=== PATIENT | male | born 1950 | race Caucasian/White ===

== ENCOUNTER 2023-01-30 21:05 | Emergency (ER) | payer MEDICARE, SELFPAY ==
--- NOTE | ~2023-01-30 | XR_ITS ---
EXAMINATION: XR chest 2V Exam Date/Time: 01/30/2023 22:00 CDT HISTORY: Fatigue, loss of appetite. Hx covid x3wks ago Comparison: 11/03/2018. RESULT: Lines, tubes, and devices: None. Lungs and pleura: Senescent change, otherwise clear. Cardiomediastinal silhouette: Stable. Other: No acute osseous or upper abdominal finding. IMPRESSION: No acute cardiopulmonary process. Reviewed, dictated and finalized at location K.
[2023-01-30 21:08] VITALS: BP 98/73; PULSE 81; RESP 18; TEMP 36.6; O2SAT 95
--- NOTE | 2023-01-30 21:39 | ECG_ITS ---
Measurements Intervals [place] Rate: 68 P: 64 SD: 262 QRS: 33 QRSD: 137 T: 37 QT: 380 QTc: 405 Interpretive Statements SINUS RHYTHM WITH FIRST DEGREE AV BLOCK RIGHT BUNDLE BRANCH BLOCK [120+ ms QRS DURATION, UPRIGHT V1, 40+ ms S IN I/aVL/V4/V5/V6] NO PREVIOUS ECG AVAILABLE FOR COMPARISON Electronically Signed On 01-31-2023 18:00:19 CDT by Suyapa Salgado M.D.
[2023-01-30 22:05] LABS: Basophils Absolute Auto 0.1 K/mm3 (0.0-0.1); Basophils Percent Auto 0.8 % (0.2-1.2); Eosinophils Absolute Auto 0.1 K/mm3 (0-0.3); Eosinophils Percent Auto 1.7 % (0-4.4); Hematocrit 33.9 % (42.0-52.0); Hemoglobin 11.3 g/dL (14.0-18.0); Immature Granulocyte Absolute 0.02 K/mm3 (0.00-0.031); Immature Granulocyte Percent A 0.3 % (0-0.5); Lymphocytes Absolute Auto 2.25 K/mm3 (0.9-3.2); Lymphocytes Percent Auto 37.7 % (18.3-44.2); Mean Corpuscular HGB Conc 33.3 g/dl (32-36); Mean Corpuscular Hemoglobin 32.5 pg (26-34); Mean Corpuscular Volume 97.4 fl (80-100); Mean Platelet Volume 9.6 fl (7.4-10.4); Monocytes Absolute Auto 0.5 K/mm3 (0.1-0.6); Monocytes Percent Auto 8.7 % (2.6-8.5); Neutrophils Percent Auto 50.8 % (45.5-73.1); Platelet Count Result 246 k/mm3 (150-375); Red Blood Count 3.48 M/mm3 (4.6-6.20); Red Cell Distribution Width 12.2 % (11.5-14.5)
[2023-01-30 22:37] VITALS: BP 115/66; PULSE 71; RESP 16; O2SAT 97
[2023-01-30 22:41] LABS: Alanine Aminotransferase 33 U/L (6-50); Alkaline Phosphatase 148 U/L (38-126); Anion Gap 2 mmol/L (8-16); Aspartate Amino Transferase 33 U/L (17-59); Bilirubin,Total 0.4 mg/dL (0.2-1.3); Blood Urea Nitrogen 8 mg/dL (9-20); Calcium 7.9 mg/dL (8.4-10.2); Carbon Dioxide 30 mmol/L (22-30); Chloride 102 mmol/L (98-107); Estimated CRCL calculation 75 ml/min; Estimated Glomerular Filt Rate > 60; Glucose 387 mg/dL (65-110); NT Pro B Type Natriuretic Pept 72 pg/mL (19.9-100); Potassium 4.1 mmol/L (3.4-5.0); Sodium 134 mmol/L (137-145); Troponin I < 0.012 ng/mL (0.000-0.034)
[2023-01-30] MEDS: SODIUM CHLORIDE 0.9% IV 1,000 ML 999 ML IV CONT (22:43)
[2023-01-30 23:17] LABS: Appearance Urine Clear (Clear); Bilirubin Urine Negative (Negative); Blood Urine Negative (Negative); Color Urine Yellow (Yellow); Glucose Urine UA 3+ mg/dL (Negative); Ketones Urine Negative (Negative); Leukocyte Esterase Ur Negative LEU/UL (Negative); Nitrate Urine Negative (Negative); Protein Urine Negative (Negative); Specific Grav Ur 1.027 (1.001-1.035); pH Urine 7.5 (5.0-9.0)
[2023-01-30 23:23] LABS: Add Urine Microscopic? YES
--- NOTE | 2023-01-30 23:39 | ED.GENADULT ---
HPI - General Adult General Chief complaint: Upper Respiratory Infection Stated complaint: uri Time Seen by Provider: 01/30/23 21:39 History of Present Illness HPI narrative: Patient 72-year-old gentleman who presents the emergency department with chief complaint of generalized weakness. Patient reports that he was diagnosed with COVID-19 and had a treatment with steroids and another medication and then was treated with antibiotics and reports that he has continued to felt foggy and just generalized weakness. The patient reports he had a dry cough but denies fever the family noticed that he has been less active than normal the patient also reports he had decreased appetite. Patient does have history of diabetes and reports that his blood sugars have been up and down. Related Data Allergies Allergy/AdvReac Type Severity Reaction Status Date / Time No Known Allergies Allergy Unverified 11/03/18 16:21 Review of Systems Review of Systems: A 10 system review of systems was completed on the patient and is negative except for what is stated in the HPI. Nursing and ancillary documentation was reviewed. Exam Narrative: GENERAL: Well-appearing, well-nourished, and in no acute distress. HEAD: Normocephalic, atraumatic. EYES: PERRLA and EOMI. ENT: Nares clear, no rhinorrhea or epistaxis. Mucous membranes dry. NECK: Supple. CHEST: Clear to auscultation. No respiratory distress. HEART: Regular rate and rhythm. No murmur heard. Normal peripheral pulses. ABDOMEN: Soft, nontender, nondistended, normal active bowel sounds. EXTREMITIES: Normal range of motion. No edema. SKIN: Warm, dry, no rash. NEURO: No focal deficits. Alert and oriented x3. PSYCH: Normal mood and affect. Course Vital Signs Vital signs: Vital Signs Temperature 36.6 C 01/30/23 21:08 Pulse Rate 81 01/30/23 21:08 Respiratory Rate 18 01/30/23 21:08 Blood Pressure 98/73 L 01/30/23 21:08 Pulse Oximetry 95 01/30/23 21:08 Oxygen Delivery Room Air 01/30/23 21:08 Temperature 36.6 C 01/30/23 21:08 Pulse Rate 71 01/30/23 22:37 Respiratory Rate 16 01/30/23 22:37 Blood Pressure 115/66 01/30/23 22:37 Pulse Oximetry 97 01/30/23 22:37 Oxygen Delivery Room Air 01/30/23 21:08 Medical Decision Making MDM Narrative Medical decision making narrative: Differential diagnosis includes pneumonia, dehydration, DKA, UTI, electrolyte abnormality. Chest x-ray showed no evidence of focal infiltrate EKG showed right bundle branch block with a rate of [address] elevation or ST depression Laboratory studies showed a white blood cell count that was 6.0 hemoglobin was 11.3. Electrolytes showed a glucose of 387 but no elevated anion gap and no signs of renal failure creatinine was 0.7. Troponin level was less than 0.02 BNP was 72 urinalysis that showed evidence of 3+ glucose no ketones Vital Signs Vital Signs: Vital Signs Temperature 36.6 C 01/30/23 21:08 Pulse Rate 81 01/30/23 21:08 Respiratory Rate 18 01/30/23 21:08 Blood Pressure 98/73 L 01/30/23 21:08 Pulse Oximetry 95 01/30/23 21:08 Oxygen Delivery Room Air 01/30/23 21:08 Temperature 36.6 C 01/30/23 21:08 Pulse Rate 71 01/30/23 22:37 Respiratory Rate 16 01/30/23 22:37 Blood Pressure 115/66 01/30/23 22:37 Pulse Oximetry 97 01/30/23 22:37 Oxygen Delivery Room Air 01/30/23 21:08 Lab Data 01/30/23 21:58 01/30/23 21:58 Labs: Lab Results 01/30/23 01/30/23 01/30/23 Range/Units 21:58 21:58 23:10 WBC 6.0 (4.5-10.0) K/mm3 RBC 3.48 L (4.6-6.20) M/mm3 Hgb 11.3 L (14.0-18.0) g/dL Hct 33.9 L (42.0-52.0) % MCV 97.4 (80-100) fl MCH 32.5 (26-34) pg MCHC 33.3 (32-36) g/dl RDW 12.2 (11.5-14.5) % Plt Count 246 (150-375) k/mm3 MPV 9.6 (7.4-10.4) fl Immature Gran % (Auto) 0.3 (0-0.5) % Neut % (Auto) 50.8 (45.5-73.1) % Lymph % (Auto) 37.7 (18.3-44.2) %
[2023-01-30 23:50] VITALS: BP 130/74; PULSE 74; RESP 19; O2SAT 99
[2023-01-30 23:52] LABS: Glucose Point of Care 282 mg/dl (65-105)
== END 2023-01-30 23:50 | disposition home or self-care (01) ==
PROVIDERS: Physician Assistant; Emergency Provider Emergency Medicine; PCP Physician Assistant
DX: U07.1 COVID-19 (principal); R53.1 Weakness; E11.65 Type 2 diabetes mellitus with hyperglycemia; I44.0 Atrioventricular block, first degree; I45.10 Unspecified right bundle-branch block
CPT/HCPCS: 36415; 71046; 80053; 81001; 82948; 83880; 84484; 85025; 93005; 96360; 99283; J7030

== ENCOUNTER 2024-01-15 18:06 | Observation (INO) | payer MEDICARE, SELFPAY ==
[2024-01-15] VITALS (10 sets, daily range): BP systolic 136–195; BP diastolic 89–111; PULSE 92–109; RESP 12–20; TEMP 36.8; O2SAT 99–100
--- NOTE | ~2024-01-15 | MR_ITS ---
EXAMINATION: MR cervical spine wo/w con DATE: 01/16/2024 13:43 INDICATION: Bilateral lower extremity numbness. TECHNIQUE: Magnetic resonance imaging (MRI) of the cervical spine was performed without and with 15 m L MultiHance intravenous contrast. COMPARISON: None. FINDINGS: Bone alignment is normal. Vertebral body heights are normal. There is mildly decreased disc height from C3-C4 through C6-C7. The spinal cord signal intensity is normal. The following disc leve ls are specifically discussed: C2-C3: The disc does not extend beyond the endplate margin. There is mild left uncovertebral joint os teoarthritis. There is mild bilateral facet joint osteoarthritis. There is mild left neural foraminal stenosis. There is no central canal stenosis. C3-C4: The disc is bulging. There is severe bilateral uncovertebral joint osteoarthritis. There is se emily right and mild left facet joint osteoarthritis. There is moderate right and mild left neural for aminal stenosis. There is mild central canal stenosis. C4-C5: The disc is bulging. There is severe bilateral uncovertebral joint osteoarthritis. There is mo derate and mild left facet joint osteoarthritis. There is moderate bilateral neural foraminal stenosi s. There is mild central canal stenosis. C5-C6: The disc is bulging. There is severe right and moderate left uncovertebral joint osteoarthriti s. There is mild bilateral facet joint osteoarthritis. There is moderate right and mild left neural f oraminal stenosis. There is mild central canal stenosis. C6-C7: The disc is bulging. There is severe bilateral uncovertebral joint osteoarthritis. There is se emily right and moderate left facet joint osteoarthritis. There is mild bilateral neural foraminal mohan nosis. There is mild central canal stenosis. C7-T1: There is a central extrusion. There is no uncovertebral joint osteoarthritis. There is moderat e bilateral facet joint osteoarthritis. There is mild bilateral neural foraminal stenosis. There is m ild central canal stenosis. IMPRESSION: 1. Moderate cervical spondylosis. Reviewed, dictated and finalized at location A.
--- NOTE | ~2024-01-15 | XR_ITS ---
EXAMINATION: XR chest 2V DATE: 01/15/2024 23:40 INDICATION: Weakness after fall TECHNIQUE: Frontal and lateral views of the chest are obtained COMPARISON: 01/30/2023 FINDINGS: The lungs are free of acute opacities. No pleural effusion or pneumothorax. The cardiomedia stinal silhouette is normal. There is moderate thoracic spondylosis. IMPRESSION: 1. No acute cardiopulmonary abnormality. Reviewed, dictated and finalized at location F.
--- NOTE | ~2024-01-15 | CT_ITS ---
EXAMINATION: CT thoracic lumbar w con DATE: 01/16/2024 13:54 INDICATION: Bilateral lower extremity numbness. TECHNIQUE: Computed tomography (CT) of the thoracic and lumbar spine was performed with 100 mL Omnipa que 350 intravenous contrast. Automated exposure control and iterative reconstruction technique were employed. The dose-length product was 1209.99 mGy-cm. COMPARISON: MRI 01/16/24 FINDINGS: CT THORACIC SPINE: There is a small sliding hiatal hernia. There is 6 degrees levocurvature of upper thoracic spine. Vertebral body heights are normal. Intervertebral disc heights are normal. There is m ultilevel mild facet joint osteoarthritis. No neural foraminal stenosis or central canal stenosis. CT LUMBAR SPINE: There is internal fixation of right ilium and right cingulate joint. Bone alignment normal. Vertebral body heights are normal. There is severely decreased disc height from L1-L2 through L5-S1. The following disc levels are specifically discussed: L1-L2: The disc is bulging. There is mild bilateral facet joint osteoarthritis. There is mild bilater al neural foraminal stenosis. There is mild central canal stenosis. L2-L3: The disc is bulging. There is mild bilateral facet joint osteoarthritis. There is moderate maría ateral neural foraminal stenosis. There is mild central canal stenosis. L3-L4: The disc is bulging. There is moderate bilateral facet joint osteoarthritis. There is hypertro phy of the ligamentum flavum. There is mild right and moderate left neural foraminal stenosis. There is moderate central canal stenosis. L4-L5: The disc is bulging. There is severe right and moderate left facet joint osteoarthritis. There is hypertrophy of the ligamentum flavum. There is moderate bilateral neural foraminal stenosis. Ther e is moderate central canal stenosis. L5-S1: The disc is bulging. There is severe right and moderate left facet joint osteoarthritis. There is mild right and moderate left neural foraminal stenosis. There is mild central canal stenosis. IMPRESSION: 1. Mild thoracic spondylosis and severe lumbar spondylosis. Reviewed, dictated and finalized at location A.
--- NOTE | ~2024-01-15 | CT_ITS ---
EXAMINATION: CT brain wo con INDICATION: Dizziness and weakness COMPARISON: None TECHNIQUE: Standard unenhanced head CT. The dose-length product (DLP) was 681.00 mGy-cm. The mA was a djusted according to patient size. Iterative reconstruction technique was employed. FINDINGS: No acute intraparenchymal hemorrhage. No evidence of mass lesion. No evidence of acute infa rction. There is a small, chronic right parietal infarct. There is mild periventricular and subcortic al hypodensity probably related to small vessel ischemic disease. There is mild prominence of the sul ci and ventricles related to cerebral atrophy. Intracranial calcified cerebral atherosclerosis is not ed. No extra-axial collections. No mass effect or midline shift. Again noted is a chronic deformity o f the right frontal skull with partial opacification of the frontal sinus. The visualized sinuses and mastoid air cells are well aerated. IMPRESSION: 1. No acute intracranial abnormality. 2. Age related findings. Reviewed, dictated and finalized at location F.
--- NOTE | ~2024-01-15 | CT_ITS ---
EXAMINATION: CT cervical spine w con DATE: 01/16/2024 13:54 INDICATION: Bilateral lower extremity numbness. TECHNIQUE: Computed tomography (CT) of the cervical spine was performed with 100 mL Omnipaque 350 int ravenous contrast. Automated exposure control and iterative reconstruction technique were employed. T he dose-length product was 387.20 mGy-cm. COMPARISON: Cervical spine MRI 01/16/2024 FINDINGS: There is 3 degrees levocurvature of cervical spine. Vertebral body heights are normal. Ther e is mildly decreased disc height from C3-C4 through C6-C7. The following disc levels are specificall y discussed: C2-C3: The disc does not extend beyond the endplate margin. There is mild left uncovertebral joint osteoarthritis. There is mild bilateral facet joint osteoarthritis. There is mild left neural foraminal stenosis. There is no central canal stenosis. C3-C4: There is severe bilateral uncovertebral joint osteoarthritis. There is severe right and mild l eft facet joint osteoarthritis. There is moderate right and mild left neural foraminal stenosis. Ther e is mild central canal stenosis. C4-C5: There is severe bilateral uncovertebral joint osteoarthritis. There is moderate and mild left facet joint osteoarthritis. There is moderate bilateral neural foraminal stenosis. There is mild cent ral canal stenosis. C5-C6: There is severe right and moderate left uncovertebral joint osteoarthritis. There is mild bila teral facet joint osteoarthritis. There is moderate right and mild left neural foraminal stenosis. Th ere is mild central canal stenosis. C6-C7: There is severe bilateral uncovertebral joint osteoarthritis. There is severe right and modera te left facet joint osteoarthritis. There is mild bilateral neural foraminal stenosis. There is mild central canal stenosis. C7-T1: There is no uncovertebral joint osteoarthritis. There is moderate bilateral facet joint osteoa rthritis. There is mild bilateral neural foraminal stenosis. There is mild central canal stenosis. IMPRESSION: 1. Moderate cervical spondylosis. Reviewed, dictated and finalized at location A.
--- NOTE | ~2024-01-15 | CT_ITS ---
EXAMINATION: CT abdomen pelvis w con INDICATION: Right lower quadrant pain TECHNIQUE: Computed tomographic images of the abdomen and pelvis were obtained after the administrati on of 100 cc of Omnipaque 350 intravenous contrast. The dose-length product (DLP) was 520.69 mGy-cm. Automated exposure control and iterative reconstruction technique were employed. COMPARISON: None available FINDINGS: Minimal dependent atelectasis is present in the lung bases. The heart size is normal. There is mild circumferential wall thickening of the distal esophagus. The liver, spleen, pancreas, and ad renal glands are normal. A stone is present in the nondistended gallbladder. There are large divertic jesenia of the second and third portions of the duodenum. Cysts of the kidneys measure up to 17 mm on the left. There is a 9 mm left kidney lower pole. There is a 2 mm stone of the right kidney lower pole. No pathologically enlarged abdominal or pelvic lymph nodes are identified. No free intraperitoneal ga s or evidence of bowel obstruction. A moderate volume of colonic stool is present. There is severe audra mbar spondylosis. There are surgical changes in the right pelvis. IMPRESSION: 1. No CT correlate for the patient's symptoms. 2. Circumferential wall thickening of the distal esophagus which could reflect esophagitis. 3. Nonobstructing bilateral nephrolithiasis. Reviewed, dictated and finalized at location F.
--- NOTE | ~2024-01-15 | MR_ITS ---
EXAMINATION: MR brain/brain stem wo/w con DATE: 01/16/2024 13:43 INDICATION: Bilateral lower extremity weakness. Disequilibrium. Ataxia. TECHNIQUE: Magnetic resonance imaging (MRI) of the brain and brainstem was performed without and with 15 mL MultiHance intravenous contrast. COMPARISON: Head CT 01/15/2024 FINDINGS: There are scattered areas of nonspecific increased T2-weighted signal intensity in the cere bral white matter and amelie. There is no intracranial hemorrhage, acute infarction, or abnormal intrac ranial mass lesion. The ventricles are normal in size. There are likely changes of ocular lens replac ement surgeries. There is opacification of the right frontal sinuses with anterior bone dehiscence an d scalp indentation. There is a left mastoid effusion. IMPRESSION: 1. Moderate nonspecific cerebral white matter disease and pontine disease, which likely represents ch ronic small vessel ischemic disease. Reviewed, dictated and finalized at location A. IMPRESSION: 1. Moderate nonspecific cerebral white matter disease and pontine disease, whic h likely represents chronic small vessel ischemic disease.
--- NOTE | ~2024-01-15 | CT_ITS ---
EXAMINATION: CTA brain carotid DATE: 01/15/2024 22:02 INDICATION: Dizziness TECHNIQUE: Computed tomographic angiography (CTA) of the head was performed without and with 100 mL O mnipaque-350 intravenous contrast. CTA of the neck was performed with intravenous contrast. The dose- length product was 984.94 mGy-cm. Maximum intensity projection and volume rendered 3D-reconstructions were created by the technologist on a separate workstation. Automated exposure control and iterative reconstruction technique were employed. COMPARISON: 01/15/2024 FINDINGS: HEAD CTA: There is no acute intraparenchymal hemorrhage. No evidence of mass lesion. No evidence of a cute infarction. A small chronic right parietal infarct is again noted. There is mild periventricular and subcortical hypodensity probably related to small vessel ischemic disease. There is mild promine nce of the sulci and ventricles related to cerebral atrophy. Intracranial calcified cerebral atherosc lerosis is noted. There are no extra-axial collections. There is no mass effect or midline shift. The orbits and soft tissues are unremarkable. There is a chronic deformity of the right frontal skull wi th partial opacification of the frontal sinus. The visualized sinuses and mastoid air cells are other stone well aerated. There is no significant stenosis of the basilar artery or posterior cerebral arteries. There is no si gnificant stenosis of the intracranial internal carotid arteries or the anterior or middle cerebral a rteries. The anterior communicating artery communicating arteries are normal. There is no aneurysm. T he left vertebral artery is dominant. NECK CTA: The thyroid gland is unremarkable. The submandibular and parotid glands are symmetric. Ther e is no lymphadenopathy. There are no masses identified. The airway is unremarkable. The superior med iastinum is unremarkable. There is mild cervical spondylosis. There is 0% stenosis of the proximal right internal carotid artery relative to normal distal artery l umen diameter (NASCET criteria). There is 0% stenosis of the proximal left internal carotid artery re lative to normal distal artery lumen diameter. IMPRESSION: 1. No acute intracranial abnormality. No large vessel effusion. 2. 0% stenosis of the proximal right internal carotid artery relative to normal distal artery lumen d iameter (NASCET criteria). 3. 0% stenosis of the proximal left internal carotid artery relative to normal distal artery lumen di ameter. Reviewed, dictated and finalized at location F. IMPRESSION: 1. No acute intracranial abnormality. No large vessel effusion. 2. 0% stenosis of the proximal right internal carotid artery relative to normal distal artery lumen diameter (NASCET criteria). 3. 0% stenosis of the proximal left internal carotid artery relative to normal distal artery lumen diameter.
--- NOTE | ~2024-01-15 | MR_ITS ---
EXAMINATION: MR lumbar spine wo/w con DATE: 01/16/2024 13:43 INDICATION: Bilateral lower extremity numbness TECHNIQUE: Magnetic resonance imaging (MRI) of the lumbar spine was performed without and with 15 mL Multihance intravenous contrast. Sequences included sagittal T2-weighted FSE, sagittal T2-weighted FS FSE, and sagittal and axial T1-weighted FSE. Postcontrast sequences included axial T2-weighted FSE, sagittal T1-weighted FSE, and axial and sagittal T1-weighted FS FSE. COMPARISON: CT abdomen pelvis dated 01/15/2024 FINDINGS: Alignment is normal. Vertebral body heights are normal. Sacralized L5 segment. And annular fissures f rom L1-L2 through L5-S1. Moderate disc height loss at L1-L2 and L2-L3 and mild to moderate disc heigh t loss at L3-L4, L4-L5 and L5-S1. Mild fibrovascular degenerative endplate changes with mild enhancem ent along the posterior margin of the L1-L2 through L4-L5 disc spaces. The conus medullaris terminate s at L1. There is normal signal in the caudal spinal cord. There is magnetic metallic field artifact such with a plate and screw fixation along the right iliac crest. No abnormally enhancing lesions karlos ntified. Paravertebral soft tissues are unremarkable. The following disc levels are specifically disc ussed: T12-L1: The disc does not extend beyond the endplate margin. There is mild bilateral facet joint oste oarthritis. There is no neural foraminal stenosis. There is no central canal stenosis. L1-L2: Disc is bulging with annular fissure. There is mild bilateral facet joint osteoarthritis. Ther e is mild bilateral neural foraminal stenosis. There is mild central canal stenosis. L2-L3: Disc is bulging with annular fissure. There is mild bilateral facet joint osteoarthritis. Ther e is moderate bilateral neural foraminal stenosis. There is mild to moderate central canal stenosis. L3-L4: Disc is bulging with annular fissure. There is hypertrophy of the ligamentum flavum. There is moderate bilateral facet joint osteoarthritis. There is moderate bilateral neural foraminal stenosis. There is moderate to severe central canal stenosis. L4-L5: Disc is bulging with annular fissure. There is hypertrophy of the ligamentum flavum. There is moderate bilateral facet joint osteoarthritis. There is moderate bilateral neural foraminal stenosis. There is moderate to severe central canal stenosis. L5-S1: Disc is bulging with annular fissure. There is mild right and moderate left facet joint osteoa rthritis. There is mild right and moderate left neural foraminal stenosis. There is no central canal stenosis. IMPRESSION: 1. Moderate lumbar spondylosis. Reviewed, dictated and finalized at location A.
--- NOTE | ~2024-01-15 | MR_ITS ---
EXAMINATION: MR thoracic spine wo/w con DATE: 01/16/2024 13:43 INDICATION: Bilateral lower extremity numbness. TECHNIQUE: Magnetic resonance imaging (MRI) of the thoracic spine was performed without and with 15 m L MultiHance intravenous contrast. COMPARISON: None FINDINGS: There is 6 degrees levocurvature of upper thoracic spine. Vertebral body heights are normal . Intervertebral disc heights are normal. There is multilevel mild facet joint osteoarthritis. No guadalupe ral foraminal stenosis. The distant extend beyond the endplate margins in thoracic spine. No neural f oraminal stenosis or central canal stenosis. The spinal cord signal intensity is normal. IMPRESSION: 1. Mild thoracic facet joint osteoarthritis. Reviewed, dictated and finalized at location A.
--- NOTE | 2024-01-15 18:11 | ECG_ITS ---
Measurements Intervals [place] Rate: 89 P: 92 CO: 242 QRS: 22 QRSD: 145 T: 31 QT: 389 QTc: 475 Interpretive Statements SINUS RHYTHM WITH FIRST DEGREE AV BLOCK ATRIAL PREMATURE COMPLEX RIGHT BUNDLE BRANCH BLOCK BASELINE ARTIFACT- I, III, AVR, AVL, AVF, V4 ABNORMAL ECG COMPARED TO ECG 01/30/2023 22:29:54 NO SIGNIFICANT CHANGES Electronically Signed On 01-15-2024 19:15:09 CDT by Gray Perez D.O.
--- NOTE | 2024-01-15 18:20 | ED.FALL ---
HPI - Fall General Chief Complaint: Fall <EFFIE العراقي Last Filed: 01/15/24 23:52> Stated Complaint: dizzy <EFFIE العراقي Last Filed: 01/15/24 23:52> Time Seen by Provider: 01/15/24 18:17 <EFFIE العراقي Last Filed: 01/15/24 23:52> Source: patient <EFFIE العراقي Last Filed: 01/15/24 23:52> Mode of arrival: EMS <EFFIE العراقي Last Filed: 01/15/24 23:52> Limitations: no limitations <EFFIE العراقي Last Filed: 01/15/24 23:52> History of Present Illness HPI Narrative: Patient is a 73 y/o male, with PMH of DM, who presents to the ED via EMS with report of weakness. Patient reports he was walking across his house today when his legs suddenly gave out on him. States he felt as though his legs stopped working. He fell backwards onto his bottom. Denies HI/LOC/syncope. Denies any injury from the fall, but states he was unable to get back up off the ground by myself or with assistance. EMS was then called. BG was 240 per EMS. Patient states he still feels weak currently. Denies focal weakness. States it involved both of his legs. Denies weakness of arms. He does c/o dizziness/lightheadedness for last couple of hours, which began after the fall. Unable to describe this further. Denies slurred speech, trouble speaking, vision changes, confusion, numbness, CP, SOB, ABD pain, N/V, fevers, recent illness. <EFFIE العراقي Last Filed: 01/15/24 23:52> Related Data Home Medications: Home Medications Medication Instructions Recorded Confirmed aripiprazole 2 mg tablet 2 mg PO DAILY PRN depression 01/16/24 01/16/24 bupropion HCl 150 mg tablet,12 hr 150 mg PO BID 01/16/24 01/16/24 sustained-release buspirone 10 mg tablet 10 mg PO BID 01/16/24 01/16/24 donepezil 5 mg tablet 5 mg PO HS 01/16/24 01/16/24 escitalopram oxalate 20 mg tablet 20 mg PO DAILY 01/16/24 01/16/24 fluticasone propionate 50 2 spray intranasal DAILY PRN 01/16/24 01/16/24 mcg/actuation nasal Congestion spray,suspension insulin aspar prot-insulin aspart 35 unit subcut BIDAC 01/16/24 01/16/24 100 unit/mL (70-30) subcutaneous pen (Novolog Mix 70-30FlexPen U-100) lorazepam 0.5 mg tablet 0.5 mg PO BID PRN Anxiety 01/16/24 01/16/24 omeprazole 20 mg capsule,delayed 20 mg PO DAILY 01/16/24 01/16/24 release <Maria Dolores Ventura PA-C - Last Filed: 01/15/24 23:52> Allergies/Adverse Reactions: Allergies Allergy/AdvReac Type Severity Reaction Status Date / Time No Known Allergies Allergy Unverified 11/03/18 16:21 <Maria Dolores Ventura PA-C - Last Filed: 01/15/24 23:52> Review of Systems Review of Systems: CONSTITUTIONAL: Denies fever, chills, or sweats. ENT: Denies vision changes CARDIOVASCULAR: Denies chest pain. RESPIRATORY: Denies dyspnea. GASTROINTESTINAL: Denies abdominal pain, nausea, vomiting, or diarrhea. MUSCULOSKELETAL: Denies back pain, extremity pain, myalgia. NEUROLOGIC: see HPI. <EFFIE العراقي Last Filed: 01/15/24 23:52> All systems reviewed & are unremarkable except as noted in HPI and below <EFFIE العراقي Last Filed: 01/15/24 23:52> [facility] Past Medical History Medical History: Medical History (Updated 01/16/24 @ 01:23 by Africa Asher DO) Anxiety and depression Kidney stones Skin cancer Type 2 diabetes mellitus <EFFIE العراقي Last Filed: 01/15/24 23:52> Surgical History Surgical History: Surgical History (Updated 01/16/24 @ 01:05 by Africa Asher DO) H/O inguinal hernia repair (~2002) History of right hip replacement <Maria Dolores Ventura PA-C - Last Filed: 01/15/24 23:52> Family History Family History: Family History Father Cerebrovascular accident Acute myocardial infarction Mother No problems noted. Sibling Cerebral palsy <[facility]
[2024-01-15 18:30] LABS: Basophils Absolute Auto 0.1 K/mm3 (0.0-0.1); Basophils Percent Auto 0.6 % (0.2-1.2); Eosinophils Absolute Auto 0.2 K/mm3 (0-0.3); Eosinophils Percent Auto 2.2 % (0-4.4); Hematocrit 39.5 % (42.0-52.0); Hemoglobin 13.7 g/dL (14.0-18.0); Immature Granulocyte Absolute 0.04 K/mm3 (0.00-0.031); Immature Granulocyte Percent A 0.4 % (0-0.5); Lymphocytes Absolute Auto 1.89 K/mm3 (0.9-3.2); Lymphocytes Percent Auto 19.1 % (18.3-44.2); Mean Corpuscular HGB Conc 34.7 g/dl (32-36); Mean Corpuscular Hemoglobin 32.4 pg (26-34); Mean Corpuscular Volume 93.4 fl (80-100); Monocytes Absolute Auto 0.8 K/mm3 (0.1-0.6); Neutrophils Absolute Auto 6.9 K/mm3 (1.3-6.7); Neutrophils Percent Auto 69.7 % (45.5-73.1); Platelet Count Result 259 k/mm3 (150-375); Red Blood Count 4.23 M/mm3 (4.6-6.20); Red Cell Distribution Width 11.9 % (11.5-14.5); White Blood Count 9.9 K/mm3 (4.5-10.0)
[2024-01-15 18:34] LABS: Glucose Point of Care 260 mg/dl (65-105)
[2024-01-15 18:40] LABS: Magnesium 1.6 mg/dL (1.6-2.3)
[2024-01-15 18:50] LABS: Alanine Aminotransferase 26 U/L (6-50); Albumin Level 4.1 g/dL (3.5-5.1); Alkaline Phosphatase 161 U/L (38-126); Anion Gap 8 mmol/L (4-12); Aspartate Amino Transferase 29 U/L (17-59); Bilirubin,Total 0.9 mg/dL (0.2-1.3); Blood Urea Nitrogen 11 mg/dL (9-20); Calcium 9.6 mg/dL (8.4-10.2); Carbon Dioxide 26 mmol/L (22-30); Chloride 100 mmol/L (98-107); Estimated CRCL calculation 65 ml/min; Estimated Glomerular Filt Rate > 60; Glucose 260 mg/dL (65-110); Potassium 3.8 mmol/L (3.4-5.0); Sodium 134 mmol/L (137-145)
[2024-01-15 18:53] LABS: Troponin I < 0.012 ng/mL (0.000-0.034)
[2024-01-15] MEDS: SODIUM CHLORIDE 0.9% IV 1,000 ML 999 ML IV CONT ×2 (19:18→21:42)
[2024-01-15] MEDS: MECLIZINE HCL 25 MG TABLET PO (19:18)
[2024-01-15] MEDS: MAGNESIUM SULF 2 GM/WATER 50ML 2 GM/50 ML BAG IVPB (19:18)
[2024-01-15 20:02] LABS: Phosphorus 2.4 mg/dL (2.5-4.5)
[2024-01-15 20:04] LABS: Bacteria Urine None Seen /hpf; Non Pathogenic Casts 0-2; RBC Urine 0-2 /hpf (0-2); Squamous Epithelial Cell Urine None Seen /hpf (Few); WBC Urine 0-5 /hpf (0-3)
[2024-01-15 20:10] LABS: Beta-Hydroxybutyrate/Acetoacetate 0.21 mmol/L (0.02-0.27)
[2024-01-15 20:12] LABS: Color Urine Yellow (Yellow)
[2024-01-15 20:13] LABS: Appearance Urine Clear (Clear); Glucose Urine UA 2+ mg/dL (Negative); Ketones Urine Negative (Negative); Protein Urine Negative (Negative); Specific Grav Ur 1.015 (1.001-1.035); pH Urine 8.5 (5.0-9.0)
[2024-01-15 20:14] LABS: Add Urine Microscopic? YES; Bilirubin Urine Negative (Negative); Blood Urine Negative (Negative); Leukocyte Esterase Ur Negative LEU/UL (Negative); Nitrate Urine Negative (Negative); Urobilinogen Urine 0.2 mg/dL (<2.0)
[2024-01-15 20:18] LABS: Creatine Kinase 247 U/L (55-170)
[2024-01-15] MEDS: diazePAM INJ (*CRX) 10 MG/2 ML SYRINGE 2 MG IV PUSH (21:42)
[2024-01-15 22:12] LABS: Influenza A QL RT-PCR Negative (Negative); Influenza B QL RT-PCR Negative (Negative); RSV RNA, RT-PCR Negative (Negative); SARS-CoV-2 RNA PCR Negative (Negative)
[2024-01-16] VITALS (8 sets, daily range): BP systolic 124–165; BP diastolic 75–96; PULSE 90–103; RESP 16; TEMP 36.4–37.2; O2SAT 94–96
--- NOTE | 2024-01-16 01:04 | PM.IMHP ---
H&P: HPI History of Present Illness Date/Time: 01/16/24 01:04 Chief Complaint: Legs gave out Narrative: 73-year-old male with a past medical history of anxiety, depression, insulin-dependent diabetes mellitus and GERD who presented to the ER from home via EMS due to weakness. The patient states he was walking to his desk chair and right before he went to sit down his legs gave out. He reports that since he fell his legs have been numb. The patient states the numbness is acute. However on exam the patient is able to drag his feet away from my noxious stimuli, lift them up from the bed, perform heel to au and wiggle his toes. He denies any history of peripheral neuropathy but has a longstanding history of insulin-dependent diabetes mellitus and arrived hyperglycemic to the hospital. He reports his glucoses are usually around 180. He denies any back pain with movement. ER staff noted the patient had a broad-based shuffling gait. Orthostatics are report formed after the patient received 2-3 L in fluid bolus were negative for blood pressure changes but still had significant tachycardia when going from sitting to standing. The patient has dry mucous membranes on exam but denies difficulty with drinking liquids. He states that his appetite has been declining for several months if not up to a year. He does report pain in his epigastric region that is intermittent in nature. He denies a history of GERD or taking antacid medications but is on omeprazole at home. He had reported to the ER staff initially that he was dizzy. On further questioning he denied feeling dizzy and stated he was lightheaded. Later on with questioning he said that he was off balance. He denies any headache or vision changes. He denies history of stroke. He denies difficulty with urination but has had multiple voids in the ER and had only been on the medical floor for about 20 minutes and had 2 separate voids of over 200 mL. Patient did have a palpable bladder on exam and I asked nursing staff to perform bladder scan which demonstrated greater than 450 mL. The patient denies any history of bowel incontinence. He states that he has not had a bowel movement in 1 week but has not attempted to take any medications to past bowels. CT scan does not mention large stool load and on my review of imaging the patient's rectum appears empty with only moderate scattered stool on exam. Patient's bladder was distended on imaging. He denies any difficulty swallowing or eating he does reports decreased appetite. He denies any significant injury from the fall. His blood sugars in the ER were to 41. He states he does not think he received his insulin at home.. Patient was not able to give a accurate account of his home meds even with use of external medication reconciliation. Nursing staff is attempting to contact the patient's for further details. Review of Systems Review of Systems: 12 systems were reviewed with pertinent positives and negatives per HPI. Except as documented in the HPI, all other systems were reviewed and are negative. [facility] Past Medical History Medical History (Updated 01/16/24 @ 03:02 by Africa Asher DO) Anxiety and depression Kidney stones Skin cancer Type 2 diabetes mellitus Surgical History Surgical History (Updated 01/16/24 @ 01:05 by Africa Asher DO) H/O inguinal hernia repair (~2002) History of right hip replacement Family History Family History Father Cerebrovascular accident Acute myocardial infarction Mother No problems noted. Sibling Cerebral palsy Social History Social History (Updated 01/16/24 @ 02:51 by Africa Asher DO) Social History: Patient lives in [place] with his . Smoking status: Never smoker Alcohol intake: former Substance use: never Do You Feel Safe in your Home?: Yes Lack of Transportation: No Lack of Food: Never T
--- NOTE | 2024-01-16 01:16 | ADMGEN ---
This patient, Jose Manuel Escamilla, was admitted to [facility] Surg Room 306-01. Patient/family oriented to hospital policies and general routines including ID bracelet, bed and alarms, visiting hours, pain management, procedures, bathroom and other care routines, personal items, smoking policy, room service/diet, and visiting hours. Information on how to activate the Rapid Response Team has been discussed. Patient/Family are encouraged to report perceived risks to care and to ask questions if they do not understand what they are told or what they should do.
[2024-01-16] MEDS: POTASSIUM/PHOSPHORUS/SODIUM 1.5 GM PACKET 1 PACKET PO (02:22)
[2024-01-16] MEDS: LIDOCAINE HCL 2% GEL UROJET 10 ML PKG MUCOUS MEM (02:24)
[2024-01-16] MEDS: PANTOPRAZOLE SODIUM IV 40 MG VIAL IV PUSH ×3 (03:03→20:34)
[2024-01-16] MEDS: SODIUM CHLORIDE 0.9% IV 1,000 ML 100 ML IV CONT ×2 (03:12→16:12)
[2024-01-16] MEDS: SUCRALFATE SUSP 100 MG/ML 10 ML UDC 1000 MG PO ×4 (06:20→20:34)
--- NOTE | 2024-01-16 06:27 | PC.NURSE ---
Call placed to , Kasey, to review pt's home medications. Kasey requesting for a return call later as she is still in bed. Will pass on to next nurse.
[2024-01-16 07:36] LABS: Hematocrit 39.9 % (42.0-52.0); Hemoglobin 13.3 g/dL (14.0-18.0); Mean Corpuscular HGB Conc 33.3 g/dl (32-36); Mean Corpuscular Hemoglobin 32.3 pg (26-34); Mean Corpuscular Volume 96.8 fl (80-100); Mean Platelet Volume 9.4 fl (7.4-10.4); Platelet Count Result 257 k/mm3 (150-375); Red Blood Count 4.12 M/mm3 (4.6-6.20); White Blood Count 9.7 K/mm3 (4.5-10.0)
[2024-01-16 07:48] LABS: Anion Gap 9 mmol/L (4-12); Blood Urea Nitrogen 8 mg/dL (9-20); Calcium 8.4 mg/dL (8.4-10.2); Carbon Dioxide 21 mmol/L (22-30); Chloride 105 mmol/L (98-107); Creatine Kinase 353 U/L (55-170); Estimated CRCL calculation 73 ml/min; Estimated Glomerular Filt Rate > 60; Glucose 190 mg/dL (65-110); Magnesium 1.7 mg/dL (1.6-2.3); Potassium 3.2 mmol/L (3.4-5.0); Sodium 135 mmol/L (137-145)
[2024-01-16 08:02] LABS: Glucose Point of Care 219 mg/dl (65-105)
[2024-01-16 08:23] LABS: Hemoglobin A1C 11.8 % (<5.7)
[2024-01-16] MEDS: ESCITALOPRAM OXALATE 10 MG TABLET 20 MG PO (08:31)
[2024-01-16] MEDS: buPROPion HCL SR (12 HR) 150 MG TAB PO ×2 (08:31→20:34)
[2024-01-16] MEDS: LORazepam (*CRX) 0.5 MG TABLET PO (08:31)
[2024-01-16] MEDS: polyethylene glycoL 3350 17 GM POWD.PACK PO (08:32)
[2024-01-16] MEDS: busPIRone HCL 10 MG TABLET PO ×2 (08:32→16:13)
[2024-01-16] MEDS: TAMSULOSIN HCL 0.4 MG CAPSULE PO (08:32)
[2024-01-16] MEDS: BISACODYL 5 MG TABLET EC PO (08:32)
[2024-01-16 08:51] LABS: Folic Acid 16.2 ng/mL (2.76->20)
[2024-01-16 11:38] LABS: Glucose Point of Care 277 mg/dl (65-105)
[2024-01-16] MEDS: ACETAMINOPHEN 325 MG TABLET 650 MG PO ×2 (11:50→22:53)
--- NOTE | 2024-01-16 14:25 | PM.IMPN ---
Progress Note: A&P Assessment and Plan (1) Weakness of both lower extremities: Code(s): R29.898 - Other symptoms and signs involving the musculoskeletal system Status: Acute Assessment and Plan: The patient has been admitted and placed on telemetry to monitor for rhythm disturbances. MRI has been ordered of brain and brainstem to rule out possible acute CVA. B12 and folic acid levels normal Patient does have high glucoses in the setting of diabetes with no prior A1c within our system. CT of cervical, thoracic and lumbar spine showing moderate cervical, mild thoracic and severe lumbar spondylosis. MRI of cervical, thoracic and lumbar spine showing moderate cervical spondylosis, mild thoracic and severe lumbar spondylosis. consult PT and OT for further recommendations and evaluation. (2) Ground-level fall: Code(s): W18.30XA - Fall on same level, unspecified, initial encounter Status: Acute Assessment and Plan: PT and OT consulted. Fall precautions. (3) Type 2 diabetes mellitus with hyperglycemia, without long-term current use of insulin: Code(s): E11.65 - Type 2 diabetes mellitus with hyperglycemia Status: Acute Assessment and Plan: Hemoglobin A1c 11.[address] patient on moderate sliding scale insulin with Accu-Cheks a.c. HS and hypoglycemia protocol. chemical educator consulted. (4) Elevated CK: Code(s): R74.8 - Abnormal levels of other serum enzymes Status: Resolved Assessment and Plan: The patient's CK is mildly elevated which could indicate some mild/early rhabdomyolysis. Repeat CK WNL (5) Hypomagnesemia: Code(s): E83.42 - Hypomagnesemia Status: Acute Assessment and Plan: Replace as nessessary (6) Esophagitis: Code(s): K20.90 - Esophagitis, unspecified without bleeding Status: Acute Assessment and Plan: Will place patient on Protonix IV 40 mg b.i.d. and will add Carafate a.c. HS. (7) Urinary retention: Code(s): R33.9 - Retention of urine, unspecified Status: Acute Assessment and Plan: Patient does have some component of urinary retention noted. Nursing staff to placed catheter with over summer 500 mL of immediate urine return. Will add Flomax daily. Given that the patient is not having any pain with movement or palpation spinal cord injury is less likely. Subjective Date/time seen: 01/16/24 14:25 Interval history: Patient states that his lower extremities are still pretty weak and he is still having the symptoms persist. He does states the symptoms are improved from presentation. We were still unable to get hold patient's to confirm his medication list. Plan to work with PT and OT today. Patient may need placement at discharge. He is not currently having any back pain. States that his numbness goes up close to his hip. He can feel me touching his legs and he can move them as well. Exam Narrative: GENERAL: Comfortable, no acute distress HENMT: moist mucous membranes EYES: EOM intact b/l NECK: no lymphadenopathy RESPIRATORY: clear to auscultation, no increased respiratory effort CARDIO: Regular rate and rhythm GI: soft, nontender, bowel sounds present SKIN/EXTREMITIES: no rashes, no edema, no redness or tenderness NEURO: PROM and AROM intact, answers questions appropriately, Bilateral lower extremity strength 5/5, sensation intact bilaterally of the lower extremities, no point tenderness over the spine Objective Data Vital Signs Vital Signs: Vital Signs - 24 hr 01/15/24 18:03 01/15/24 19:26 01/15/24 20:42 Temperature 98.2 F Pulse Rate 93 93 99 Respiratory Rate 16 16 20 Blood Pressure 189/95 H 159/90 H 136/98 H Pulse Oximetry 100 99 Oxygen Delivery Room Air 01/15/24 23:26 01/15/24 23:26 01/15/24 23:29 Temperature Pulse Rate 99 97 109 H Respiratory Rate
[2024-01-16] MEDS: MAGNESIUM SULF 2 GM/WATER 50ML 2 GM/50 ML BAG IVPB (16:12)
[2024-01-16 16:34] LABS: Glucose Point of Care 327 mg/dl (65-105)
[2024-01-16] MEDS: INSULIN ASPART (*BKC) 100 UNITS/ML SUB-Q ×2 (17:05→20:39)
[2024-01-16 20:42] LABS: Glucose Point of Care 275 mg/dl (65-105)
[2024-01-17] VITALS (9 sets, daily range): BP systolic 131–144; BP diastolic 82–91; PULSE 88–97; RESP 16–20; TEMP 36.8–37.2; O2SAT 97–99; BMI 26.6
[2024-01-17] MEDS: SODIUM CHLORIDE 0.9% IV 1,000 ML 100 ML IV CONT (04:00)
[2024-01-17] MEDS: SUCRALFATE SUSP 100 MG/ML 10 ML UDC 1000 MG PO ×4 (06:11→20:54)
[2024-01-17 07:35] LABS: Hematocrit 37.7 % (42.0-52.0); Hemoglobin 12.3 g/dL (14.0-18.0); Mean Corpuscular HGB Conc 32.6 g/dl (32-36); Mean Corpuscular Hemoglobin 31.8 pg (26-34); Mean Corpuscular Volume 97.4 fl (80-100); Mean Platelet Volume 9.3 fl (7.4-10.4); Platelet Count Result 247 k/mm3 (150-375); Red Blood Count 3.87 M/mm3 (4.6-6.20); Red Cell Distribution Width 12.4 % (11.5-14.5); White Blood Count 10.3 K/mm3 (4.5-10.0)
[2024-01-17 07:52] LABS: Anion Gap 3 mmol/L (4-12); Blood Urea Nitrogen 11 mg/dL (9-20); Carbon Dioxide 23 mmol/L (22-30); Chloride 106 mmol/L (98-107); Estimated CRCL calculation 73 ml/min; Estimated Glomerular Filt Rate > 60; Glucose 200 mg/dL (65-110); Magnesium 1.9 mg/dL (1.6-2.3); Potassium 3.4 mmol/L (3.4-5.0); Sodium 132 mmol/L (137-145)
[2024-01-17 08:11] LABS: Glucose Point of Care 208 mg/dl (65-105)
[2024-01-17] MEDS: INSULIN ASPART (*BKC) 100 UNITS/ML SUB-Q ×2 (08:21→20:56)
[2024-01-17] MEDS: polyethylene glycoL 3350 17 GM POWD.PACK PO ×2 (08:21→12:45)
[2024-01-17] MEDS: ACETAMINOPHEN 325 MG TABLET 650 MG PO (08:21)
[2024-01-17] MEDS: buPROPion HCL SR (12 HR) 150 MG TAB PO ×2 (08:22→20:54)
[2024-01-17] MEDS: TAMSULOSIN HCL 0.4 MG CAPSULE PO (08:22)
[2024-01-17] MEDS: ESCITALOPRAM OXALATE 10 MG TABLET 20 MG PO (08:22)
[2024-01-17] MEDS: busPIRone HCL 10 MG TABLET PO ×2 (08:22→18:12)
[2024-01-17] MEDS: LORazepam (*CRX) 0.5 MG TABLET PO (08:22)
[2024-01-17] MEDS: PANTOPRAZOLE SODIUM IV 40 MG VIAL IV PUSH ×2 (08:25→20:54)
[2024-01-17] MEDS: BISACODYL 5 MG TABLET EC PO (08:25)
--- NOTE | 2024-01-17 08:56 | PCPTNOTE ---
Attempted to see patient for PT, however patient was eating breakfast.
[2024-01-17] MEDS: ONDANSETRON INJ 4 MG/2 ML VIAL IV PUSH (09:05)
[2024-01-17 11:50] LABS: Glucose Point of Care 175 mg/dl (65-105)
--- NOTE | 2024-01-17 12:19 | PM.IMPN ---
Progress Note: A&P Assessment and Plan (1) Weakness of both lower extremities: Code(s): R29.898 - Other symptoms and signs involving the musculoskeletal system Status: Acute Assessment and Plan: The patient has been admitted and placed on telemetry to monitor for rhythm disturbances. MRI has been ordered of brain and brainstem to rule out possible acute CVA. B12 and folic acid levels normal Patient does have high glucoses in the setting of diabetes with no prior A1c within our system. CT of cervical, thoracic and lumbar spine showing moderate cervical, mild thoracic and severe lumbar spondylosis. MRI of cervical, thoracic and lumbar spine showing moderate cervical spondylosis, mild thoracic and severe lumbar spondylosis. Therapy recommending home health. (2) Ground-level fall: Code(s): W18.30XA - Fall on same level, unspecified, initial encounter Status: Acute Assessment and Plan: PT and OT consulted. Fall precautions. (3) Type 2 diabetes mellitus with hyperglycemia, without long-term current use of insulin: Code(s): E11.65 - Type 2 diabetes mellitus with hyperglycemia Status: Acute Assessment and Plan: Hemoglobin A1c 11.[address] patient on moderate sliding scale insulin with Accu-Cheks a.c. HS and hypoglycemia protocol. conservation educator consulted. Patient is on 70 30 insulin aspart at home. Will transition patient over to Lantus 12 units Care coordination consult for insulin (4) Elevated CK: Code(s): R74.8 - Abnormal levels of other serum enzymes Status: Resolved Assessment and Plan: The patient's CK is mildly elevated which could indicate some mild/early rhabdomyolysis. Repeat CK WNL (5) Hypomagnesemia: Code(s): E83.42 - Hypomagnesemia Status: Acute Assessment and Plan: Replace as nessessary (6) Esophagitis: Code(s): K20.90 - Esophagitis, unspecified without bleeding Status: Acute Assessment and Plan: Will place patient on Protonix IV 40 mg b.i.d. and will add Carafate a.c. HS. (7) Urinary retention: Code(s): R33.9 - Retention of urine, unspecified Status: Acute Assessment and Plan: Patient does have some component of urinary retention noted. Nursing staff to placed catheter with over summer 500 mL of immediate urine return. Will add Flomax daily. Given that the patient is not having any pain with movement or palpation spinal cord injury is less likely. Subjective Date/time seen: 01/17/24 12:19 Interval history: Patient states his lower extremity weakness as as numbness and tingling is improved. Now he states the numbness and tingling in the bottoms of feet. This is likely due to his diabetes due to not being able to find any cause of patient's symptoms structurally. I was then called by a the patient's nurse that he has not had a bowel movement 10 days. He is not having much of an appetite either. Ordered MiraLax and soapsuds enema for the patient. He is still passing gas and denies nausea vomiting. Exam Narrative: GENERAL: Comfortable, no acute distress HENMT: moist mucous membranes EYES: EOM intact b/l NECK: no lymphadenopathy RESPIRATORY: clear to auscultation, no increased respiratory effort CARDIO: Regular rate and rhythm GI: soft, nontender, bowel sounds present SKIN/EXTREMITIES: no rashes, no edema, no redness or tenderness NEURO: PROM and AROM intact, answers questions appropriately, Bilateral lower extremity strength 5/5, sensation intact bilaterally of the lower extremities, no point tenderness over the spine Objective Data Vital Signs Vital Signs: Vital Signs - 24 hr 01/16/24 15:15 01/16/24 15:32 01/16/24 16:00 Temperature Pulse Rate 103 H Respiratory Rate Blood Pressure Pulse Oximetry Oxygen Delivery Room Air Room Air 01/16/24 20:31
[2024-01-17 16:53] LABS: Glucose Point of Care 219 mg/dl (65-105)
[2024-01-17] MEDS: INSULIN GLARGINE (*BKC) 100 UNITS/ML 12 UNITS SUB-Q (20:57)
[2024-01-17 21:08] LABS: Glucose Point of Care 275 mg/dl (65-105)
[2024-01-17 21:08] LABS: Glucose Point of Care 254 mg/dl (65-105)
[2024-01-18] VITALS: PULSE 88
[2024-01-18] MEDS: SODIUM CHLORIDE 0.9% IV 1,000 ML 100 ML IV CONT (00:47)
[2024-01-18 04:00] VITALS: PULSE 92
[2024-01-18 06:00] VITALS: BP 151/74; PULSE 86; RESP 18; TEMP 36.6; O2SAT 97
[2024-01-18] MEDS: SUCRALFATE SUSP 100 MG/ML 10 ML UDC 1000 MG PO ×2 (06:09→11:41)
[2024-01-18 07:01] LABS: Hematocrit 36.5 % (42.0-52.0); Hemoglobin 12.2 g/dL (14.0-18.0); Mean Corpuscular HGB Conc 33.4 g/dl (32-36); Mean Corpuscular Hemoglobin 32.4 pg (26-34); Mean Corpuscular Volume 96.8 fl (80-100); Platelet Count Result 244 k/mm3 (150-375); Red Blood Count 3.77 M/mm3 (4.6-6.20); Red Cell Distribution Width 12.4 % (11.5-14.5); White Blood Count 8.1 K/mm3 (4.5-10.0)
[2024-01-18 07:17] LABS: Anion Gap 8 mmol/L (4-12); Blood Urea Nitrogen 10 mg/dL (9-20); Calcium 8.1 mg/dL (8.4-10.2); Carbon Dioxide 21 mmol/L (22-30); Chloride 108 mmol/L (98-107); Estimated CRCL calculation 65 ml/min; Estimated Glomerular Filt Rate > 60; Glucose 121 mg/dL (65-110); Potassium 3.1 mmol/L (3.4-5.0); Sodium 137 mmol/L (137-145)
[2024-01-18 07:52] LABS: Glucose Point of Care 149 mg/dl (65-105)
[2024-01-18] MEDS: ESCITALOPRAM OXALATE 10 MG TABLET 20 MG PO (08:28)
[2024-01-18] MEDS: buPROPion HCL SR (12 HR) 150 MG TAB PO (08:28)
[2024-01-18] MEDS: busPIRone HCL 10 MG TABLET PO (08:28)
[2024-01-18] MEDS: PANTOPRAZOLE 40 MG TABLET PO (08:28)
[2024-01-18] MEDS: polyethylene glycoL 3350 17 GM POWD.PACK PO (08:29)
[2024-01-18] MEDS: TAMSULOSIN HCL 0.4 MG CAPSULE PO (08:29)
[2024-01-18] MEDS: POTASSIUM CHLORIDE 20 MEQ ER TABLET 40 MEQ PO (08:29)
[2024-01-18 11:18] LABS: Glucose Point of Care 177 mg/dl (65-105)
--- NOTE | 2024-01-18 11:47 | PM.DS ---
DS: Admitting Diagnosis Discharge Date 01/18/24 Admitting Diagnosis bilateral extremity numbness and tingling DS: Discharge Diagnosis Discharge Diagnosis (1) Weakness of both lower extremities: Code(s): R29.898 - Other symptoms and signs involving the musculoskeletal system Status: Acute (2) Ground-level fall: Code(s): W18.30XA - Fall on same level, unspecified, initial encounter Status: Acute (3) Type 2 diabetes mellitus with hyperglycemia, without long-term current use of insulin: Code(s): E11.65 - Type 2 diabetes mellitus with hyperglycemia Status: Acute (4) Elevated CK: Code(s): R74.8 - Abnormal levels of other serum enzymes Status: Resolved (5) Hypomagnesemia: Code(s): E83.42 - Hypomagnesemia Status: Acute (6) Esophagitis: Code(s): K20.90 - Esophagitis, unspecified without bleeding Status: Acute (7) Urinary retention: Code(s): R33.9 - Retention of urine, unspecified Status: Acute DS: Summary Hospital Course Hospital Course: This is a 73-year-old with past medical history of anxiety, depression, a bit diabetes anchor the present to the ED he due to weakness and lower extremity numbness and tingling. Patient had been walking has house in his legs gave out. Patient was able to respond to painful stimuli as well as wiggle his toes and perform [id number] maneuver. CT of the head and spine as well as MRI of the head and spine performed which did not show any acute abnormality associated with patient's symptoms. He did have an A1c performed which was 11.8. Patient's symptoms likely due to diabetic neuropathy. He was found to be retaining urine and had Carrasco catheter placed and was started on tamsulosin. He did have some constipation and was given enema was able to have decent sized bowel movement. Patient eating and drinking appropriately. PT and OT evaluated the patient and he was able to walk with a walker without difficulty. Will be discharged home with recommendations of MiraLax, blood glucose monitoring and a change in his insulin. Follow-up with conservation educator as an outpatient. Time Spent with Patient Time attestation: Total time spent providing and/or coordinating discharge services: Exam Narrative: GENERAL: Comfortable, no acute distress HENMT: moist mucous membranes EYES: EOM intact b/l NECK: no lymphadenopathy RESPIRATORY: clear to auscultation, no increased respiratory effort CARDIO: Regular rate and rhythm GI: soft, nontender, bowel sounds present SKIN/EXTREMITIES: no rashes, no edema, no redness or tenderness NEURO: PROM and AROM intact, answers questions appropriately, Bilateral lower extremity strength 5/5, sensation intact bilaterally of the lower extremities, no point tenderness over the spine DS: Data Data Completed and Pending Labs on day of discharge: Labs from last 24 hours 01/18/24 01/18/24 01/18/24 11:16 07:49 05:48 WBC 8.1 RBC 3.77 L Hgb 12.2 L Hct 36.5 L MCV 96.8 MCH 32.4 MCHC 33.4 RDW 12.4 Plt Count 244 MPV 9.0 Sodium 137 Potassium 3.1 L Chloride 108 H Carbon Dioxide 21 L Anion Gap 8 BUN 10 Creatinine 0.80 Estim Creat Clear Calc 65 Estimated GFR > 60 Glucose 121 H POC Capillary Glucose 177 H 149 H Calcium 8.1 L 01/17/24 01/17/24 01/17/24 20:53 20:40 16:51 WBC RBC Hgb Hct MCV MCH MCHC RDW Plt Count MPV Sodium Potassium Chloride Carbon Dioxide Anion Gap BUN Creatinine Estim Creat Clear Calc Estimated GFR Glucose POC Capillary Glucose 254 H 275 H 219 H Calcium 01/17/24 11:41 WBC RBC Hgb Hct MCV MCH MCHC RDW Plt Count MPV Sodium Potassium Chloride Carbon Dioxide Anion Gap BUN Creatinine Estim Creat Clear Calc Estimated GFR Glucose POC Capillary Glucose 175 H Calcium D
[2024-01-18 13:15] VITALS: BMI 26.6
[2024-01-18 14:00] VITALS: BP 151/71; PULSE 91; RESP 18; TEMP 36.7; O2SAT 99
--- NOTE | 2024-01-20 12:24 | PC.NURSE ---
in pt's chart because pt's called to inquire about medications that were sent to pharmacy
--- NOTE | 2024-01-22 10:43 | PC.NURSE ---
patient called stating that his blood sugars has been running very high and called for assistance. This RN reviewed discharging medications with patient and patient noted he never picked up his Metformin from discharge. Patient to call pharmacy to see if medication has been filled and advised to call me back if medication is not available for hand picker. Patient voiced understanding
== END 2024-01-18 14:10 | disposition home or self-care (01) ==
LOC: ANHED 23:21 → ANH3MEDSUR 01-16 01:12
PROVIDERS: Emergency Medicine; Internal Medicine Critical Care Medicine; Admitting Provider Internal Medicine; Emergency Provider Physician Assistant; PCP Emergency Medicine; Visit Provider Hospitalist
DX: R53.1 Weakness (principal); W18.30XA Fall on same level, unspecified, initial encounter; E11.65 Type 2 diabetes mellitus with hyperglycemia; R74.8 Abnormal levels of other serum enzymes; E83.42 Hypomagnesemia; K20.90 Esophagitis, unspecified without bleeding; R33.9 Retention of urine, unspecified; R94.31 Abnormal electrocardiogram [ECG] [EKG]; M47.812 Spondylosis without myelopathy or radiculopathy, cervical region; M47.814 Spondylosis without myelopathy or radiculopathy, thoracic region; M47.816 Spondylosis without myelopathy or radiculopathy, lumbar region; Z20.822 Contact with and (suspected) exposure to COVID-19; K21.9 Gastro-esophageal reflux disease without esophagitis; F41.9 Anxiety disorder, unspecified; F32.A Depression, unspecified; Z96.641 Presence of right artificial hip joint; Z85.828 Personal history of other malignant neoplasm of skin; Z79.4 Long term (current) use of insulin; Z79.899 Other long term (current) drug therapy
CPT/HCPCS: 36415; 70450; 70496; 70498; 70553; 71046; 72126; 72129; 72132; 72156; 72157; 72158; 74177; 80048; 80053; 81001; 82010; 82550; 82607; 82746; 82948; 83036; 83735; 84100; 84443; 84484; 85025; 85027; 87637; 93005; 96361; 96365; 96366; 96375; 96376; 97110; 97116; 97161; 97165; 97530; 97535; 99285; A9270; A9577; C9113; G0378; J1815; J2405; J3360; J3475; J7030; Q9967

== ENCOUNTER 2024-02-08 14:56 | Observation (INO) | payer MEDICARE, SELFPAY ==
--- NOTE | ~2024-02-08 | XR_ITS ---
EXAMINATION: XR chest 2V DATE: 02/08/2024 16:47 INDICATION: Weakness TECHNIQUE: frontal and lateral views of the chest were obtained. COMPARISON: Chest radiograph dated 01/15/2024 FINDINGS: The lungs are clear with no focal airspace opacities, pulmonary edema, pleural effusion or pneumothor ax. The cardiomediastinal silhouette is normal. Old healed fracture of the anterior left seventh rib. IMPRESSION: 1. No acute cardiopulmonary disease. Reviewed, dictated and finalized at location A.
--- NOTE | ~2024-02-08 | CT_ITS ---
EXAMINATION: CT brain wo con DATE: 02/08/2024 17:32 INDICATION: Weakness in the legs. TECHNIQUE: Computed tomography (CT) of the head was performed without intravenous contrast. The mA wa s adjusted according to patient size. Iterative reconstruction technique was employed. The dose-lengt h product was 681.00 mGy-cm. COMPARISON: Head CT 01/15/2024 FINDINGS: There are scattered areas of low attenuation in the cerebral white matter. There is no intr acranial hemorrhage, acute infarction, or abnormal intracranial mass lesion. There is an old infarct in the right parietal lobe. There is an old lacunar infarct in the right basal ganglia. The ventricle s are normal in size. There is mucosal thickening in the paranasal sinuses. There is dehiscence of th e anterior and posterior spence of right frontal sinus. The mastoid air cells are normal. There are li miguel changes of ocular lens replacement surgeries. IMPRESSION: 1. 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 2. Moderate nonspecific cerebral white matter disease, which likely represents chronic small vessel i schemic disease. Reviewed, dictated and finalized at location E. IMPRESSION: 1. 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 2. Moderate nonspecific cerebral white matter disease, which likely represents chronic small vessel ischemic disease.
--- NOTE | ~2024-02-08 | XR_ITS ---
XR hip BI 2V w AP pelvis 02/09/2024 08:51 Indication: Status post fall. Hip and pelvic pain Procedure: AP pelvis and 2 views each hip Comparison: No prior studies for comparison. Findings: Pelvic rings are intact. There is a side plate and screws transfixing the right acetabulum. There is also side plate and screws transfixing the right iliac crest. There is moderate osteoarthri tis of the right hip. Mild osteoarthritis of the left hip. No acute fracture is identified. Sacral fo ramen are symmetric. Impression: 1: No acute fracture. Reviewed, dictated and finalized at location A. Impression: 1: No acute fracture.
[2024-02-08 14:59] VITALS: BP 117/94; PULSE 86; RESP 16; TEMP 36.5; O2SAT 100
--- NOTE | 2024-02-08 16:22 | ECG_ITS ---
SEE SCANNED COPY FOR CONFIRMED REPORT MTDD
[2024-02-08 16:46] LABS: Basophils Absolute Auto 0.1 K/mm3 (0.0-0.1); Basophils Percent Auto 0.7 % (0.2-1.2); Eosinophils Absolute Auto 0.1 K/mm3 (0-0.3); Eosinophils Percent Auto 1.5 % (0-4.4); Hematocrit 35.3 % (42.0-52.0); Hemoglobin 12.1 g/dL (14.0-18.0); Immature Granulocyte Absolute 0.02 K/mm3 (0.00-0.031); Immature Granulocyte Percent A 0.3 % (0-0.5); Lymphocytes Absolute Auto 2.36 K/mm3 (0.9-3.2); Lymphocytes Percent Auto 31.7 % (18.3-44.2); Mean Corpuscular HGB Conc 34.3 g/dl (32-36); Mean Corpuscular Hemoglobin 32.7 pg (26-34); Mean Corpuscular Volume 95.4 fl (80-100); Mean Platelet Volume 9.3 fl (7.4-10.4); Monocytes Absolute Auto 0.6 K/mm3 (0.1-0.6); Monocytes Percent Auto 8.1 % (2.6-8.5); Neutrophils Absolute Auto 4.3 K/mm3 (1.3-6.7); Neutrophils Percent Auto 57.7 % (45.5-73.1); Platelet Count Result 206 k/mm3 (150-375); Red Cell Distribution Width 12.5 % (11.5-14.5); White Blood Count 7.4 K/mm3 (4.5-10.0)
[2024-02-08 16:50] VITALS: O2SAT 100
[2024-02-08 16:55] LABS: Alanine Aminotransferase 32 U/L (6-50); Albumin Level 3.9 g/dL (3.5-5.1); Alkaline Phosphatase 92 U/L (38-126); Anion Gap 7 mmol/L (4-12); Aspartate Amino Transferase 33 U/L (17-59); Bilirubin,Total 0.9 mg/dL (0.2-1.3); Blood Urea Nitrogen 15 mg/dL (9-20); Carbon Dioxide 22 mmol/L (22-30); Chloride 106 mmol/L (98-107); Estimated CRCL calculation 53 ml/min; Estimated Glomerular Filt Rate > 60; Glucose 76 mg/dL (65-110); Potassium 3.6 mmol/L (3.4-5.0); Sodium 135 mmol/L (137-145)
[2024-02-08 17:45] VITALS: BP 130/77; PULSE 72; RESP 17; O2SAT 98
[2024-02-08 18:17] VITALS: BP 152/86; PULSE 80; RESP 20; O2SAT 96
[2024-02-08 18:32] VITALS: PULSE 81; RESP 15; O2SAT 97
--- NOTE | 2024-02-08 18:32 | ED.WEAKNESS ---
HPI - Weakness General Chief complaint: Weakness Stated complaint: leg weakness Time Seen by Provider: 02/08/24 16:23 Source: patient and family Mode of arrival: EMS Limitations: no limitations History of Present Illness HPI Narrative: 73-year-old with a history of diabetes here with a complaint of sudden onset of lower extremity weakness. mentions that he was trying to get up from the recliner , was unable to stand as his both thigh got super weak ,lost his balance and fell on buttock , he denied any head and neck injury . mentions he had similar episode 3 wk ago and was admitted to the hospital. Complaint: focal weakness (lower ext.) and difficulty walking Onset (ago): hour(s) (1) Duration: constant Location: LLE and RLE Migration: none Severity: moderate Relieving factors: none Exacerbating factors: none Associated symptoms: denies other symptoms Related Data Home Medications Medication Instructions Recorded Confirmed bupropion HCl 150 mg tablet,12 hr 150 mg PO BID 01/16/24 01/16/24 sustained-release buspirone 10 mg tablet 10 mg PO BID 01/16/24 01/16/24 escitalopram oxalate 20 mg tablet 20 mg PO DAILY 01/16/24 01/16/24 fluticasone propionate 50 2 spray intranasal DAILY PRN 01/16/24 01/16/24 mcg/actuation nasal Congestion spray,suspension lorazepam 0.5 mg tablet 0.5 mg PO BID PRN Anxiety 01/16/24 01/16/24 omeprazole 20 mg capsule,delayed 20 mg PO DAILY 01/16/24 01/16/24 release Allergies Allergy/AdvReac Type Severity Reaction Status Date / Time No Known Allergies Allergy Unverified 11/03/18 16:21 Review of Systems Review of Systems: All systems reviewed & are unremarkable except as noted in HPI and below Eyes: Eyes: Reports no additional eye complaints ENT: Reports system reviewed and no additional complaints, except as documented Cardiovascular: Cardiovascular: Reports no additional cardiovascular complaints Respiratory: Respiratory: Reports no additional respiratory complaints Gastrointestinal: Gastrointestinal: Reports no additional gastrointestinal complaints Musculoskeletal: Musculoskeletal: Reports as per HPI Neurologic: Reports system reviewed and no additional complaints, except as documented PMFSH Past Medical History Medical History Anxiety and depression Kidney stones Skin cancer Type 2 diabetes mellitus Surgical History Surgical History H/O inguinal hernia repair (~2002) History of right hip replacement Family History Family History Father Cerebrovascular accident Acute myocardial infarction Mother No problems noted. Sibling Cerebral palsy Social History Social History (Updated 01/16/24 @ 02:51 by Africa Asher DO) Social History: Patient lives in [place] with his . Smoking status: Never smoker Alcohol intake: former Substance use: never Do You Feel Safe in your Home?: Yes Lack of Transportation: No Lack of Food: Never True Current Housing: I Have Housing Concerned About Future Housing: No Difficulty Paying Gas/Electric Bills: No Difficulty Paying for Meds: No Currently Unemployed: No Education: High School Diploma/GED Difficulty w/ Childcare or Family Care: No Living arrangements: with family Additional living arrangements comments: He lives in [place] with his . Additional occupation/education comments: He is retired from the refrigeration industry. Spiritual care concerns: No Exam Narrative: GENERAL: Well-appearing, well-nourished, and in no acute distress. HEAD: Normocephalic, atraumatic. EYES: PERRLA and EOMI. ENT: Nares clear, no rhinorrhea or epistaxis. Mucous membranes moist. NECK: Supple. CHEST: Clear to auscultation. No respiratory distress. HEART: Regular rate and rhythm. No murmur heard. Normal peripher
--- NOTE | 2024-02-08 20:05 | ADMGEN ---
This patient, Jose Manuel Escamilla, was admitted to Medical Room 241-01. Patient/family oriented to hospital policies and general routines including ID bracelet, bed and alarms, visiting hours, pain management, procedures, bathroom and other care routines, personal items, smoking policy, room service/diet, and visiting hours. Information on how to activate the Rapid Response Team has been discussed. Patient/Family are encouraged to report perceived risks to care and to ask questions if they do not understand what they are told or what they should do.
[2024-02-08 20:28] VITALS: BMI 24.4
[2024-02-08 20:30] VITALS: BP 161/65; PULSE 86; RESP 18; TEMP 36.4; O2SAT 99
[2024-02-08 20:55] LABS: Glucose Point of Care 126 mg/dl (65-105)
--- NOTE | 2024-02-08 21:56 | PM.IMHP ---
H&P: HPI History of Present Illness Date/Time: 02/08/24 22:45 Chief Complaint: Weakness and fall. Narrative: This is a 73-year-old male with insulin-dependent diabetes mellitus, gastroesophageal reflux disease, benign prostatic hyperplasia, depression, and anxiety who presented to the emergency department via EMS from home for evaluation of weakness and fall. The patient provides the following history. He was admitted to the hospital on 01/15/2024 after presenting with similar symptoms. At that time he reported that his legs were numb and he was unable to use them however that was not appreciated on exam. He had an extensive workup to include MRI of the entire spine without any significant abnormalities. Hemoglobin A1c was 11.8% and discharge provider thought that perhaps his symptoms were due to diabetic neuropathy. He was found to be retaining urine during that stay and was discharged with a Carrasco catheter in place and a prescription for tamsulosin. He was working with PT/OT and was ambulating with a walker without issue and was discharged home a few days thereafter. The last week he has once again started to feel more weak in his legs and he reports having a fall when trying to get out of the recliner, landing on his buttocks. He was unable to get up on his own or with help from his and EMS was summoned. He reports feeling just fine at the time my evaluation with his only complaint being that he feels as though he a urinate but is unable to do so. He denies vertigo, syncope, near syncope, chest and pleuritic pain, palpitations, shortness of breath, nausea, vomiting, diarrhea, and dysuria. He also denies facial droop, difficulty speaking and swallowing, and focal weakness. In the ED: No focal deficits were noted on exam and he had good power and tone in both lower extremities according to the ED physician. Attempt to ambulate the patient were unsuccessful as he felt that he was unable to bear his own weight and was afraid to fall. At this time he is being admitted for PT/OT evaluation and rehab placement. Review of Systems Review of Systems: 12 systems were reviewed and are negative except for as per HPI. [facility] Past Medical History Medical History (Updated 02/08/24 @ 22:35 by Viry Park PA-C) Anxiety and depression Benign prostatic hyperplasia Chronic anemia Insulin dependent type 2 diabetes mellitus Kidney stones Skin cancer Surgical History Surgical History (Updated 02/08/24 @ 22:34 by Viry Park PA-C) History of inguinal hernia repair History of right hip replacement Family History Family History Father Cerebrovascular accident Acute myocardial infarction Mother No problems noted. Sibling Cerebral palsy Social History Social History (Updated 02/08/24 @ 22:34 by Viry Park PA-C) Social History: Surrogate medical decision maker: Kasey Escamilla, spouse. Code status: Full code. Smoking status: Never smoker Alcohol intake: never Substance use: never Do You Feel Safe in your Home?: Yes Lack of Transportation: No Lack of Food: Never True Current Housing: I Have Housing Concerned About Future Housing: No Difficulty Paying Gas/Electric Bills: No Difficulty Paying for Meds: No Currently Unemployed: No Education: High School Diploma/GED Difficulty w/ Childcare or Family Care: No Living arrangements: with family Additional living arrangements comments: He lives in [place] with his . Additional occupation/education comments: He is retired from the refrigeration industry. Spiritual care concerns: No Meds Home Medications and Allergies Home Medications Medication Instructions Recorded Confirmed Type bupropion HCl 150 mg tablet,12 hr 150 mg PO BID 01/16/24 02/08/24 History sustained-release buspirone 10 mg tablet 10 mg PO BID 01/16/24 02/08/24 History escitalopram oxalate 2
[2024-02-08 23:13] LABS: Appearance Urine Clear (Clear); Bilirubin Urine Negative (Negative); Blood Urine Negative (Negative); Color Urine Yellow (Yellow); Glucose Urine UA Negative (Negative); Ketones Urine 1+ mg/dL (Negative); Leukocyte Esterase Ur Negative LEU/UL (Negative); Nitrate Urine Negative (Negative); Protein Urine Negative (Negative); Specific Grav Ur 1.018 (1.001-1.035); pH Urine >=9.0 (5.0-9.0)
[2024-02-08 23:19] LABS: Add Urine Microscopic? NO
[2024-02-09 03:36] VITALS: BP 132/62; PULSE 89; RESP 16; TEMP 36.4; O2SAT 99
[2024-02-09 04:32] LABS: Toxigenic C. Diff NEGATIVE (NEGATIVE)
[2024-02-09 04:37] LABS: Hemoglobin 12.2 g/dL (14.0-18.0); Mean Corpuscular Hemoglobin 32.4 pg (26-34); Mean Corpuscular Volume 98.1 fl (80-100); Mean Platelet Volume 9.7 fl (7.4-10.4); Platelet Count Result 211 k/mm3 (150-375); Red Blood Count 3.77 M/mm3 (4.6-6.20); Red Cell Distribution Width 12.4 % (11.5-14.5); White Blood Count 6.8 K/mm3 (4.5-10.0)
[2024-02-09 04:49] LABS: Anion Gap 7 mmol/L (4-12); Blood Urea Nitrogen 14 mg/dL (9-20); Calcium 8.8 mg/dL (8.4-10.2); Carbon Dioxide 22 mmol/L (22-30); Chloride 108 mmol/L (98-107); Estimated CRCL calculation 53 ml/min; Estimated Glomerular Filt Rate > 60; Glucose 119 mg/dL (65-110); Iron 83 ug/dL (49-181); Magnesium 1.8 mg/dL (1.6-2.3); Potassium 3.4 mmol/L (3.4-5.0); Sodium 137 mmol/L (137-145)
[2024-02-09 04:58] LABS: Percent Iron Saturation 40 % (20-50)
[2024-02-09 05:50] LABS: Folic Acid 14.3 ng/mL (2.76->20)
[2024-02-09 07:30] VITALS: O2SAT 99
[2024-02-09 08:04] LABS: Glucose Point of Care 109 mg/dl (65-105)
--- NOTE | 2024-02-09 08:48 | PC.NURSE ---
pt taken down for X-ray
--- NOTE | 2024-02-09 09:05 | PC.NURSE ---
pt returned to room from X-ray
[2024-02-09] MEDS: metFORMIN HCL 500 MG TABLET PO ×2 (09:23→17:31)
[2024-02-09] MEDS: ENOXAPARIN 40 MG/0.4 ML SYRINGE SUB-Q (09:24)
[2024-02-09] MEDS: busPIRone HCL 10 MG TABLET PO ×2 (09:24→17:31)
[2024-02-09] MEDS: buPROPion HCL SR (12 HR) 150 MG TAB PO ×2 (09:24→21:00)
[2024-02-09] MEDS: ESCITALOPRAM OXALATE 10 MG TABLET 20 MG PO (09:24)
[2024-02-09] MEDS: PANTOPRAZOLE 40 MG TABLET PO (09:24)
[2024-02-09] MEDS: FAMOTIDINE 20 MG TABLET PO ×3 (09:24→17:31)
[2024-02-09] MEDS: TAMSULOSIN HCL 0.4 MG CAPSULE PO (09:24)
--- NOTE | 2024-02-09 12:05 | PM.IMPN ---
Progress Note: A&P Assessment and Plan (1) Generalized weakness: Code(s): R53.1 - Weakness Status: Acute Assessment and Plan: 02/09/2024: Continue PT and OT Case Management for outpatient rehab (2) Ground-level fall: Code(s): W18.30XA - Fall on same level, unspecified, initial encounter Status: Acute Assessment and Plan: 02/09/2024: Patient reporting weakness in his legs is sustained a fall when getting out of his recliner, landing on his buttocks. Patient reports that his legs feel numb and was weak, however this was not appreciated on examination PT and OT to eval and treat (3) Gait abnormality: Code(s): R26.9 - Unspecified abnormalities of gait and mobility Status: Acute Assessment and Plan: See above (4) Insulin dependent type 2 diabetes mellitus: Code(s): E11.9 - Type 2 diabetes mellitus without complications; Z79.4 - manager terminal (current) use of insulin Status: Acute Assessment and Plan: 02/09/2024: Blood sugars ranging 93-126 Hemoglobin A1c 11.8 on 01/17/2024 Lantus 12 units subQ p.m. Moderate dose sliding scale insulin Hypoglycemic protocol in place Diabetic diet ordered (5) Chronic anemia: Code(s): D64.9 - Anemia, unspecified Status: Acute Assessment and Plan: 02/09/2024: Hemoglobin 12.2 Iron 83, total iron binding capacity 205, ferritin 172, vitamin B12 403, folate 14.3 (6) Benign prostatic hyperplasia: Code(s): N40.0 - Benign prostatic hyperplasia without lower urinary tract symptoms Status: Acute Assessment and Plan: 02/09/2024: Continue tamsulosin (7) Anxiety and depression: Code(s): F41.9 - Anxiety disorder, unspecified; F32.A - Depression, unspecified Status: Acute Assessment and Plan: 02/09/2024: Continue Lexapro, Wellbutrin, and BuSpar Time Spent With Patient Time with patient: Greater than 35 minutes Subjective Date/time seen: 02/09/24 12:05 Interval history: 01/08/24: ( copy forward from chart) The patient provides the following history. He was admitted to the hospital on 01/15/2024 after presenting with similar symptoms. At that time he reported that his legs were numb and he was unable to use them however that was not appreciated on exam. He had an extensive workup to include MRI of the entire spine without any significant abnormalities. Hemoglobin A1c was 11.8% and discharge provider thought that perhaps his symptoms were due to diabetic neuropathy. He was found to be retaining urine during that stay and was discharged with a Carrasco catheter in place and a prescription for tamsulosin. He was working with PT/OT and was ambulating with a walker without issue and was discharged home a few days thereafter. The last week he has once again started to feel more weak in his legs and he reports having a fall when trying to get out of the recliner, landing on his buttocks. He was unable to get up on his own or with help from his and EMS was summoned. He reports feeling just fine at the time my evaluation with his only complaint being that he feels as though he a urinate but is unable to do so. He denies vertigo, syncope, near syncope, chest and pleuritic pain, palpitations, shortness of breath, nausea, vomiting, diarrhea, and dysuria. He also denies facial droop, difficulty speaking and swallowing, and focal weakness. 01/09/24: This is a 73-year-old male who presented to the hospital on 02/08/2024 for evaluation after a fall and weakness. Workup in the hospital included a chest x-ray which was negative. A head CT which showed old infarcts involving the right parietal lobe and right basal ganglia, moderate nonspecific cerebral white matter disease likely representing chronic small vessel ischemic disease. Hip and pelvis x-ray was negative for fracture. Initial labs shown a hemoglobin of 12.1, sodium 135, otherwise essentially normal. UA was obtained and shown greate
[2024-02-09 12:11] LABS: Glucose Point of Care 93 mg/dl (65-105)
[2024-02-09 14:00] VITALS: BP 141/66; PULSE 89; RESP 14; TEMP 36.4; O2SAT 99
[2024-02-09 16:50] LABS: Glucose Point of Care 110 mg/dl (65-105)
[2024-02-09] MEDS: INSULIN GLARGINE (*BKC) 100 UNITS/ML 12 UNITS SUB-Q (17:32)
[2024-02-09 19:27] VITALS: BP 103/78; PULSE 82; RESP 18; TEMP 36.6; O2SAT 97
[2024-02-09 20:08] LABS: Glucose Point of Care 147 mg/dl (65-105)
[2024-02-09 21:17] VITALS: O2SAT 97
[2024-02-10 04:41] VITALS: BP 138/69; PULSE 84; RESP 16; TEMP 36.6; O2SAT 98
[2024-02-10 07:18] VITALS: O2SAT 98
[2024-02-10 08:18] LABS: Glucose Point of Care 84 mg/dl (65-105)
[2024-02-10] MEDS: TAMSULOSIN HCL 0.4 MG CAPSULE PO (08:28)
[2024-02-10] MEDS: busPIRone HCL 10 MG TABLET PO ×2 (08:28→17:41)
[2024-02-10] MEDS: ESCITALOPRAM OXALATE 10 MG TABLET 20 MG PO (08:28)
[2024-02-10] MEDS: metFORMIN HCL 500 MG TABLET PO ×2 (08:28→17:41)
[2024-02-10] MEDS: buPROPion HCL SR (12 HR) 150 MG TAB PO ×2 (08:28→20:10)
[2024-02-10] MEDS: FAMOTIDINE 20 MG TABLET PO ×3 (08:28→17:41)
[2024-02-10] MEDS: ACETAMINOPHEN 325 MG TABLET 650 MG PO (08:29)
[2024-02-10] MEDS: ENOXAPARIN 40 MG/0.4 ML SYRINGE SUB-Q (08:29)
[2024-02-10] MEDS: PANTOPRAZOLE 40 MG TABLET PO (08:29)
[2024-02-10 11:53] LABS: Glucose Point of Care 111 mg/dl (65-105)
--- NOTE | 2024-02-10 12:43 | PM.IMPN ---
Progress Note: A&P Assessment and Plan (1) Generalized weakness: Code(s): R53.1 - Weakness Status: Acute Assessment and Plan: 02/09/2024: Continue PT and OT Case Management for outpatient rehab 02/10/2024: continue PT and OT Case management following (2) Ground-level fall: Code(s): W18.30XA - Fall on same level, unspecified, initial encounter Status: Acute Assessment and Plan: 02/09/2024: Patient reporting weakness in his legs is sustained a fall when getting out of his recliner, landing on his buttocks. Patient reports that his legs feel numb and was weak, however this was not appreciated on examination PT and OT to eval and treat 02/10/2024: continue PT and OT including strength training (3) Gait abnormality: Code(s): R26.9 - Unspecified abnormalities of gait and mobility Status: Acute Assessment and Plan: See above (4) Insulin dependent type 2 diabetes mellitus: Code(s): E11.9 - Type 2 diabetes mellitus without complications; Z79.4 - termite control technician (current) use of insulin Status: Acute Assessment and Plan: 02/09/2024: Blood sugars ranging 93-126 Hemoglobin A1c 11.8 on 01/17/2024 Lantus 12 units subQ p.m. Moderate dose sliding scale insulin Hypoglycemic protocol in place Diabetic diet ordered 02/10/2024: no change to current treatment plan (5) Chronic anemia: Code(s): D64.9 - Anemia, unspecified Status: Acute Assessment and Plan: 02/09/2024: Hemoglobin 12.2 Iron 83, total iron binding capacity 205, ferritin 172, vitamin B12 403, folate 14.3 02/10/2024: no change to current treatment plan (6) Benign prostatic hyperplasia: Code(s): N40.0 - Benign prostatic hyperplasia without lower urinary tract symptoms Status: Acute Assessment and Plan: 02/09/2024: Continue tamsulosin 02/10/2024: no change to current treatment plan (7) Anxiety and depression: Code(s): F41.9 - Anxiety disorder, unspecified; F32.A - Depression, unspecified Status: Acute Assessment and Plan: 02/09/2024: Continue Lexapro, Wellbutrin, and BuSpar 02/10/2024: no change to current treatment plan Time Spent With Patient Time with patient: 15 - 25 minutes Subjective Date/time seen: 02/10/24 12:43 Interval history: 01/08/24: ( copy forward from chart) The patient provides the following history. He was admitted to the hospital on 01/15/2024 after presenting with similar symptoms. At that time he reported that his legs were numb and he was unable to use them however that was not appreciated on exam. He had an extensive workup to include MRI of the entire spine without any significant abnormalities. Hemoglobin A1c was 11.8% and discharge provider thought that perhaps his symptoms were due to diabetic neuropathy. He was found to be retaining urine during that stay and was discharged with a Carrasco catheter in place and a prescription for tamsulosin. He was working with PT/OT and was ambulating with a walker without issue and was discharged home a few days thereafter. The last week he has once again started to feel more weak in his legs and he reports having a fall when trying to get out of the recliner, landing on his buttocks. He was unable to get up on his own or with help from his and EMS was summoned. He reports feeling just fine at the time my evaluation with his only complaint being that he feels as though he a urinate but is unable to do so. He denies vertigo, syncope, near syncope, chest and pleuritic pain, palpitations, shortness of breath, nausea, vomiting, diarrhea, and dysuria. He also denies facial droop, difficulty speaking and swallowing, and focal weakness. 01/09/24: This is a 73-year-old male who presented to the hospital on 02/08/2024 for evaluation after a fall and weakness. Workup in the hospital included a chest x-ray which was negative. A head CT which showed old
[2024-02-10 13:38] LABS: Basophils Percent Auto 0.5 % (0.2-1.2); Eosinophils Absolute Auto 0.1 K/mm3 (0-0.3); Eosinophils Percent Auto 1.5 % (0-4.4); Hematocrit 42.5 % (42.0-52.0); Hemoglobin 14.1 g/dL (14.0-18.0); Immature Granulocyte Absolute 0.03 K/mm3 (0.00-0.031); Immature Granulocyte Percent A 0.4 % (0-0.5); Lymphocytes Absolute Auto 2.18 K/mm3 (0.9-3.2); Lymphocytes Percent Auto 26.9 % (18.3-44.2); Mean Corpuscular HGB Conc 33.2 g/dl (32-36); Mean Corpuscular Hemoglobin 32.8 pg (26-34); Mean Corpuscular Volume 98.8 fl (80-100); Mean Platelet Volume 9.6 fl (7.4-10.4); Monocytes Absolute Auto 0.6 K/mm3 (0.1-0.6); Monocytes Percent Auto 7.6 % (2.6-8.5); Neutrophils Absolute Auto 5.1 K/mm3 (1.3-6.7); Neutrophils Percent Auto 63.1 % (45.5-73.1); Platelet Count Result 225 k/mm3 (150-375); Red Cell Distribution Width 12.8 % (11.5-14.5); White Blood Count 8.1 K/mm3 (4.5-10.0)
[2024-02-10 13:58] LABS: Alanine Aminotransferase 30 U/L (6-50); Albumin Level 4.3 g/dL (3.5-5.1); Alkaline Phosphatase 105 U/L (38-126); Anion Gap 10 mmol/L (4-12); Aspartate Amino Transferase 29 U/L (17-59); Bilirubin,Total 0.8 mg/dL (0.2-1.3); Blood Urea Nitrogen 11 mg/dL (9-20); Calcium 9.5 mg/dL (8.4-10.2); Carbon Dioxide 17 mmol/L (22-30); Chloride 111 mmol/L (98-107); Estimated CRCL calculation 53 ml/min; Estimated Glomerular Filt Rate > 60; Glucose 150 mg/dL (65-110); Potassium 4.1 mmol/L (3.4-5.0); Sodium 138 mmol/L (137-145)
[2024-02-10 14:00] VITALS: BP 103/58; PULSE 88; RESP 16; TEMP 36.5; O2SAT 100
[2024-02-10 17:17] LABS: Glucose Point of Care 110 mg/dl (65-105)
[2024-02-10] MEDS: INSULIN GLARGINE (*BKC) 100 UNITS/ML 12 UNITS SUB-Q (17:41)
[2024-02-10 19:49] VITALS: BP 126/84; PULSE 81; RESP 18; TEMP 36.2; O2SAT 100
[2024-02-10 21:15] LABS: Glucose Point of Care 85 mg/dl (65-105)
[2024-02-11 03:46] LABS: Glucose Point of Care 71 mg/dl (65-105)
[2024-02-11 06:00] VITALS: BP 144/71; PULSE 82; RESP 18; TEMP 36.4; O2SAT 99
[2024-02-11 07:02] LABS: Glucose Point of Care 73 mg/dl (65-105)
--- NOTE | 2024-02-11 07:23 | PM.DS ---
DS: Admitting Diagnosis Discharge Date 02/11/24 Admitting Diagnosis Generalized weakness Gait abnormality Ground level fall Insulin-dependent type 2 diabetes mellitus Chronic anemia BPH Anxiety and depression DS: Discharge Diagnosis Discharge Diagnosis (1) Generalized weakness: Code(s): R53.1 - Weakness Status: Acute (2) Ground-level fall: Code(s): W18.30XA - Fall on same level, unspecified, initial encounter Status: Acute (3) Gait abnormality: Code(s): R26.9 - Unspecified abnormalities of gait and mobility Status: Acute (4) Insulin dependent type 2 diabetes mellitus: Code(s): E11.9 - Type 2 diabetes mellitus without complications; Z79.4 - ferry terminal supervisor (current) use of insulin Status: Acute (5) Chronic anemia: Code(s): D64.9 - Anemia, unspecified Status: Acute (6) Benign prostatic hyperplasia: Code(s): N40.0 - Benign prostatic hyperplasia without lower urinary tract symptoms Status: Acute (7) Anxiety and depression: Code(s): F41.9 - Anxiety disorder, unspecified; F32.A - Depression, unspecified Status: Acute DS: Summary Hospital Course Reason for hospitalization: Generalized weakness Gait abnormality Ground level fall Insulin-dependent type 2 diabetes mellitus Chronic anemia BPH Anxiety and depression Hospital Course: Interval history: 02/08/24: ( copy forward from chart) The patient provides the following history. He was admitted to the hospital on 01/15/2024 after presenting with similar symptoms. At that time he reported that his legs were numb and he was unable to use them however that was not appreciated on exam. He had an extensive workup to include MRI of the entire spine without any significant abnormalities. Hemoglobin A1c was 11.8% and discharge provider thought that perhaps his symptoms were due to diabetic neuropathy. He was found to be retaining urine during that stay and was discharged with a Carrasco catheter in place and a prescription for tamsulosin. He was working with PT/OT and was ambulating with a walker without issue and was discharged home a few days thereafter. The last week he has once again started to feel more weak in his legs and he reports having a fall when trying to get out of the recliner, landing on his buttocks. He was unable to get up on his own or with help from his and EMS was summoned. He reports feeling just fine at the time my evaluation with his only complaint being that he feels as though he a urinate but is unable to do so. He denies vertigo, syncope, near syncope, chest and pleuritic pain, palpitations, shortness of breath, nausea, vomiting, diarrhea, and dysuria. He also denies facial droop, difficulty speaking and swallowing, and focal weakness. 02/09/24: This is a 73-year-old male who presented to the hospital on 02/08/2024? for evaluation? after a fall and weakness.? Workup in the hospital included a chest x-ray which was negative.? A head CT which showed old infarcts involving the right parietal lobe and right basal ganglia, moderate nonspecific cerebral white matter disease likely representing chronic small vessel ischemic disease.? Hip and pelvis x-ray was negative for fracture.? Initial labs shown a hemoglobin of 12.1, sodium 135, otherwise essentially normal.? UA was obtained and shown greater than 9.0 urine pH, 1+ ketones, otherwise normal.? C diff was negative.? Vitamin B12 was 403, folate 14.3, TSH 1.94, ferritin 172, iron 83, total iron binding capacity 205.? EKG shown sinus rhythm with first-degree AV block, right bundle branch block, QTC 474, rate 74.? Patient was given Tylenol in the ED.? He is being admitted for PT and OT evaluation and? potential rehab placement.? Patient denies any fever, chills, nausea,vomiting, diarrhea, abdominal pain, chest pain, or shortness of breath.? He states that he has weakness in his legs mostly in the thighs and he feels this is what is contributing to his falls.
[2024-02-11 08:09] LABS: Glucose Point of Care 83 mg/dl (65-105)
[2024-02-11] MEDS: metFORMIN HCL 500 MG TABLET PO (08:13)
[2024-02-11] MEDS: FAMOTIDINE 20 MG TABLET PO ×2 (08:13→12:48)
[2024-02-11] MEDS: buPROPion HCL SR (12 HR) 150 MG TAB PO ×2 (08:14→22:09)
[2024-02-11] MEDS: busPIRone HCL 10 MG TABLET PO (08:14)
[2024-02-11] MEDS: ENOXAPARIN 40 MG/0.4 ML SYRINGE SUB-Q (08:14)
[2024-02-11] MEDS: PANTOPRAZOLE 40 MG TABLET PO (08:14)
[2024-02-11] MEDS: TAMSULOSIN HCL 0.4 MG CAPSULE PO (08:14)
[2024-02-11] MEDS: ESCITALOPRAM OXALATE 10 MG TABLET 20 MG PO (08:14)
[2024-02-11 11:54] LABS: Glucose Point of Care 83 mg/dl (65-105)
[2024-02-11 14:00] VITALS: BP 109/83; PULSE 81; RESP 18; TEMP 36.6; O2SAT 100
[2024-02-11 19:32] VITALS: BP 138/79; PULSE 86; RESP 18; TEMP 36; O2SAT 100
[2024-02-11 21:29] LABS: Glucose Point of Care 81 mg/dl (65-105)
[2024-02-12 04:26] VITALS: BP 134/71; PULSE 88; RESP 18; TEMP 35.9; O2SAT 98
[2024-02-12] MEDS: buPROPion HCL SR (12 HR) 150 MG TAB PO (08:07)
[2024-02-12] MEDS: ESCITALOPRAM OXALATE 10 MG TABLET 20 MG PO (08:07)
[2024-02-12] MEDS: busPIRone HCL 10 MG TABLET PO (08:07)
[2024-02-12] MEDS: FAMOTIDINE 20 MG TABLET PO ×2 (08:07→13:13)
[2024-02-12] MEDS: PANTOPRAZOLE 40 MG TABLET PO (08:07)
[2024-02-12] MEDS: metFORMIN HCL 500 MG TABLET PO (08:07)
[2024-02-12] MEDS: TAMSULOSIN HCL 0.4 MG CAPSULE PO (08:07)
[2024-02-12] MEDS: ENOXAPARIN 40 MG/0.4 ML SYRINGE SUB-Q (08:09)
[2024-02-12 08:10] LABS: Glucose Point of Care 122 mg/dl (65-105)
[2024-02-12 09:01] VITALS: PULSE 81; O2SAT 97
--- NOTE | 2024-02-12 09:42 | PM.DS ---
DS: Admitting Diagnosis Discharge Date 02/12/24 Admitting Diagnosis Generalized weakness Gait abnormality Ground level fall Insulin-dependent type 2 diabetes mellitus Chronic anemia BPH Anxiety and depressio DS: Discharge Diagnosis Discharge Diagnosis (1) Generalized weakness: Code(s): R53.1 - Weakness Status: Acute (2) Ground-level fall: Code(s): W18.30XA - Fall on same level, unspecified, initial encounter Status: Acute (3) Gait abnormality: Code(s): R26.9 - Unspecified abnormalities of gait and mobility Status: Acute (4) Insulin dependent type 2 diabetes mellitus: Code(s): E11.9 - Type 2 diabetes mellitus without complications; Z79.4 - halfway (current) use of insulin Status: Acute (5) Chronic anemia: Code(s): D64.9 - Anemia, unspecified Status: Acute (6) Benign prostatic hyperplasia: Code(s): N40.0 - Benign prostatic hyperplasia without lower urinary tract symptoms Status: Acute (7) Anxiety and depression: Code(s): F41.9 - Anxiety disorder, unspecified; F32.A - Depression, unspecified Status: Acute DS: Summary Hospital Course Reason for hospitalization: Generalized weakness Gait abnormality Ground level fall Insulin-dependent type 2 diabetes mellitus Chronic anemia BPH Anxiety and depressio Hospital Course: 02/08/24: ( copy forward from chart) The patient provides the following history. He was admitted to the hospital on 01/15/2024 after presenting with similar symptoms. At that time he reported that his legs were numb and he was unable to use them however that was not appreciated on exam. He had an extensive workup to include MRI of the entire spine without any significant abnormalities. Hemoglobin A1c was 11.8% and discharge provider thought that perhaps his symptoms were due to diabetic neuropathy. He was found to be retaining urine during that stay and was discharged with a Carrasco catheter in place and a prescription for tamsulosin. He was working with PT/OT and was ambulating with a walker without issue and was discharged home a few days thereafter. The last week he has once again started to feel more weak in his legs and he reports having a fall when trying to get out of the recliner, landing on his buttocks. He was unable to get up on his own or with help from his and EMS was summoned. He reports feeling just fine at the time my evaluation with his only complaint being that he feels as though he a urinate but is unable to do so. He denies vertigo, syncope, near syncope, chest and pleuritic pain, palpitations, shortness of breath, nausea, vomiting, diarrhea, and dysuria. He also denies facial droop, difficulty speaking and swallowing, and focal weakness. 02/09/24: This is a 73-year-old male who presented to the hospital on 02/08/2024? for evaluation? after a fall and weakness.? Workup in the hospital included a chest x-ray which was negative.? A head CT which showed old infarcts involving the right parietal lobe and right basal ganglia, moderate nonspecific cerebral white matter disease likely representing chronic small vessel ischemic disease.? Hip and pelvis x-ray was negative for fracture.? Initial labs shown a hemoglobin of 12.1, sodium 135, otherwise essentially normal.? UA was obtained and shown greater than 9.0 urine pH, 1+ ketones, otherwise normal.? C diff was negative.? Vitamin B12 was 403, folate 14.3, TSH 1.94, ferritin 172, iron 83, total iron binding capacity 205.? EKG shown sinus rhythm with first-degree AV block, right bundle branch block, QTC 474, rate 74.? Patient was given Tylenol in the ED.? He is being admitted for PT and OT evaluation and? potential rehab placement.? Patient denies any fever, chills, nausea,vomiting, diarrhea, abdominal pain, chest pain, or shortness of breath.? He states that he has weakness in his legs mostly in the thighs and he feels this is what is contributing to his falls. 02/10/24: ?Patient tiana
[2024-02-12 12:03] LABS: Glucose Point of Care 150 mg/dl (65-105)
[2024-02-12 14:00] VITALS: BP 128/69; PULSE 86; RESP 16; TEMP 36.6; O2SAT 100
[2024-02-12 17:11] LABS: Glucose Point of Care 116 mg/dl (65-105)
== END 2024-02-12 17:30 | disposition home or self-care (01) ==
LOC: ANHED 18:39 → ANH2MED 02-09 11:58
PROVIDERS: Emergency Medicine; Internal Medicine; Nurse Practitioner Acute Care; Physician Assistant; Admitting Provider Hospitalist; Emergency Provider Family Medicine; PCP Emergency Medicine; Visit Provider Internal Medicine
DX: R53.1 Weakness (principal); W18.30XA Fall on same level, unspecified, initial encounter; R26.9 Unspecified abnormalities of gait and mobility; Z99.89 Dependence on other enabling machines and devices; E11.9 Type 2 diabetes mellitus without complications; R33.9 Retention of urine, unspecified; D64.9 Anemia, unspecified; R90.82 White matter disease, unspecified; N40.0 Benign prostatic hyperplasia without lower urinary tract symptoms; F41.9 Anxiety disorder, unspecified; F32.A Depression, unspecified; K21.9 Gastro-esophageal reflux disease without esophagitis; M16.0 Bilateral primary osteoarthritis of hip; Z96.641 Presence of right artificial hip joint; Z86.73 Personal history of transient ischemic attack (TIA), and cerebral infarction without residual deficits; Z79.4 Long term (current) use of insulin; Z79.84 Long term (current) use of oral hypoglycemic drugs; Z79.899 Other long term (current) drug therapy
CPT/HCPCS: 36415; 70450; 71046; 73521; 80048; 80053; 81003; 82607; 82728; 82746; 82948; 83540; 83550; 83735; 84443; 85025; 85027; 87493; 93005; 96372; 97110; 97161; 97165; 97530; 97535; 99285; A9270; G0378; J1650; J1815

== ENCOUNTER 2024-04-22 14:45 | Outpatient (RCR) | payer MEDICARE, SELFPAY ==
[2024-04-10 13:25] VITALS: BMI 24.1
[2024-04-10 13:33] VITALS: BMI 24.1
[2024-04-22 14:50] VITALS: BMI 23.3
== END 2024-07-04 08:50 | disposition home or self-care (01) ==
LOC: ANHDMC 14:45
PROVIDERS: PCP Emergency Medicine; Visit Provider Emergency Medicine
DX: E11.69 Type 2 diabetes mellitus with other specified complication (principal); Z71.3 Dietary counseling and surveillance
CPT/HCPCS: 97802; 97803

== ENCOUNTER 2024-12-10 21:34 | Observation (INO) | payer MEDICARE, SELFPAY ==
--- NOTE | ~2024-12-10 | XR_ITS ---
EXAMINATION: XR chest 2V DATE: 12/10/2024 22:06 INDICATION: Cough. TECHNIQUE: Frontal and lateral views of the chest were obtained. COMPARISON: Chest 2 views 02/08/2024 FINDINGS: There is no pneumonia, pleural effusion, or pneumothorax. The heart size is normal. IMPRESSION: 1. No acute cardiopulmonary disease. Reviewed, dictated and finalized at location A. [facility]
--- NOTE | ~2024-12-10 | CT_ITS ---
EXAMINATION: CT brain wo con DATE: 12/10/2024 22:03 INDICATION: Altered mental status. TECHNIQUE: Computed tomography (CT) of the head was performed without intravenous contrast. The mA wa s adjusted according to patient size. Iterative reconstruction technique was employed. The dose-lengt h product was 681.00 mGy-cm. COMPARISON: Head CT 02/08/2024 FINDINGS: There are scattered areas of low attenuation in the cerebral white matter. There are old in farcts in the right basal ganglia and right parietal lobe. There is no intracranial hemorrhage, acute infarction, or abnormal intracranial mass lesion. The ventricles are normal in size. There are likel y changes of ocular lens replacement surgeries. There is mucosal thickening in the paranasal sinuses. There is dehiscence of anterior wall of right frontal sinus. There is a trace left mastoid effusion. IMPRESSION: 1. 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 2. Stable moderate nonspecific cerebral white matter disease, which likely represents chronic small v essel ischemic disease. Reviewed, dictated and finalized at location A. OR INFORMATION SECURITY ARCHITECT IMPRESSION: 1. 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 2. Stable moderate nonspecific cerebral white matter disease, which likely repr esents chronic small vessel ischemic disease.
[2024-12-10 21:35] VITALS: BP 159/86; PULSE 118; RESP 18; TEMP 37; O2SAT 100
--- NOTE | 2024-12-10 21:39 | ED_ITS ---
HPI - Weakness General Chief complaint: Weakness Stated complaint: Generalized weakness Source: patient and family Mode of arrival: EMS Limitations: altered mental status and dementia History of Present Illness HPI Narrative: This is a 74-year-old male with PMH of insulin-dependent diabetes, BPH, gait abnormality, chronic anemia who presents to the ED via EMS for generalized weakness and altered mental status beginning earlier this morning. Patient's is bedside who is supplementing history. Patient has no current complaints although history for the patient is quite limited due to history of dementia and potentially current altered mental status. His states that yesterday patient was feeling fine. She does note that he has had a bit of a cough the last couple of days but nothing severe. He has had no other complaints the last couple of days. States that this morning he seemed more generally weak and had an episode where his ?legs gave out and he almost fell. She states that this is happened a couple of times in the past with his legs giving out and they were told that he has nerve impingement in his back. She states that his morning fasting blood sugars have been a little high in the 170s to 200s. Denies any low blood sugars. She states that he has not made any complaints such as numbness, weakness, chest pain, abdominal pain, nausea, vomiting, diarrhea or had any fevers at home. She does feel that he is a little ?off and not acting his normal self with last known well being last night before bed around 10:00 p.m. States that he has a little bit of memory issues but has been increasingly confused with things like simple tasks. His states that it is fairly normal for him to not know the time or date and to be confused about location. What is new is that he is more confused with the daily tasks and simple questions. Related Data Home Medications ?Medication ?Instructions ?Recorded ?Confirmed ?Last Taken ?Type bupropion HCl 150 mg tablet,12 hr 150 mg PO BID 01/16/24 02/08/24 Unknown History sustained-release buspirone 10 mg tablet 10 mg PO BID 01/16/24 02/08/24 Unknown History escitalopram oxalate 20 mg tablet 20 mg PO DAILY 01/16/24 02/08/24 Unknown History fluticasone propionate 50 2 spray intranasal DAILY PRN 01/16/24 02/08/24 Unknown History mcg/actuation nasal Congestion spray,suspension lorazepam 0.5 mg tablet 0.5 mg PO BID PRN Anxiety 01/16/24 02/08/24 Unknown History omeprazole 20 mg capsule,delayed 20 mg PO DAILY 01/16/24 02/08/24 Unknown History release dicyclomine 20 mg tablet 20 mg PO QID 02/08/24 02/08/24 Unknown History famotidine 20 mg tablet 20 mg PO TID 02/08/24 02/08/24 Unknown History Allergies Allergy/AdvReac Type Severity Reaction Status Date / Time No Known Allergies Allergy Verified 02/08/24 20:26 Review of Systems 2 Review of Systems: All systems as dictated in [facility] Past Medical History Medical History (Updated 12/10/24 @ 23:38 by Barry Trinh PA-C) Chronic anemia Benign prostatic hyperplasia Insulin dependent type 2 diabetes mellitus Skin cancer Kidney stones Anxiety and depression Surgical History Surgical History (Updated 02/08/24 @ 22:34 by Viry Park PA-C) History of inguinal hernia repair History of right hip replacement Family History Family History Father Cerebrovascular accident Acute myocardial infarction Mother No problems noted. Sibling Cerebral palsy Social History Social History (Updated 02/08/24 @ 22:34 by Viry Park PA-C) Social History: Surrogate medical decision maker: Kasey Escamilla, spouse. Code status: Full code. Smoking status: Never smoker Alcohol intake: never Substance use: never Do You Feel Safe in your Home?: Yes Lack of Transportation: No Lack of Food: Never True Current Housing: I Have Housing Concerned About Future Housing: No Difficulty Paying Gas/Electric Bills: No Difficulty Paying for Meds: No Currently Unemployed: No Education: High School Diploma/GED Difficulty w/ Childcare or Family Care: No Living arrangements: with family Additional living arrangements comments: He lives in [place] with his . Additional occupation/education comments: He is retired from the refrigeration industry. Spiritual care concerns: No Exam 2 Narrative: GENERAL: Appears elderly and frail. HEAD: Normocephalic, atraumatic. EYES: PERRLA and EOMI. ENT: Nares clear, no rhinorrhea or epistaxis. Mucous membranes dry. Oropharynx without tonsillar hypertrophy exudate or other lesions. NECK: Supple. No adenopathy or masses. CHEST: No respiratory distress. Questionable adventitious breath sounds heard in the bilateral bases. 100% on room air. HEART: Tachycardic rate.. Systolic murmur appreciated. Normal peripheral pulses. ABDOMEN: Soft, nontender, nondistended, normal active bowel sounds. Negative flank tenderness. MSK: Normal range of motion. No edema. SKIN: Warm, dry, no rash. NEURO: Alert and oriented x2-3. He can tell me his full name and that he is in a hospital but is unsure which. He does not know the time and is unsure of situation. No focal deficits. Negative pronator drift to the upper and lower extremities. No facial droop. No dysarthria. PSYCH: Normal mood and affect. Course Vital Signs Vital signs: Vital Signs Temperature 98.6 F 12/10/24 21:35 Pulse Rate 118 H 12/10/24 21:35 Respiratory Rate 18 12/10/24 21:35 Blood Pressure 159/86 H 12/10/24 21:35 Pulse Oximetry 100 12/10/24 21:35 Oxygen Delivery Room Air 12/10/24 21:35 Temperature 98.6 F 12/10/24 21:35 Pulse Rate 117 H 12/10/24 23:25 Respiratory Rate 18 12/10/24 22:32 Blood Pressure 139/89 12/10/24 22:32 Pulse Oximetry 97 12/10/24 22:06 Oxygen Delivery Room Air 12/10/24 21:55 MDM - Weakness MDM Narrative Medical decision making narrative: This is a 74-year-old male who presents to the ED via EMS for chief complaint of generalized weakness and confusion. He arrives with a tachycardic heart rate showing an atrial flutter 2-1. Pressures are stable in vitals are otherwise normal. Saturating well on room air. Lab work shows normal white count. Due to the initial tachycardia and complaint of confusion, patient was started on sepsis bolus fluids. CMP unremarkable overall. Urinalysis shows 1+ ketones but no evidence of infection. He does appear dry on exam. Viral swabs positive for COVID. Chest x-ray negative for acute findings. Head CT is also negative for acute findings but does show old infarcts. There is minimal to no evidence of acute stroke on his physical exam today. He seems to be at his normal mental status according to his who is bedside. Patient was given diltiazem 10 mg push which did provide some success so diltiazem drip was started. Patient has a steady heart rate around 105 and steady pressures. His chads Vasc is elevated so we will start on 40 mg Lovenox daily prophylaxis. After discussed the case with hospitalist PLATE GLASS INSTALLER HELPER, he will be admitted to IMU. KRYSTINA?DS?-VASc Score for Atrial Fibrillation Stroke Risk from [employer] on 12/11/2024 All calculations should be rechecked by clinician prior to use RESULT SUMMARY: 3 points Stroke risk was 3.2% per year in >90,000 patients (the [place] Atrial Fibrillation Cohort Study) and 4.6% risk of stroke/TIA/systemic embolism. INPUTS: Age ?> 2 = >=5 Sex ?> 0 = Male CHF history ?> 0 = No Hypertension history ?> 0 = No Stroke/TIA/thromboembolism history ?> 0 = No Vascular disease history (prior [place], peripheral artery disease, or aortic plaque) ?> 0 = No Diabetes history ?> 1 = Yes Lab Data 12/10/24 22:22 12/10/24 22:22 Labs: Lab Results 12/10/24 12/10/24 12/10/24 Range/Units 22:17 22:22 22:51 WBC 9.4 (4.5-10.0) K/mm3 RBC 4.07 L (4.6-6.20) M/mm3 Hgb 13.6 L (14.0-18.0) g/dL Hct 39.4 L (42.0-52.0) % MCV 96.8 (80-100) fl MCH 33.4 (26-34) pg MCHC 34.5 (32-36) g/dl RDW 12.5 (11.5-14.5) % Plt Count 199 (150-375) k/mm3 MPV 9.6 (7.4-10.4) fl Immature Gran % (Auto) 0.3 (0-0.5) % Neut % (Auto) 85.9 H (45.5-73.1) % Lymph % (Auto) 5.3 L (18.3-44.2) % [place] % (Auto) 8.1 (2.6-8.5) % Eos % (Auto) 0.1 (0-4.4) % Baso % (Auto) 0.3 (0.2-1.2) % Lymph # (Auto) 0.50 L (0.9-3.2) K/mm3 [place] # (Auto) 0.8 H (0.1-0.6) K/mm3 Eos # (Auto) 0.0 (0-0.3) K/mm3 Baso # (Auto) 0.0 (0.0-0.1) K/mm3 Abs Immat Gran (auto) 0.03 (0.00-0.031) K/mm3 Absolute Neuts (auto) 8.0 H (1.3-6.7) K/mm3 Absolute Nucleated RBC 0.000 (0.0-0.012) K/mm3 Nucleated RBC % 0.0 (0.0-0.2) % PT 14.8 H (11.1-14.7) Seconds INR 1.1 APTT 33.0 (22.3-36.8) Seconds Sodium 133 L (137-145) mmol/L Potassium 4.1 (3.4-5.0) mmol/L Chloride 97 L (98-107) mmol/L Carbon Dioxide 27 (22-30) mmol/L Anion Gap 9 (4-12) mmol/L BUN 16 (9-20) mg/dL Creatinine 0.80 (0.7-1.3) mg/dL Estim Creat Clear Calc 67 ml/min Estimated GFR > 60 (59 - ) Glucose 175 H (65-110) mg/dL Lactic Acid 0.9 (0.7-2.0) mmol/L Calcium 9.4 (8.4-10.2) mg/dL Total Bilirubin 0.8 (0.2-1.3) mg/dL AST 70 H (17-59) U/L ALT 87 H (6-50) U/L Alkaline Phosphatase 147 H (38-126) U/L Total Creatine Kinase 110 (55-170) U/L Troponin I < 0.012 (0.000-0.034) ng/mL C-Reactive Protein 6.1 H (<1.0) mg/dL NT-Pro-B Natriuret Pep 287 H (19.9-100) pg/mL Total Protein 7.0 (6.3-8.2) g/dL Albumin 4.2 (3.5-5.1) g/dL Lipase 77 (23-300) U/L Urine Color Yellow (Yellow) Urine Appearance Turbid H (Clear) Urine pH 8.0 (5.0-9.0) Ur Specific [place] 1.016 (1.001-1.035) Urine Protein Trace (Negative) mg/dL Urine Glucose (UA) Negative (Negative) mg/dL Urine Ketones 1+ H (Negative) mg/dL Ur Blood (Man) Negative (Negative) Urine Nitrate Negative (Negative) Urine Bilirubin Negative (Negative) Urine Urobilinogen 1.0 (<2.0) mg/dL Leukocyte Esterase Rfl Negative (Negative) [place]/UL Urine RBC 0-2 (0-2) /hpf Urine WBC 0-5 (0-3) /hpf Ur Squamous Epith Cells None seen (Few) /hpf Urine Bacteria None seen /hpf Urine Casts 0-2 Influenza A (RT-PCR) Negative (Negative) Influenza B (RT-PCR) Negative (Negative) RSV (RT-PCR) Negative (Negative) SARS-CoV-2 RNA (RT-PCR) Positive A (Negative) Discharge Plan Discharge Clinical Impression: COVID-19, Atrial flutter Patient Disposition: Still a Patient Condition: Stable Patient Language: [place] Prescriptions: No Action bupropion HCl 150 mg tablet sustained-release 12 hr 150 mg PO BID lorazepam 0.5 mg tablet 0.5 mg PO BID PRN (Reason: Anxiety) buspirone 10 mg tablet 10 mg PO BID omeprazole 20 mg capsule,delayed release(DR/EC) 20 mg PO DAILY fluticasone propionate 50 mcg/actuation spray,suspension 2 spray INTRANASAL DAILY PRN (Reason: Congestion) escitalopram oxalate 20 mg tablet 20 mg PO DAILY tamsulosin 0.4 mg Capsule 0.4 mg PO QAM Qty: 30 0RF pantoprazole 40 mg Tablet,Delayed Release (Dr/Ec) 40 mg PO DAILY Qty: 30 0RF ondansetron 4 mg Tablet,Disintegrating 4 mg PO Q6H PRN (Reason: Nausea And Vomiting) Qty: 30 0RF insulin glargine [Lantus Solostar U-100 Insulin] 100 unit/mL (3 mL) insulin pen 12 unit subcut QPM Qty: 15 0RF metformin 500 mg tablet 500 mg PO BID Qty: 60 0RF famotidine 20 mg tablet 20 mg PO TID dicyclomine 20 mg tablet 20 mg PO QID Follow-up/Referrals: Dangelo,Suzan Larson MD [Primary Care Provider] -
--- NOTE | 2024-12-10 21:40 | ECG_ITS ---
Test Date: 2024-12-10 21:42:41 Measurements Intervals [place] Rate: 118 P: 0 UT: 0 QRS: 50 QRSD: 122 T: 52 QT: 313 QTc: 440 Interpretive Statements ATRIAL FLUTTER/TACHYCARDIA WITH RAPID VENTRICULAR RESPONSE WITH ABERRANT CONDUCTION OR VENTRICULAR PREMATURE COMPLEXES RIGHT BUNDLE BRANCH BLOCK BASELINE ARTIFACT- I, II, III, AVR, AVL, AVF, V4 ABNORMAL ECG No previous ECG available for comparison Electronically Signed On 12-11-2024 06:01:27 FACILITIES ENGINEERING MANAGER by Gray Perez D.O.
--- OUTSIDE RECORDS SUMMARY | 2024-12-10 21:48 | XMS_ITS | Referral Summary ---
Author Organization [facility] [employer] Address [address] [place] [address] Care Team Providers Care Outpatient Coding Specialist Name Role Phone Gemma Tijerina MD Primary Care Provider [phone] Allergies No known active allergies Medications buPROPion SR (WELLBUTRIN SR) 150 mg 12 hr tablet Take 1 tablet (150 mg total) by mouth 3 Active escitalopram (LEXAPRO) 20 mg tablet Take 1 tablet (20 mg total) by mouth daily 3 Active cetirizine (ZyrTEC) 10 mg tabletIndicatio ns:Chronic serous otitis media, left ear Take 1 tablet (10 mg total) by mouth daily 30 tablet 1 3 Active fluticasone propionate (FLONASE) 50 mcg/actuation nasal sprayIndication s:Chronic serous otitis media, left ear Administer 2 sprays into each nostril daily 1 each 2 3 Active baclofen (LIORESAL) 10 mg tablet baclofen 10 mg tablet TAKE ONE TABLET BY MOUTH THREE TIMES DAILY NEEDED Active ibuprofen (ADVIL,MOTRIN) 800 mg tablet ibuprofen 800 mg tablet TAKE ONE TABLET BY MOUTH THREE TIMES DAILY WITH FOOD Active LORazepam (ATIVAN) 0.5 mg tablet Take by mouth 2 (two) times a day before breakfast and dinner Active tiZANidine (ZANAFLEX) 4 mg tablet tizanidine 4 mg tablet TAKE ONE TABLET BY MOUTH TWICE DAILY NEEDED Active traMADoL (ULTRAM) 50 mg tablet 3 Active aspirin 81 mg enteric coated tablet Take 1 tablet (81 mg total) by mouth daily Active metFORMIN (FORTAMET) 500 mg 24 hr tablet Take 2 tablets (1,000 mg total) by mouth nightly Active insulin glargine 100 unit/mL vial for injection Inject 16 Units under the skin nightly Active Active Problems Problem Noted Date Diagnosed Date Abnormal computed tomography angiography (CTA) 0 07/03/2024 Mixed conductive and sensori neural hearing loss of both ears 04/03/2023 Impacted cerumen of right ear 04/03/2023 Perforation of right tympanic membrane Chronic serous otitis media, left ear 04/03/2023 Social History Tobacco Use Types Packs/Day Years Used Date Smoking Tobacco: Never Smokeless Tobacco: Never Tobacco Cessation:Counseling Given: Not Answered AUDIT-C Answer Date Recorded Q1: How often do you have a drink containing alcohol? Never 07/09/2024 Q2: How many drinks containi ng alcohol do you have on a typical day when you are drinking? Patient does not drink Q3: How often do you have si x or more drinks on one occasion? Never 07/09/2024 Personal Safety Answer Date Recorded Have you ever been in or are you currently in a harmful physical or emotional relationship or is someone making you feel afraid or unsafe? 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 Gender Identity Not on file Sexual Orientation Not on file Last Filed Vital Signs Vital Sign Reading Time Taken Comments Blood Pressure 128/87 07/09/2024 2:00 PM CDT Pulse 84 07/09/2024 2:00 PM CDT Temperature - - Respiratory Rate 17 07/09/2024 2:00 PM CDT Oxygen Saturation 99% 07/09/2024 2:00 PM CDT Inhaled Oxygen Concentration - - Weight 77.6 kg (171 lb) 05/09/2023 4:00 PM CDT Height 170.2 cm (5' 7 ) 05/09/2023 4:00 PM CDT Body Mass Index 26.78 05/09/2023 4:00 PM CDT Plan of Treatment Not on file Procedures Procedure Name Priority Date/Time Associated Diagnosis Comments EGFR STAT 07/09/2024 9:18 AM CDT from Last 3 Months or Most Recently Relevant to Health Maintenance Results * eGFR (07/09/2024 9:18 AM CDT) eGFR 89 >=60 mL/min/1. 73 m2 Comment: Interpretive Data Reference Interval Normal >/= 90 mL/min/1.73m2 Mildly decreased* 60 - 89 mL/min/1.73m2 Mildly to moderately decreased 45 - 59 mL/min/1.73m2 Moderately to severely decreased 30 - 44 mL/min/1.73m2 Severely decreased 15 - 29 mL/min/1.73m2 Kidney Failure < 15 mL/min/1.73m2 *Relative to young adult level Estimated glomerular filtration rate is determined by the 2020 CKD-EPI equation recommended by the National Kidney Foundation (A Unifying Approach to GFR Estimation: Recommendations of the NKF-ASK Task Force on Reassessing the Inclusion of Race in Diagnosing Kidney Disease, JASN 2020). The CKD-EPI equation should not be used for patients with unstable renal function and has not been validated in children and those over 70. Current interpretive data was last reviewed 2021. Testing performed by: [facility], [address] [place] [address]., [id number] Blood 07/09/2024 9:18 AM CDT 07/09/2024 9:21 AM CDT Johnathan Jones MD LAB BLOOD ORDERABLES Trisha frank Result [place] [id number] [facility] [place] [address] from Last 3 Months or Most Recently Relevant to Health [place] [address] [place] [address] [employer] G[employer] Care Teams Outpatient Coding Specialist Relationship Specialty Start Date End Date Gemma Tijerina MD [address] [place], [place] [address] [address] PCP - General Internal Medicine 02/28/23
--- OUTSIDE RECORDS SUMMARY | 2024-12-10 21:48 | XMS_ITS | Clinical Summary ---
Author Organization [facility] [employer] Address [address] [place] [address] Care Team Providers Care Water Sander Name Role Phone Suzan Pierson MD Primary Care Provider [phone] Source Comments [facility] [employer],non-owned Affiliates and Associated Physician Practices is amultiple site organization consisting of ambulatory clinics and hospital sitesin [place], [place], [place] and [place]. This disclosure is being madepursuant to the Care Everywhere program and may not contain all information available regarding this patient. Last updated 18.[employer] Allergies No known active allergies Medications * Be aware that medications may not be up to date on this document. Alwaysverify current medications with the patient. Medication Sig Dispensed Refills Start Date End Date Status acetaminophen-codei ne (Tylenol #3) 300-30 MG tablet Take 1 (one) tablet by mouth every 8 hours as needed Active ibuprofen (Motrin) 800 MG tablet Take 1 (one) tablet by mouth once daily as needed Active busPIRone (Buspar) 10 MG tablet TAKE ONE TABLET BY MOUTH TWICE DAILY AFTER MEALS Active escitalopram (Lexapro) 10 MG tablet Take 1 (one) tablet by mouth every morning Active gabapentin (Neurontin) 100 MG capsule TAKE ONE CAPSULE BY MOUTH TWICE DAILY WITH MEALS FOR PAIN MANAGEMENT 04/29/2024 Active OneTouch Ultra test strip USE TO CHECK BLOOD SUGAR THREE TIMES DAILY 05/20/2024 Active Lantus SoloStar pen INJECT 12 UNITS UNDER THE SKIN EVERY EVENING Active metFORMIN ER 24hr (Glucophage XR) 500 MG tablet Take 2 (two) tablets by mouth daily with dinner 180 tablet 11 06/04/2024 Active Social History Tobacco Use Types Packs/Day Years Used Date Smoking Tobacco: Never Assessed Sex and Gender Information Value Date Recorded Sex Assigned at Not on file Gender Identity Not on file Sexual Orientation Not on file Last Filed Vital Signs Vital Sign Reading Time Taken Comments Blood Pressure 131/81 06/04/2024 2:00 PM CDT Pulse 81 06/04/2024 2:00 PM CDT Temperature - - Respiratory Rate - - Oxygen Saturation 99% 06/04/2024 2:00 PM CDT Inhaled Oxygen Concentration - - Weight 67.1 kg (148 lb) 06/04/2024 2:00 PM CDT Height - - Body Mass Index - - Plan of Treatment Health Maintenance Due Date Last Done Comments HEPATITIS C SCREENING 09/27/1966 DTAP/TDAP/TD VACCINES (1 - Tdap) 1967 PNEUMOCOCCAL VACCINE 50+ (1 of 2 - PCV) 1967 ZOSTER VACCINE (1 of 2) 1998 Respiratory Syncytial Virus (RSV) Vaccine Pt: or over 60 yrs (1 - 1-dose 75+ series) 2023 COVID-19 VACCINE ( - 2023-2 5 season) 2024 INFLUENZA VACCINE (#1) 2024 DEPRESSION SCREENING 10/22/2024 MEDICARE AWV CALENDAR YEAR 2024 HEPATITIS B VACCINE Aged Out No longe r eligible based on patient's age to complete this topic HIB VACCINE Aged Out No longer eligi ble based on patient's age to complete this topic HPV VACCINE Aged Out No longer eligi ble based on patient's age to complete this topic MENINGOCOCCAL (Group B) VACCINE Aged Out No longer eligible based on patient's age to complete this topic MENINGOCOCCAL VACCINE Aged Out No vita dale eligible based on patient's age to complete this topic Care Teams Water Sander Relationship Specialty Start Date End Date Suzan Pierson MD [address] [place] [address] PCP - General Emergency Medicine 02/07/24
--- OUTSIDE RECORDS SUMMARY | 2024-12-10 21:48 | XMS_ITS | Referral Summary ---
Author Organization [facility] [employer] Address [address] [place] [address] Care Team Providers Care Sawmill Or Timber Yard Worker Name Role Phone Suzan Pierson MD Primary Care Provider [phone] Source Comments [facility] [employer],non-owned Affiliates and Associated Physician Practices is amultiple site organization consisting of ambulatory clinics and hospital sitesin [place], [place], [place] and [place]. This disclosure is being madepursuant to the Care Everywhere program and may not contain all information available regarding this patient. Last updated 18.[facility] Allergies No known active allergies Medications * [...] Mass Index - - Plan of Treatment Not on file Care Teams Sawmill Or Timber Yard Worker Relationship Specialty Start Date End Date Suzan Pierson MD [address] [place] [address] PCP - General Emergency Medicine 02/07/24
--- OUTSIDE RECORDS SUMMARY | 2024-12-10 21:48 | XMS_ITS | Encounter Summary ---
Author Organization [facility] Address [address] [address] Care Team Providers Care Dental Services Director Name Role Phone Suzan Pierson MD Primary Care Provider Encounter Details Date Type Department Care Team (Late st Contact Info) Description 04/03/2023 Lab Requisition [facility] - DermPath Lab [address] [place] [phone] Robert Albarran DO [address] [phone] Social History Tobacco Use Types Packs/Day Years Used Date Smoking Tobacco: Never Assessed Sex and Gender Information Value Date Recorded Sex Assigned at Not on file Gender Identity Not on file Sexual Orientation Not on file documented as of this encounter Plan of Treatment Not on file documented as of this encounter Procedures Procedure Name Priority Date/Time Associated Diagnosis Comments DERMATOPATHOLOGY Routine 03/30/2023 3:33 AM CDT documented in this encounter Results * DERMATOPATHOLOGY (03/30/2023 3:33 AM CDT) Case Report Dermatopathology Report Case: [id number] Authorizing Provider: Robert Albarran DO Collected: 03/30/2023 03:33 AM Ordering Location: [facility] DermPath Lab Received: 04/03/2023 09:30 AM Pathologist: Makayla Mendoza MD Specimen: Skin, right dorsal hand 6:16 PM CDT DERMATOPATHOLOGY LABORATORY Final Diagnosis Specimen A. SKIN, right dorsal hand: HYPERPLASTIC (HYPERTROPHIC) ACTINIC KERATOSIS; EXTENDING TO THE BASE OF THE SPECIMEN (L57.0) (see microscopic description and comment) 3 6:16 PM T DERMATOPATHOLOGY LABORATORY Clinical History Poss. BCC 3 6:16 PM CDT DERMATOPATHOLOGY LABORATORY Gross Description Specimen A: Received is one formalin filled container labeled with the patient's name and designated right dorsal hand. The specimen consists of a shave biopsy measuring [id number]. Jar 0. 3 6:16 PM T DERMATOPATHOLOGY LABORATORY Microscopic Description Specimen A. SKIN, right dorsal hand: There is hyperkeratosis alternating with parakeratosis. There is epidermal hyperplasia with disorderly maturation of keratinocytes with nuclear pleomorphism confined to the lower half of the epidermis. This process extends to the base of the specimen. Additional deeper sections were obtained and reviewed. COMMENT: A squamous cell carcinoma cannot be ruled out. 3 6:16 PM T DERMATOPATHOLOGY LABORATORY Disclaimer An external and internal positive and negative controls are appropriate for the histochemical, immunohistochemical and immunofluorescence stain(s) in this case (if any), except where stated explicitly. The performance characteristics of the stain(s) cited in this report were developed and its performance characteristic determined by the Dermatopathology Laboratory at [facility], directed by Dr. Neo Mauricio. These tests need not be, and therefore are not, approved by the [place] Food and Drug Administration. The tests are used for clinical purposes. Billing Codes Specimen Charges Stain Charges 77927 1 3 6:16 PM CDT DERMATOPATHOLOGY LABORATORY Embedded Images 3 6:16 PM CDT DERMATOPATHOLOGY LABORATORY Pathology/Cytolo gy TISSUE SPECIMEN FROM SKIN / Unknown 03/30/2023 3:33 AM CDT 04/03/2023 9:30 AM CDT Robert Albarran DO LAB - PATHOLOGY/CYTO LOGY ORDERABLES DERMATOPATHOLOGY LABORATORY [facility] - Department of Dermatology [address], [address] [phone] documented in this encounter Visit Diagnoses Not on filedocumented in this encounter Care Teams Dental Services Director Relationship Specialty Start Date End Date Suzan Pierson MD [address] [place] [phone] PCP - General Emergency Medicine 02/07/24 documented as of this encounter
--- OUTSIDE RECORDS SUMMARY | 2024-12-10 21:48 | XMS_ITS | Encounter Summary ---
Author Organization [facility] Address [address] [address] Care Team Providers Care [employer] Director Name Role Phone Suzan Pierson MD Primary Care Provider [phone] Encounter Details Date Type Department Care Team (Late st Contact Info) Description 04/03/2023 Lab Requisition [facility] - DermPath Lab [address] [place] [id number] Social History Tobacco Use Types Packs/Day Years Used Date Smoking Tobacco: Never Assessed Sex and Gender Information Value Date Recorded Sex Assigned at Not on file Gender Identity Not on file Sexual Orientation Not on file documented as of this encounter Plan of Treatment Not on file documented as of this encounter Visit Diagnoses Not on filedocumented in this encounter Care Teams High [employer] Music Director Relationship Specialty Start Date End Date Suzan Pierson MD [address] [place] [phone] PCP - General Emergency Medicine 02/07/24 documented as of this encounter
--- OUTSIDE RECORDS SUMMARY | 2024-12-10 21:48 | XMS_ITS | Data Portability ---
Author Organization [place] [facility] [employer], Main Office Address [address] [place] [address] Care Team Providers Care Project Account Manager Name Role Phone GILDA BURNHAM Primary Care Provider Assessment Encounter Date Assessment Date Assessment LastModified by Organization Details LastModified Time 03/19/2024 03/19/2024 This note is dictated and transcribed by [employer]. Business Broker variances may occur. Despite proofreading, typographical errors may occur. Occasional wrong-word or 'jqrvl-y-pscn' substitutions may have occurred due to the inherent limitations of voice recording. Read the chart carefully and recognize, using context, where substitutions have occurred. Not available 03/19/2024 12:38:49 04/15/2024 04/15/2024 This note is dictated and transcribed by [employer]. Business Broker variances may occur. Despite proofreading, typographical errors may occur. Occasional wrong-word or 'zkhbc-s-yygf' substitutions may have occurred due to the inherent limitations of voice recording. Read the chart carefully and recognize, using context, where substitutions have occurred. Not available 04/15/2024 10:48:43 06/17/2024 06/17/2024 This note is dictated and transcribed by [employer]. Business Broker variances may occur. Despite proofreading, typographical errors may occur. Occasional wrong-word or 'buwmy-g-xmwj' substitutions may have occurred due to the inherent limitations of voice recording. Read the chart carefully and recognize, using context, where substitutions have occurred. Not available 06/18/2024 15:50:19 Plan of Treatment Reminders Order Date Submit Date Provider Last Modified By Organization Details Last Modified Time Details Appointments Establish ed Patient 15 2024 11:15A DIVINA FayeM Not available Not available Not available Lab None recorded. Referral None recorded. Procedures None recorded. Surgeries None recorded. Imaging None recorded. Medication Orders None recorded. Patient TargetsNo targets recorded. Patient InstructionsNo instructions recorded. Reason for Referral None Reported. Problems Name Problem SNOMED Code Status Onset Date Resolution Date Notes Provider Name and Address Organization Details Recorded Time Hammer toe 091797959 Active 2020 Not Available [facility] 3 19:49:39 Anxiety disorder 859751461 Active 2017 Not Available [facility] 3 19:49:39 Headache 22771973 Active 2017 Not Available [facility] 3 19:49:39 Skin problem 967687702 Active 2017 Not Available [facility] 3 19:49:39 [place] of toe 46694841 Active 2020 Not Available [facility] 3 19:49:39 Diabetes mellitus 78513528 Active 2017 Not Available [facility] 3 19:49:39 Peripheral arterial occlusive disease 367181575 Active 2022 Dirk Tipton DPM [address], [address], [place], [address] , [employer] 3 10:26:08 Pain in left foot 6415786790167 07 Active 2022 Dirk Tipton DPM [address], [address], [place], [address] , [facility] 3 14:17:01 Congenital pes cavus of left foot 2274784748091 9107 Active 2022 Dirk Tipton DPM [address], [address], [place], [address] , [facility] 3 14:25:44 Localized adiposity 782832836 Active 2022 Dirk Tipton DPM [address], [address], [place], [address] , [facility] 3 14:44:01 Pain of left heel 3537516026771 109 Active 2023 Dirk Tipton DPM [address], [address], [place], [address] , [facility] 4 14:56:19 Heel pain 8612078 Active 2023 Dirk Tipton DPM [address], [address], [place], [address] , [facility] 4 21:15:00 Foot callus 833159243 Active 2023 Dirk Tipton DPM [address], [address], [place], [address] , [facility] 4 12:39:26 Dystrophia unguium 48550299 Active 2023 Dirk Tipton DPM [address], [address], [place], [address] , [facility] 15:50:48 Problem Notes None recorded. Procedures Surgical History Date Name Laterality Status Provider Name and Address Organization Details Recorded Time 09/23/20 24 Nail Debridement completed Dirk Tipton DPM [address], [address], [place], [address], [employer] 09/23/2024 14:04:25 09/23/20 24 Callus Debridement, One completed RAYSA Montalvo [address], [place], [address], [facility] 09/23/2024 14:04:15 06/17/20 24 Callus Debridement, One completed Dirk Tipton DPM [address], [address], [place], [address], [facility] 06/18/2024 15:50:05 04/15/20 24 Callus Debridement, One completed Dirk Tipton DPM [address], [address], [place], [address], [facility] 04/15/2024 10:46:07 03/19/20 24 Wound Care-Podiatry completed Nita Petit RN [facility] 03/19/2024 12:29:23 11/07/19 24 Wound Care-Podiatry completed Nita Petit RN [facility] 11/07/2023 14:44:03 10/10/20 23 Wound Care-Podiatry completed Dirk Tipton DPM [address], [address], [place], [address], [facility] 10/10/2023 14:49:17 10/03/20 Wound Care-Podiatry completed Nishi Travis RN [facility] [employer] [facility] 10/03/2023 14:32:16 09/19/20 23 Wound Care-Podiatry completed Dirk Tipton DPM [address], [address], [place], [address], [facility] 09/20/2023 14:11:41 08/29/20 23 Wound Care-Podiatry completed Rob Timmons RN [facility] [employer] [facility] 08/29/2023 14:40:27 08/22/20 23 Wound Care-Podiatry completed Dirk Tipton DPM [address], [address], [place], [address], [facility] 08/29/2023 12:17:35 08/15/20 23 Wound Care-Podiatry completed Dirk Tipton DPM [address], [address], [place], [address], [facility] 08/20/2023 11:56:37 08/08/20 23 Wound Care-Podiatry completed Rob Timmons RN [facility] [employer] [facility] 08/08/2023 14:18:15 08/01/20 23 Wound Care-Podiatry completed Dirk Tipton DPM [address], [address], [place], [address], [facility] 08/06/2023 09:01:44 07/18/20 23 Wound Care-Podiatry completed Dirk Tipton DPM [address], [address], [place], [address], [employer] 07/19/2023 14:45:06 07/04/20 Wound Care-Podiatry completed Dirk Tipton DPM [address], [place], [address], [employer] [facility] [employer] 07/04/2023 13:43:38 06/20/20 Wound Care-Podiatry completed Rob Timmons RN [facility] [employer] 06/20/2023 12:49:36 06/13/20 Wound Care-Podiatry completed Dirk Tipton DPM [address], [place], [address], [employer] [facility] [employer] 06/13/2023 15:10:21 06/06/20 Wound Care-Podiatry completed Dirk Tipton DPM [address], [place], [address], [employer] 06/13/2023 15:05:09 05/23/20 Wound Care-Podiatry completed Nita Petit RN [facility] [employer] 05/23/2023 11:44:49 05/16/20 Wound Care-Podiatry completed Dirk Tipton DPM [address], [address], [place], [address], [facility] [employer] 05/16/2023 14:22:15 05/09/20 Wound Care-Podiatry completed Dirk Tipton DPM [address], [place], [address], [employer] [facility] [employer] 05/09/2023 11:10:15 other completed Not Available [facility] 10/2022 19:49:01 Cataract Surgery completed Not Available [facility] 12/20/2022 19:49:01 Imaging Results None recorded. Procedure Notes None recorded. Medical Equipment None Reported. Allergies No known drug allergies Medications Name Sig Start Date Stop Date Status Note LastModified by Organization Details LastModified Time buspirone 5 mg tablet TAKE ONE TABLET BY MOUTH TWICE DAILY EVERY MORNING & EVENING WITH MEALS FOR ANXIETY active Not Available Not Available No t Available metformin 500 mg tablet TAKE TWO TABLETS BY MOUTH EVERY MORNING AND THREE TABLETS EVERY EVENING FOR DIABETES active Not Available Not Available No t Available bupropion HCl SR 150 mg tablet,12 hr sustained-r elease TAKE ONE TABLET BY MOUTH TWICE DAILY EVERY MORNING & EVENING FOR NERVES OR FOR ANXIETY active Not Available Not Available No t Available promethazin e-DM 6.25 mg-15 mg/5 mL oral syrup TAKE 5ML BY MOUTH EVERY 6 HOURS NEEDED FOR 10 DAYS active Not Available Not Available No t Available doxycycline hyclate 100 mg capsule TAKE ONE CAPSULE TWICE DAILY UNTIL ALL TAKEN active Not Available Not Available No t Available naproxen 375 mg tablet TAKE ONE TABLET BY MOUTH TWICE DAILY NEEDED 08/15 completed Not Available Not Available Not Available donepezil 5 mg tablet TAKE ONE TABLET BY MOUTH EVERY NIGHT AT BEDTIME active Not Available Not Available No t Available clindamycin HCl 300 mg capsule TAKE ONE CAPSULE BY MOUTH EVERY 8 HOURS FOR 10 DAYS 05/09 completed Not Available Not Available Not Available triamcinolo ne acetonide 0.5 % topical cream APPLY A THIN LAYER TO AFFECTED AREA TWICE DAILY active Not Available Not Available No t Available cetirizine 10 mg tablet TAKE ONE TABLET DAILY active Not Available Not Available No t Available atorvastati n 10 mg tablet TAKE ONE TABLET BY MOUTH EVERY NIGHT AT BEDTIME TO LOWER CHOLESTER OL active Not Available Not Available No t Available azithromyci n 250 mg tablet TAKE 2 TABLETS BY MOUTH ON DAY 1, THEN TAKE 1 TABLET DAILY ON DAYS 2-5 05/09 completed Not Available Not Available Not Available ibuprofen 800 mg tablet TAKE ONE TABLET BY MOUTH EVERY DAY NEEDED 08/15 completed Not Available Not Available Not Available ofloxacin 0.3 % eye drops active Not Available Not Available Not Available tizanidine 4 mg tablet TAKE ONE TABLET BY MOUTH TWICE DAILY NEEDED active Not Available Not Available No t Available benzonatate 200 mg capsule TAKE ONE CAPSULE BY MOUTH THREE TIMES DAILY NEEDED FOR COUGH active Not Available Not Available No t Available hydrocodone 5 mg-acetamin ophen 325 mg tablet TAKE ONE TABLET BY MOUTH TWICE DAILY NEEDED FOR SEVEN DAYS 05/09 completed Not Available Not Available Not Available lidocaine 4 % topical cream APPLY TO THE AFFECTED AREA(S) OF THE BODY FOUR TIMES DAILY active Not Available Not Available No t Available penicillin V potassium 500 mg tablet 05/12 completed Not Available Not Available Not Available acetaminoph en 300 mg-codeine 30 mg tablet TAKE ONE TABLET BY MOUTH EVERY 8 HOURS NEEDED active Not Available Not Available No t Available omeprazole 40 mg capsule,del ayed release TAKE ONE CAPSULE BY MOUTH EVERY DAY BEFORE A MEAL FOR STOMACH active Not Available Not Available No t Available tramadol 50 mg tablet TAKE ONE TABLET BY MOUTH EVERY 6-8 hours active Not Available Not Available No t Available ketorolac 0.5 % eye drops active Not Available Not Available Not Available famotidine 20 mg tablet TAKE 1 TABLET BY MOUTH THREE TIMES DAILY active Not Available Not Available No t Available prednisolon e acetate 1 % eye drops,suspe nsion 02/23 completed Not Available Not Available Not Available lorazepam 0.5 mg tablet TAKE ONE TABLET BY MOUTH TWICE DAILY BEFORE MEALS active Not Available Not Available No t Available tamsulosin 0.4 mg capsule TAKE ONE CAPSULE BY MOUTH EVERY MORNING FOR PROSTATE active Not Available Not Available No t Available dicyclomine 20 mg tablet TAKE 1 TABLET BY MOUTH FOUR TIMES DAILY active Not Available Not Available No t Available [email or web address] Ultra Test strips USE TO CHECK BLOOD SUGAR THREE TIMES DAILY, MORNING, MIDDAY & IN THE EVENING active Not Available Not Available No t Available baclofen 10 mg tablet TAKE ONE TABLET BY MOUTH THREE TIMES DAILY NEEDED active Not Available Not Available No t Available doxycycline monohydrate 100 mg capsule TAKE ONE CAPSULE BY MOUTH TWICE DAILY active Not Available Not Available No t Available pantoprazol e 40 mg tablet,stan yed release TAKE ONE TABLET BY MOUTH EVERY DAY FOR STOMACH active Not Available Not Available No t Available buspirone 10 mg tablet TAKE ONE TABLET BY MOUTH TWICE DAILY EVERY MORNING & EVENING AFTER MEALS FOR ANXIETY active Not Available Not Available No t Available omeprazole 20 mg capsule,del ayed release TAKE ONE CAPSULE BY MOUTH EVERY DAY FOR STOMACH active Not Available Not Available No t Available gentamicin 0.1 % topical cream APPLY A SMALL AMOUNT TO THE AFFECTED heel ulcer AREA BY TOPICAL ROUTE 3 TIMES PER DAY 08/30 completed Not Available Not Available Not Available gabapentin 100 mg capsule TAKE ONE CAPSULE BY MOUTH TWICE DAILY EVERY MORNING & EVENING FOR NERVE PAIN active Not Available Not Available No t Available methylpredn isolone 4 mg tablets in a dose pack Use as directed on package 05/09 completed Not Available Not Available Not Available ketoconazol e 2 % topical cream 05/12 completed Not Available Not Available Not Available ondansetron 4 mg disintegrat ing tablet PLACE ONE TABLET UNDER THE TONGUE EVERY 6 HOURS NEEDED FOR NAUSEA & FOR VOMITING active Not Available Not Available No t Available fluticasone propionate 50 mcg/actuati on nasal spray,suspe nsion USE ONE SPRAY IN EACH NOSTRIL TWICE DAILY EVERY MORNING & EVENING FOR ALLERGIES active Not Available Not Available No t Available metformin ER 500 mg tablet,exte nded release 24 hr TAKE TWO TABLETS BY MOUTH EVERY EVENING WITH dinner FOR DIABETES active Not Available Not Available No t Available gentamicin 0.1 % topical ointment apply a SMALL AMOUNT TO AFFECTED AREAS of heel wound THREE TIMES DAILY active Not Available Not Available No t Available amoxicillin 875 mg-potassiu m clavulanate 125 mg tablet TAKE ONE TABLET BY MOUTH TWICE DAILY 05/09 completed Not Available Not Available Not Available escitalopra m 10 mg tablet TAKE ONE TABLET BY MOUTH EVERY MORNING FOR DEPRESSIO N active Not Available Not Available No t Available escitalopra m 20 mg tablet TAKE ONE TABLET BY MOUTH EVERY DAY active Not Available Not Available No t Available Novolog Mix 70-30 FlexPen U-100 Insulin 100 unit/mL subcutaneou s pen INJECT 35 UNITS UNDER THE SKIN TWICE DAILY BEFORE MEALS active Not Available Not Available No t Available Wellbutrin XL 150 mg 24 hr tablet, extended release Take 1 tablet every day by oral route. 02/23 completed Not Available Not Available Not Available aripiprazol e 2 mg tablet TAKE ONE TABLET BY MOUTH EVERY DAY active Not Available Not Available No t Available Lantus Solostar U-100 Insulin 100 unit/mL (3 mL) subcutaneou s pen INJECT 16 UNITS UNDER THE SKIN EVERY EVENING active Not Available Not Available No t Available Linzess 145 mcg capsule 02/23 completed Not Available Not Available Not Available TRUEplus Pen Needle 31 gauge x 03/06 active Not Available Not Available Not Available OneTouch Delica Plus Lancet 30 gauge active Not Available Not Available Not Available [employer] At-Home COVID-19 Test kit USE DIRECTED active Not Available Not Available No t Available Vitals Date Recorded Heart rate Respiratory rate Oxygen saturation Oxygen saturation in Arterial blood by Pulse oximetry Systolic blood pressure Diastolic blood pressure Provider Name and Address Organization Details Last Updated DateTime 4 99 /min 14 /min 97 % 97 % 133 mm[Hg] 82 mm[Hg] Debbie Cruz [facility] 4 17:54:02 Date Recorded Body temperature Oxygen saturation Oxygen saturation in Arterial blood by Pulse oximetry Heart rate Respiratory rate Systolic blood pressure Diastolic blood pressure Provider Name and Address Organization Details Last Updated DateTime 4 97.9 [degF] 97 % 97 % 88 /min 14 /min 120 mm[Hg] 70 mm[Hg] Nita Petit RN [facility] 4 12:21:51 Date Recorded Body height Provider Name an d Address Organization Details Last Updated DateTime 04/15/2024 170.18 cm Juliette Tolentino [facility] 04/15/2024 10:34:54 Date Recorded Body height Heart rate Systolic blood pressure Diastolic blood pressure Provider Name and Address Organization Details Last Updated DateTime 06/17/2024 170.18 cm 97 /min 83 mm[Hg] 42 mm[Hg] Juliette Tolentino [facility] 06/17/2024 12:13:24 Date Recorded Body height Heart rate Respiratory rate Oxygen saturation Oxygen saturation in Arterial blood by Pulse oximetry Systolic blood pressure Diastolic blood pressure Provider Name and Address Organization Details Last Updated DateTime 4 170.18 cm 105 /min 14 /min 98 % 98 % 135 mm[Hg] 68 mm[Hg] Debbie Cruz [facility] 4 12:38:45 Social History Question Answer Notes LastModified by Organizat ion Details LastModified Time Tobacco Smoking Status Never Smoker Delia yates [facility] 05/16/2023 11:10:04 What Is Your Level Of Alcohol Consumption? None [id number] Information not available 12/20/2022 What Is Your Level Of Caffeine Consumption? Occasional [id number] Information not available 12/20/2022 In The 14 Days Before Symptom Onset, Have You Had Close Contact With A Laboratory-confir med COVID-19 While That Case Was Ill? No Information not available 05/16/2023 In The 14 Days Before Symptom Onset, Have You Had Close Contact With A Person Who Is Under Investigation For COVID-19 While That Person Was Ill? No Information not available 05/16/2023 What Type Of Diet Are You Following? REGULAR [id number] Information not available 12/20/2022 Do You Or Have You Ever Used E-cigarettes Or Vape? Never Used Electronic Cigarettes Information not available 05/16/2023 What Was The Date Of Your Most Recent Tobacco Screening? 05/12/2021 Information not available 05/16/2023 What Is Your Relationship Status? [id number] Information not available 12/20/2022 Do You Or Have You Ever Used Smokeless Tobacco? Never Used Smokeless Tobacco [id number] Information not available 12/20/2022 How Much Tobacco Do You Smoke? No [id number] Information not available 12/20/2022 Do You Use Any Illicit Or Recreational Drugs? No Information not available 05/16/2023 How Many Years Have You Smoked Tobacco? 0 Information not available 05/16/2023 Do You Have Any Dietary Restrictions? No Information not available 05/16/2023 Sex: Unknown Functional Status None recorded. Mental Status None recorded. Family History Relationship Description Onset Age of this Age Resolved Age Notes LastModified by Organization Details LastModified Time Mother Gallstone [id number] Not available 12/20/2022 19:49:01 Sister Gallstone [id number] Not available 12/20/2022 19:49:01 Medical History Condition Response DIABETES, TYPE Y HEARTBURN / REFLUX Y GERD/NAUSEA Y Past Encounters Encounter ID Performer Location Encounter Start Date Encounter Closed Date Diagnosis/Indication Diagnosis SNOMED-CT Code Diagnosis ICD10 Code Diagnosis Note [id number] [facility] [place] [address] [facility] [place] [address] 05/12/2021 00:00:00 05/12/2021 15:54:32 [id number] [facility] [address] [facility], [address] [place] [address] 02/23/2022 00:00:00 02/23/2022 14:12:39 [id number] [facility] [address] [facility] [address] [place] [address] 03/14/2022 00:00:00 03/14/2022 15:48:26 [id number] Dirk Tpiton DPM [facility] [address] [place] [address] 05/09/2023 09:07:22 05/09/2023 10:48:27 Ulcer of left foot due to type 2 diabetes mellitus 3353340860 5004060 E11.621 Discontinu e clindamyci nRx doxycyclin ex-rays orderedRx topical gentamicin apply 3 times daily with dressingre commend no pressure to the foot use crutches when walking no weight left footfollow -up 1 weekfollow -up cultures from today Peripheral arterial occlusive disease 922075196 I73.9 obtain noninvasiv e vascular testing for healing potential Cellulitis of left foot 0402399155 5275899 L03.116 as above Blister of foot 49536875 3 S90.822A as above Wound pain 869988766 R52 [id number] Dirk Tipton DPM [facility] [address] [place] [address] 05/16/2023 11:09:47 05/16/2023 18:06:10 Ulcer of left foot due to type 2 diabetes mellitus 8272913386 4528048 E11.621 x-rays negative for erosive changescon tinue daily dressingsR x topical gentamicin apply 3 times daily with dressingre commend no pressure to the foot use crutches when walking no weight left footfollow -up 1 weekcultur es skin khalif Peripheral arterial occlusive disease 634981888 I73.9 obtain noninvasiv e vascular testing reviewed with the patient mild-to-mo derate diseaseref erred to vascular Cellulitis of left foot 8813822450 9418076 L03.116 resolved Blister of foot 73164955 3 S90.822A resolved [id number] Dirk Tipton DPM [facility] [address] [place] [address] 05/23/2023 11:28:43 05/23/2023 16:55:11 Ulcer of left foot due to type 2 diabetes mellitus 7733707754 1218621 E11.621 x-rays negative for erosive changescon tinue daily dressingsR x topical gentamicin apply 3 times daily with dressingre commend no pressure to the foot use crutches when walking no weight left footfollow -up 2 weekcultur es skin khalif [id number] [facility] [address] [place] [address] 06/06/2023 12:32:59 06/06/2023 16:14:06 Ulcer of left foot due to type 2 diabetes mellitus 9547222604 1248827 E11.621 x-rays negative for erosive changes 05-16contin ue daily dressingsw ound debridedRx topical gentamicin apply 3 times daily with dressingre commend no pressure to the foot use crutches when walking no weight left footfollow -up 1 weekcultur es skin khalif [id number] [facility] [address] [place] [address] 06/13/2023 14:17:11 06/13/2023 14:51:42 Ulcer of left foot due to type 2 diabetes mellitus 6725091495 0304630 E11.621 x-rays negative for erosive changes 05-16-- repeat x-rays prior to next visitconti nue daily dressingsw ound debridedRx topical gentamicin apply 3 times daily with dressingre commend no pressure to the foot use crutches when walking no weight left footfollow -up 1 weekrepeat skin cultures today [id number] [facility] [address] [place] [address] 06/20/2023 12:36:18 06/20/2023 12:58:37 Ulcer of left foot due to type 2 diabetes mellitus 4703140717 0970964 E11.621 x-rays negative for erosive changescon tinue daily dressingsR x topical gentamicin apply 3 times daily with dressingre commend no pressure to the foot use crutches when walking no weight left footfollow -up 2 weekcultur es skin khalif [id number] [facility] [address] [place] [address] 07/04/2023 12:48:27 07/04/2023 14:13:08 Ulcer of left foot due to type 2 diabetes mellitus 6683263715 6739916 E11.621 repeat x-rayswoun d debrided without incidentEn doform applied to the wound bedcontinu e daily dressingsr ecommend no pressure to the foot use crutches when walking no weight left footfollow -up 2 week [id number] Dirk Tipton DPM [facility] [address] [place] [address] 07/18/2023 14:01:21 07/18/2023 14:22:35 Ulcer of left foot due to type 2 diabetes mellitus 8693123925 5106481 E11.621 repeat x-rayswoun d debrided without incidentEn doform applied to the wound bedcontinu e daily dressingsr ecommend no pressure to the foot use crutches when walking no weight left footfollow -up 2 week [id number] Dirk Tipton DPM [facility] [address] [place] [address] 08/01/2023 14:06:26 08/01/2023 15:05:21 Ulcer of left foot due to type 2 diabetes mellitus [id number] 3611759 E11.621 repeat x-rayswoun d debrided without incidentEn doform applied to the wound bedcontinu e daily dressingsr ecommend no pressure to the foot use crutches when walking no weight left footfollow -up 1 week [id number] Dirk Tipton DPM [facility] [address] [place] [address] 08/08/2023 14:03:35 08/08/2023 14:33:37 Ulcer of left foot due to type 2 diabetes mellitus [id number] 0393679 E11.621 repeat x-rays negative for erosive changescul tures, skin floraGenta micin applied to the wound bedcontinu e daily dressingsr ecommend no pressure to the foot use crutches when walking no weight left footfollow -up 1 week Pain in left foot 210081 3254 28209 M79.672 Congenital pes cavus of left foot [id number] 6635418 Q66.72 Rx custom inserts due to recurrent wound [id number] [facility] [address] [place] [address] 08/15/2023 14:03:43 08/15/2023 14:56:46 Ulcer of left foot due to type 2 diabetes mellitus [id number] 7915934 E11.621 repeat x-rays negative for erosive changescul tures, skin floraGenta micin applied to the wound bedcontinu e daily dressingsr ecommend no pressure to the foot use crutches when walking no weight left footfollow -up 1 week Pain in left foot 890445 5588 32925 M79.672 Congenital pes cavus of left foot 4231618586 5782220 Q66.72 Rx custom inserts due to recurrent wound [id number] [facility] [address] [place] [address] 08/22/2023 12:41:17 08/23/2023 14:40:42 Ulcer of left foot due to type 2 diabetes mellitus [id number] 5181007 E11.621 repeat x-rays negative for erosive changescul tures, skin floraGenta micin applied to the wound bedcontinu e daily dressingsw ound debrided today per noterecomm end no pressure to the foot use crutches when walking no weight left footfollow -up 1 week Pain in left foot 688498 4547 71949 M79.672 Kill wound Congenital pes cavus of left foot 3785290938 2130221 Q66.72 Rx custom inserts due to recurrent wound [id number] [facility] [address] [place] [address] 08/29/2023 14:08:01 08/29/2023 14:42:17 Peripheral arterial occlusive disease 908447922 I73.9 obtain noninvasiv e vascular testing reviewed with the patient mild-to-mo derate diseaseref erred to vascular Ulcer of l eft foot due to type 2 diabetes mellitus 6664685874 6865961 E11.621 repeat x-rays negative for erosive changescul tures, skin floraconti nue at home Gentamicin to the wound bedcontinu e daily dressingsr ecommend no pressure to the foot use crutches when walking no weight left footplanne d OR debridemen t with wound VAC applicatio norder wound VACfollow- up 1 week [id number] Dirk Tipton DPM [facility] [address] [place] [address] 09/19/2023 14:14:12 09/19/2023 14:38:55 Ulcer of left foot due to type 2 diabetes mellitus 1154083056 1713488 E11.621 wound debrided todayconti nue at home Gentamicin to the wound bedcontinu e daily dressingsw ill start wound VAC once obtainedre commend no pressure to the foot use crutches when walking no weight left footfollow -up 1 week Peripheral arterial occlusive disease 332089583 I73.9 obtain noninvasiv e vascular testing reviewed with the patient mild-to-mo derate diseaseref erred to vascular Wound pain 461822874 R52 left heel [id number] [facility] [address] [place] [address] 10/03/2023 14:01:58 10/03/2023 18:10:08 Ulcer of left foot due to type 2 diabetes mellitus 2216343733 5028940 E11.621 HealedDisc ontinue woundConti nue offloading to prevent recurrence Peripheral arterial occlusive disease 809961873 I73.9 obtain noninvasiv e vascular testing reviewed with the patient mild-to-mo derate diseaseref erred to vascular Wound pain 390155289 R52 left heel Localized adiposity 2704 00770 E65 Offloading of the heel with cut-out to insert and felt with cut-out offloaded to the central heelImmedi ate relief upon weight-margot ring [id number] Dirk Tipton DPM [facility] [address] [place] [address] 10/10/2023 14:29:04 10/11/2023 10:40:49 Ulcer of left foot due to type 2 diabetes mellitus 5910616092 9198071 E11.621 Wound debrided todayBetad ine wet-to-dry dressingCo ntinue offloading with cut-out insertFoll ow-up 3 weeks Peripheral arterial occlusive disease 959124578 I73.9 obtain noninvasiv e vascular testing reviewed with the patient mild-to-mo derate diseaseref erred to vascular Wound pain 978029833 R52 left heel Localized adiposity 2704 01357 E65 Offloading of the heel with cut-out to insert and felt with cut-out offloaded to the central heelImmedi ate relief upon weight-margot ring [id number] Dirk Tipton DPM [facility] [address] [place] [address] 11/07/2023 14:04:41 11/07/2023 14:51:34 Ulcer of left foot due to type 2 diabetes mellitus 7685426360 4091487 E11.621 HealedReco mmend multi density inserts with cutoutReco mmend supportive shoe gearFollow -up 1 month Peripheral arterial occlusive disease 059085456 I73.9 obtain noninvasiv e vascular testing reviewed with the patient mild-to-mo derate diseaseref erred to vascular Localized adiposity 2704 74489 E65 Offloading of the heel with cut-out to insert and felt with cut-out offloaded to the central heelImmedi ate relief upon weight-margot ring Pain of left heel 484978 0428 530526 M79.672 left heelFollow -up with PCP for continued pain management or we will refer to Pain Management [id number] Dirk Tipton DPM [facility] [address], [facility] [address] [place] [address] 12/18/2023 17:50:21 12/21/2023 07:43:25 Heel pain 1232038 M79.672 new offloading to the heeloffloa ding with felt cut out added to shoe gearreturn to clinic in 2 [place] feet daily for wounds, if presents return immediatel y [id number] Dirk Tipton DPM [facility] [address] [place] [address] 03/19/2024 11:54:45 03/19/2024 16:48:07 Pain of left heel [id number] 741925 M79.672 left heel Localized adiposity 2704 52355 E65 continue current therapyrec ommend offloading inserts previously dispensedr ecommend supportive shoe gear such as Hoka with rocker bottom sole Foot callus 797914170 L8 4 debrided without incidentre commend use of pumice stone dailydaily use of Amlactin lotionfoll ow-up in 1- 2 months as needed [id number] Dirk Tipton DPM [facility] [address], [facility] [address] [place] [address] 7 04/15/2024 10:25:20 04/16/2024 12:35:58 Foot callus 492567982 L84 debrided without incidentre commend use of pumice stone dailydaily use of Amlactin lotionfoll ow-up in 2 months as needed Pain of left heel 098644 2800 802358 M79.672 left heelcontin ue offloading with accommodat jaior insoles and supportive shoe gearMonito r for wounds infection Diabetes mellitus 502226 09 E11.9 continue diabetic control per PCP recommenda tion [id number] Dirk Tipton DPM [facility] [address], [place] [address] 06/17/2024 12:04:07 06/19/2024 11:14:59 Diabetes mellitus 54141279 E11.9 continue diabetic control per PCP recommenda tion Foot callus 847988948 L8 4 debrided without incidentre commend use of pumice stone dailydaily use of Amlactin lotionfoll ow-up in 2 months as needed Heel pain 0596893 M79.67 2 continue offloading to the heelcontin ue supportive shoe gearreturn to clinic in 2 [place] feet daily for wounds, if presents return immediatel y Dystrophia unguium 98385 009 L60.3 nails debrided without incident [id number] Dirk Tipton DPM [facility] [address], [facility] [address] [place] [address] 09/23/2024 12:35:33 10/17/2024 13:45:27 Diabetes mellitus 60091756 E11.9 continue diabetic control per PCP recommenda tion Dystrophia unguium 23361 009 L60.3 nails debrided without incident Foot callus 499869730 L8 4 debrided without incidentre commend use of pumice stone dailydaily use of Amlactin lotionfoll ow-up in 2 months as needed Heel pain 6739820 M79.67 2 continue offloading to the heelcontin ue supportive shoe gearreturn to clinic in 2 [place] feet daily for wounds, if presents return immediatel y Health Concerns Section Related Observation LastModified by Organization Detai ls LastModified Time None Recorded Concern Status LastModified by Organization Details LastModified Time None Recorded Advance Directives Directive None Recorded Payers Encounter Date Sequence Insurance Name Policy Number Policy Guthrie Covered Member ID Guthrie Member ID Guarantor Name 12/18/2023 1 [employer] (MEDICARE REPLACEMENT HMO) [id number] L Jadon E Andi [id number] Jadon E Andi 03/19/2024 1 [employer] (MEDICARE REPLACEMENT HMO) [id number] L Jadon E Andi [id number] Jadon E Andi 04/15/2024 1 [employer] (MEDICARE REPLACEMENT HMO) [id number] L Jadon E Andi [id number] Jadon E Andi 06/17/2024 1 [employer] (MEDICARE REPLACEMENT HMO) [id number] L Jadon E Andi [id number] Jadon E Andi 09/23/2024 1 [employer] (MEDICARE REPLACEMENT HMO) [id number] L Jadon E Andi [id number] Jadon E Andi Notes Date Note Type Note Provider Name and Address Organization Details Recorded Time 12/18/2023 text/html patient follows up post heel ulcer healing, had accommodative insoles. denies any new wounds. state he does cont to have mild pain to the heel when walking for a long time. Dirk Tipton DPM [address] [facility], [facility] [address], [place], [address], [facility] 12/20/2023 21:16:54 03/19/2024 text/html . Patient is a 73-year-old male who presents the office for follow-up on possible wound to left heel. Patient presents with a callus with pain to the heel. Patient has a lack of fat pad and has a pinpoint callus which present secondary to lack of fat pad in weight-bearing. Patient has had previous wounds in the past but has no current open wounds or signs of infection. I have discussed multiple times offloading techniques to which the patient does not perform and continues to wear house slippers in to my clinic. I discussed again today at length the importance of supportive shoe gear I recommended Hoka with a rocker style bottom shoe to remove pressure from the heel and more centrally located to the foot plantarly. Patient denies any other complaints. Dirk Tipton DPM [address], [address], [place], [address], [employer] 03/19/2024 12:41:03 04/15/2024 text/html . Patient is a 73-year-old male diabetic who returns for follow-up on diabetic foot care. Patient has history of a wound to the plantar left heel. Patient has remained healed he has a minor callus to the area. Patient was educated on supportive shoe gear as well as accommodative offloading insoles. Patient is wearing a gel style insole and slip-on style shoes I did recommend foam base shoe which he has a harder foam base shoe he was suggested to get more of a softer foam base shoe such as new balance or a 6 which he does not have. Patient denies any recurrent wounds. Patient states he does continue to have pain to the plantar heel secondary to a lack of fat pad. Patient denies any fever, chills, nausea or vomiting. Dirk Tipton DPM [address], [address], [place], [address], [employer] 04/15/2024 10:49:17 06/17/2024 text/html continued pain l eft plantar heel, debrided without incidentcontinue supportive shoe gear and insolesnails cut 1 through 10 Dirk Tipton DPM [address], [address], [place], [address], [employer] 06/18/2024 15:51:12 09/23/2024 text/html . Patient is a 73-year-old male who returns to the office for follow-up on diabetic foot care overall he is doing well he denies any open wounds who states he does have pain to the plantar heel secondary to the callus he denies any redness or drainage. Patient continues to utilize offloading means which is helping. Patient denies any other complaints and like his nails cut. Dirk Tipton DPM [address] [facility], [facility] [address], [place], [address], [facility] 09/23/2024 14:04:56
--- OUTSIDE RECORDS SUMMARY | 2024-12-10 21:48 | XMS_ITS | Clinical Summary ---
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 Gender Identity Not on file Sexual Orientation Not on file Plan of Treatment Upcoming Encounters Date Type Department Care Team (Late st Contact Info) Description 01/06/2025 8:00 AM CDT Office Visit [facility] - [address], [address] [place] [address] Flaquito Centeno MD [address] [place] [address] 03/05/2025 1:20 PM CDT Office Visit [facility] - [address], [address] [place] [address] Kong Grier MD [address] [place] [address] Health Maintenance Due Date Last Done Comments PHQ-2 (Physician [place]) 1960 Hepatitis C 1966 DTaP, Tdap and Td Vaccines ( 1 - Tdap) 1967 Zoster Vaccines (1 of 2) 1998 Annual Medicare Wellness Visit 2013 Pneumococcal Vaccine: 65+ Ye ars (1 of 1 - PCV) 2013 RSV Immunization or 60+ Years (1 - 1-dose 75+ series) 2023 COVID-19 Vaccine (1 - 2023-2 5 season) 2024 Influenza Adult (#1) 2024 PHQ-2 (Physician [place]) 10/22/2024 Meningococcal B Vaccine Aged Out No l onger eligible based on patient's age to complete this topic Meningococcal Vaccine Aged Out No vita dale eligible based on patient's age to complete this topic RSV Immunizations Under 20 Months Aged Out No longer eligible based on patient's age to complete this topic Insurance A[employer]NA Care Teams Solution Engineer Relationship Specialty Start Date End Date Suzan Pierson MD [address] [place] [address] PCP - General EMERGENCY MEDICINE 09/27/23
--- OUTSIDE RECORDS SUMMARY | 2024-12-10 21:48 | XMS_ITS | Clinical Summary ---
Author Organization [facility] Address [address] [place] [address] Care Team Providers Care Molder Machine Name Role Phone Gemma Tijerina MD Primary Care Provider [phone] Allergies No known active allergies Medications buPROPion [...] ear 04/03/2023 Perforation of right tympanic membrane 3 Chronic serous otitis media, left ear 04/03/2023 Surgical History Surgery Date Site/Laterality Comments PELVIC FRACTURE SURGERY Medical History Medical History Date Comments HL (hearing loss) Dizziness Anxiety Depression Diabetes (HCC) GERD (gastroesophageal reflux disease) Cancer (CMS/HCC) (HCC) Family History Relation Name Status Comments Father Mother Social History Tobacco Use Types Packs/Day Years [...] on file 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 Gender Identity Not on file Sexual Orientation Not on file Obstetrics History Last Filed Vital Signs Vital Sign Reading [...] 05/09/2023 4:00 PM CDT Plan of Treatment Health Maintenance Due Date Last Done Comments Albumin Creatinine Ratio, Urine 1948 Depression Screening 1948 Fall Risk Assessment 1948 Hemoglobin A1C 1948 Hepatitis C Screening 1948 Dilated Eye Exam 1948 Foot Exam 1948 Lipid Panel 1948 Pneumococcal vaccine 65+ (1 of 2 - PCV) 1954 DTaP/Tdap/Td Vaccine (1 - Tdap) 1959 Hepatitis B Screening 1966 Zoster Vaccine (1 of 2) 1998 Well Visit 65+ 2013 Influenza Vaccine (#1) 2024 eGFR 07/09/2025 07/09/2024 Procedures Procedure Name Priority Date/Time Associated Diagnosis [...] reviewed 2021. Testing performed by: [facility], [address] [place] [address], [place]., [address] Blood 07/09/2024 9:18 AM CDT 07/09/2024 9:21 AM CDT Johnathan Jones MD LAB BLOOD ORDERABLES Trisha monika Result [facility] [address] [facility] Department [place] [address] from Last 3 Months or Most Recently Relevant to Health Maintenance Insurance AETNA MEDICARE GOLD AETNA MEDICARE GOLD Care Teams Molder Machine Relationship Specialty Start Date End Date Gemma Tijerina MD [address] [place] [address] PCP - General Internal Medicine 02/28/23
--- OUTSIDE RECORDS SUMMARY | 2024-12-10 21:48 | XMS_ITS | Patient Health Summary ---
Author Organization [facility] Address [address] [place] [address] Care Team Providers Care Cut Out Worker Name Role Phone Suzan Pierson MD Primary Care Provider [phone] Note from [facility],non-owned Affiliates and Associated Physician Practices is amultiple site organization consisting of ambulatory clinics and hospital sitesin [place], [place], [place] and [place]. This disclosure is being madepursuant to the Care Everywhere program and may not contain all information available regarding this patient. Last updated 18.[facility] Allergies No known active allergies Medications * Be aware that medications may not be up to date on this document. Alwaysverify current medications with the patient. * acetaminophen-codeine (Tylenol #3) 300-30 MG tablet Take 1 (one) tablet by mouth every 8 hours as needed * ibuprofen (Motrin) 800 MG tablet Take 1 (one) tablet by mouth once daily as needed * busPIRone (Buspar) 10 MG tablet TAKE ONE TABLET BY MOUTH TWICE DAILY AFTER MEALS * escitalopram (Lexapro) 10 MG tablet Take 1 (one) tablet by mouth every morning * gabapentin (Neurontin) 100 MG capsule(Started 04/29/2024) TAKE ONE CAPSULE BY MOUTH TWICE DAILY WITH MEALS FOR PAIN MANAGEMENT * OneTouch Ultra test strip(Started 05/20/2024) USE TO CHECK BLOOD SUGAR THREE TIMES DAILY * Lantus SoloStar pen INJECT 12 UNITS UNDER THE SKIN EVERY EVENING * metFORMIN ER 24hr (Glucophage XR) 500 MG tablet(Started 06/04/2024) Take 2 (two) tablets by mouth daily with dinner 11 refills by 06/04/2025 Social History Tobacco Use Types Packs/Day Years [...] - - Body Mass Index - - Procedures * HEMOGLOBIN A1C - POINT OF CARE (AMB) [facility](Performed 06/04/2024) 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, managed as type 1 (HCC) * DERMATOPATHOLOGY(Performed 03/30/2023) Results * HEMOGLOBIN A1C - POINT OF CARE (AMB) [facility] (06/04/2024 2:34 PM CDT) Pathologist [facility] Hemoglobin A1c POCT 6.7 % [address] BLOOD SPECIMEN / Unknown 06/04/2024 2:34 PM CDT Narrative Authorizing Provider Result Sarai Enamorado MD LAB - POINT OF CARE ORDERABLES Performing Organization Address City/State/[facility] Co de Phone Number [address], [place] [address] [phone] * DERMATOPATHOLOGY (03/30/2023 3:33 AM CDT) Case Report Dermatopathology Report Case: [id number] Authorizing Provider: Robert Albarran DO Collected: 03/30/2023 03:33 AM Ordering Location: [facility] DermPath Lab Received: 04/03/2023 09:30 AM Pathologist: [...] specimen consists of a shave biopsy measuring [id number]. Jar 0. 3 6:16 PM T DERMATOPATHOLOGY [...] characteristic determined by the Dermatopathology Laboratory at [facility], directed by Dr. Neo Mauricio. These tests need not be, and therefore are not, approved by the [place] Food and Drug Administration. The tests are used for clinical purposes. Billing Codes Specimen Charges Stain Charges 58954 1 3 6:16 PM CDT DERMATOPATHOLOGY LABORATORY Embedded Images 3 6:16 PM CDT DERMATOPATHOLOGY LABORATORY Pathology/Cytolo gy TISSUE SPECIMEN FROM SKIN / Unknown 03/30/2023 3:33 AM CDT 04/03/2023 9:30 AM CDT Robert Albarran DO LAB - PATHOLOGY/CYTO LOGY ORDERABLES DERMATOPATHOLOGY LABORATORY [facility] - Department of Dermatology [address] [phone] Care Teams Cut Out Worker Relationship Specialty Start Date End Date Suzan Pierson MD [address] [place] [address] PCP - General Emergency Medicine 02/07/24
[2024-12-10 21:55] VITALS: O2SAT 96
[2024-12-10 22:06] VITALS: O2SAT 97
[2024-12-10 22:15] VITALS: PULSE 119; RESP 18
[2024-12-10 22:32] VITALS: BP 139/89; PULSE 120; RESP 18
[2024-12-10 22:39] LABS: Basophils Percent Auto 0.3 % (0.2-1.2); Eosinophils Percent Auto 0.1 % (0-4.4); Hematocrit 39.4 % (42.0-52.0); Hemoglobin 13.6 g/dL (14.0-18.0); Immature Granulocyte Absolute 0.03 K/mm3 (0.00-0.031); Immature Granulocyte Percent A 0.3 % (0-0.5); Lymphocytes Percent Auto 5.3 % (18.3-44.2); Mean Corpuscular HGB Conc 34.5 g/dl (32-36); Mean Corpuscular Hemoglobin 33.4 pg (26-34); Mean Corpuscular Volume 96.8 fl (80-100); Mean Platelet Volume 9.6 fl (7.4-10.4); Monocytes Absolute Auto 0.8 K/mm3 (0.1-0.6); Monocytes Percent Auto 8.1 % (2.6-8.5); Neutrophils Percent Auto 85.9 % (45.5-73.1); Platelet Count Result 199 k/mm3 (150-375); Red Blood Count 4.07 M/mm3 (4.6-6.20); Red Cell Distribution Width 12.5 % (11.5-14.5); White Blood Count 9.4 K/mm3 (4.5-10.0)
[2024-12-10 22:51] LABS: INR 1.1; Prothrombin Time 14.8 Seconds (11.1-14.7)
[2024-12-10 22:54] LABS: Lactic Acid Reflex 0.9 mmol/L (0.7-2.0)
[2024-12-10 22:56] LABS: Creatine Kinase 110 U/L (55-170)
[2024-12-10] MEDS: LACTATED RINGERS 1,000 ML 999 ML IV CONT ×2 (22:57)
[2024-12-10] MEDS: LACTATED RINGERS 100 ML 999 ML IV CONT (22:57)
[2024-12-10 22:58] LABS: Alanine Aminotransferase 87 U/L (6-50); Albumin Level 4.2 g/dL (3.5-5.1); Alkaline Phosphatase 147 U/L (38-126); Anion Gap 9 mmol/L (4-12); Aspartate Amino Transferase 70 U/L (17-59); Bilirubin,Total 0.8 mg/dL (0.2-1.3); Blood Urea Nitrogen 16 mg/dL (9-20); CRP 6.1 mg/dL (<1.0); Calcium 9.4 mg/dL (8.4-10.2); Carbon Dioxide 27 mmol/L (22-30); Chloride 97 mmol/L (98-107); Estimated CRCL calculation 67 ml/min; Estimated Glomerular Filt Rate > 60; Glucose 175 mg/dL (65-110); Lipase 77 U/L (23-300); Potassium 4.1 mmol/L (3.4-5.0); Sodium 133 mmol/L (137-145)
[2024-12-10 23:03] LABS: Add Urine Microscopic? YES; Appearance Urine Turbid (Clear); Bacteria Urine None Seen /hpf; Bilirubin Urine Negative (Negative); Blood Urine Negative (Negative); Color Urine Yellow (Yellow); Glucose Urine UA Negative (Negative); Ketones Urine 1+ mg/dL (Negative); Leukocyte Esterase Ur Negative LEU/UL (Negative); Nitrate Urine Negative (Negative); Non Pathogenic Casts 0-2; Protein Urine Trace mg/dL (Negative); RBC Urine 0-2 /hpf (0-2); Specific Grav Ur 1.016 (1.001-1.035); Squamous Epithelial Cell Urine None Seen /hpf (Few); WBC Urine 0-5 /hpf (0-3)
[2024-12-10 23:03] LABS: NT Pro B Type Natriuretic Pept 287 pg/mL (19.9-100)
[2024-12-10 23:05] LABS: Troponin I < 0.012 ng/mL (0.000-0.034)
[2024-12-10 23:17] LABS: Influenza A QL RT-PCR Negative (Negative); Influenza B QL RT-PCR Negative (Negative); RSV RNA, RT-PCR Negative (Negative); SARS-CoV-2 RNA PCR Positive (Negative)
[2024-12-10 23:25] VITALS: PULSE 117
--- NOTE | 2024-12-10 23:33 | PC.NURSE ---
Per EDP Barry Zeng hold Cardizem until fluids are finished.
[2024-12-10] MEDS: ACETAMINOPHEN 500 MG TABLET 1000 MG PO (23:40)
[2024-12-11] VITALS (9 sets, daily range): BP systolic 110–124; BP diastolic 51–89; PULSE 74–104; RESP 15–18; TEMP 36.7–37.6; O2SAT 94–100; BMI 21.4; BMI 21.2
[2024-12-11] MEDS: dilTIAZem HCl INJ 25 MG/5 ML VIAL 10 MG IV PUSH (00:37)
[2024-12-11] MEDS: dilTIAZem 100 MG/100 ML 100 MG/100 ML BAG IV CONT (00:43)
--- NOTE | 2024-12-11 01:04 | P.HP_ITS ---
H&P: HPI History of Present Illness Date/Time: 12/11/24 01:04 Chief Complaint: Confusion, weakness, COVID positive, abnormal heart rhythm Narrative: This is a 74-year-old male patient who was admitted to the hospital due to COVID positive status with abnormal heart rhythm apparently new onset atrial flutter requiring diltiazem. Patient also had episode of legs buckling at home generally weak. Last few days his blood sugar has been higher than usual and he has had a slight cough. Patient denies any difficulty breathing or chest pain. He denies any nausea. He was having increased confusion and not performing normal ADLs which is unusual for him. Workup in the emergency department shows that he was positive for COVID. Labs generally unremarkable except blood glucose was 175 and sodium was 133. Chest x-ray unremarkable. CT scan of the head shows old infarct and microvascular changes but nothing acute is obvious. There were 3 L of IV fluids ordered and he received at least 2 L in the ER. Patient was given IV push diltiazem and started on a diltiazem drip at 5 milligrams/hour and admitted to the intermediate care unit. Patient managed to pull out a couple of IV is and has been jumping out of bed. For this reason, discontinue continuous IV fluids. Rhythm converted to sinus with first-degree block per bedside telemetry per my independent interpretation. Ordered EKG as well as oral Cardizem. Vital signs stable. Review of Systems Review of Systems: All systems reviewed & are unremarkable except as noted in HPI and below PMFSH Past Medical History Medical History Chronic anemia Benign prostatic hyperplasia Insulin dependent type 2 diabetes mellitus Skin cancer Kidney stones Anxiety and depression Surgical History Surgical History History of inguinal hernia repair History of right hip replacement Family History Family History Father Cerebrovascular accident Acute myocardial infarction Mother No problems noted. Sibling Cerebral palsy Social History Social History Social History: Surrogate medical decision maker: Kasey Andi, spouse. Code status: Full code. Smoking status: Never smoker Alcohol intake: never Substance use: never Do You Feel Safe in your Home?: Yes Lack of Transportation: No Lack of Food: Never True Current Housing: I Have Housing Concerned About Future Housing: No Difficulty Paying Gas/Electric Bills: No Difficulty Paying for Meds: No Currently Unemployed: No Education: High School Diploma/GED Difficulty w/ Childcare or Family Care: No Living arrangements: with family Additional living arrangements comments: He lives in [place] with his . Additional occupation/education comments: He is retired from the refrigeration industry. Spiritual care concerns: No Meds Home Medications and Allergies Home Medications ?Medication ?Instructions ?Recorded ?Confirmed ?Type bupropion HCl 150 mg tablet,12 hr 150 mg PO BID 01/16/24 12/11/24 History sustained-release buspirone 10 mg tablet 10 mg PO BID 01/16/24 12/11/24 History escitalopram oxalate 20 mg tablet 10 mg PO DAILY 01/16/24 12/11/24 History fluticasone propionate 50 2 spray intranasal DAILY PRN 01/16/24 12/11/24 History mcg/actuation nasal Congestion spray,suspension insulin glargine 100 unit/mL (3 12 unit (0.12 mL) subcut QPM #15 mL 01/18/24 12/11/24 Rx mL) subcutaneous pen (Lantus Solostar U-100 Insulin) aspirin 81 mg tablet,delayed 81 mg PO DAILY 12/11/24 12/11/24 History release (Adult Aspirin Regimen) atorvastatin 10 mg tablet 10 mg PO QPM 12/11/24 12/11/24 History metformin 500 mg tablet 1,000 mg PO DAILY@1700 12/11/24 12/11/24 History Allergies Allergy/AdvReac Type Severity Reaction Status Date / Time No Known Allergies Allergy Verified 02/08/24 20:26 Vital Signs Vital Signs - 24 hr 12/10/24 21:35 12/10/24 21:55 12/10/24 22:06 Temperature 37.0 C Pulse Rate 118 H Respiratory Rate 18 Blood Pressure 159/86 H Pulse Oximetry 100 96 97 Oxygen Delivery Room Air Room Air 12/10/24 22:15 12/10/24 22:32 12/10/24 23:25 Temperature Pulse Rate 119 H 120 H 117 H Respiratory Rate 18 18 Blood Pressure 139/89 Pulse Oximetry Oxygen Delivery 12/11/24 00:43 Temperature Pulse Rate 104 H Respiratory Rate Blood Pressure 110/89 Pulse Oximetry Oxygen Delivery Exam Narrative: GENERAL: Appears elderly and frail. HEAD: Normocephalic, atraumatic. EYES: PERRLA and EOMI. NECK: Supple. No adenopathy or masses. CHEST: No respiratory distress. No wheezing noted. HEART: Sindhu rate and rhythm. Systolic murmur appreciated. Normal peripheral pulses. ABDOMEN: Soft, nontender, nondistended, normal active bowel sounds. MSK: Normal range of motion. No edema. SKIN: Warm, dry, no rash. NEURO: Awake, alert, confused, moves all extremities equally PSYCH: Confused, forgetful H&P: Results Labs Labs: Short CBC 12/10/24 Range/Units 22:22 WBC 9.4 (4.5-10.0) K/mm3 Hgb 13.6 L (14.0-18.0) g/dL Hct 39.4 L (42.0-52.0) % Plt Count 199 (150-375) k/mm3 BMP 12/10/24 22:22 Sodium 133 L Potassium 4.1 Chloride 97 L Carbon Dioxide 27 BUN 16 Creatinine 0.80 Glucose 175 H Calcium 9.4 Cardiac Enzymes 12/10/24 Range/Units 22:22 Total Creatine Kinase 110 (55-170) U/L Troponin I < 0.012 (0.000-0.034) ng/mL Liver Function 12/10/24 Range/Units 22:22 Total Bilirubin 0.8 (0.2-1.3) mg/dL AST 70 H (17-59) U/L ALT 87 H (6-50) U/L Alkaline Phosphatase 147 H (38-126) U/L Albumin 4.2 (3.5-5.1) g/dL Urine 12/10/24 Range/Units 22:51 Urine Color Yellow (Yellow) Urine Appearance Turbid H (Clear) Urine pH 8.0 (5.0-9.0) Ur Specific [place] 1.016 (1.001-1.035) Urine Protein Trace (Negative) mg/dL Urine Glucose (UA) Negative (Negative) mg/dL Pulse Oximetry SpO2 results: 96-100% on room air Attestation: I personally reviewed and interpreted this pulse oximetry as follows: Interpretation: No need for supplemental oxygenation at this time. ECG Attestation: I personally reviewed and interpreted this ECG as follows: ECG completion date: 12/10/24 ECG completion time: 21:41 Prior ECG tracings: not available for review Interpretation: Undetermined tachycardic rhythm, rate 118, QRS duration 120 to with right bundle-branch block, QTC 440, QRS axis 50?, no STEMI, possible atrial flutter versus sinus tachycardia with significant first-degree block. Imaging CT scan - head: Radiologist's impression: EXAMINATION: CT brain wo con DATE: 12/10/2024 22:03 INDICATION: Altered mental status. TECHNIQUE: Computed tomography (CT) of the head was performed without intravenous contrast. The mA was adjusted according to patient size. Iterative reconstruction technique was employed. The dose-length product was 681.00 mGy- cm. COMPARISON: Head CT 02/08/2024 FINDINGS: There are scattered areas of low attenuation in the cerebral white matter. There are old infarcts in the right basal ganglia and right parietal lobe. There is no intracranial hemorrhage, acute infarction, or abnormal intracranial mass lesion. The ventricles are normal in size. There are likely changes of ocular lens replacement surgeries. There is mucosal thickening in the paranasal sinuses. There is dehiscence of anterior wall of right frontal sinus. There is a trace left mastoid effusion. IMPRESSION: 1. 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 2. Stable moderate nonspecific cerebral white matter disease, which likely represents chronic small vessel ischemic disease. Reviewed, dictated and finalized at location A. MANAGER Chest x-ray: Radiologist's impression: EXAMINATION: XR chest 2V DATE: 12/10/2024 22:06 INDICATION: Cough. TECHNIQUE: Frontal and lateral views of the chest were obtained. COMPARISON: Chest 2 views 02/08/2024 FINDINGS: There is no pneumonia, pleural effusion, or pneumothorax. The heart size is normal. IMPRESSION: 1. No acute cardiopulmonary disease. Reviewed, dictated and finalized at location A. MANAGER Assessment and Plan Assessment and plan (1) Atrial flutter: Code(s): I48.92 - Unspecified atrial flutter Status: Acute Assessment and Plan: -Tachycardic rate with 2:1 flutter in ER on arrival -IV diltiazem 10 mg then 5 mg/hr drip in ER -Admitted to IMU -Cardiology consult in AM -Covid positive, likely preciptating event to cause rhythm change and tachycardia -Potassium 4.1, magnesium not resulted, ordered in AM -Patient converted to sinus rhythm with first degree block per my independent interpretation of telemetry -Ordered EKG (2) COVID-19: Code(s): U07.1 - COVID-19 Status: Acute Assessment and Plan: -No shortness of breath or hypoxia -No pneumonia on CXR -Defer remdesivir for this reason (3) Generalized weakness: Code(s): R53.1 - Weakness Status: Acute Assessment and Plan: - reported patient has been unsteady and weak since this morning with change in confusion level -History of dementia but usually able to perform ADLs -Consult PT/OT (4) Insulin dependent type 2 diabetes mellitus: Code(s): E11.9 - Type 2 diabetes mellitus without complications; Z79.4 - assistant terminal manager (current) use of insulin Status: Acute Assessment and Plan: -ACHS fingerstick glucose with low dose SSI -Order hemoglobin A1c -Continue home medications Plan -Admitted to IMU, can likely downgrade in the morning. -PT/OT ordered. -No VTE prophylaxis due to tendency to jump up out of bed suddenly, do not want legs wrapped/confined which may cause fall (no SCD) and do not want increased risk of bleeding if he does fall or get injured as he is already on aspirin. Quality If No VTE Prophylaxis Answer both mechanical and pharmacologic: Reason no mechanical VTE proph: medical contraindication (Fall risk, keeps jumping up out of bed) Reason no pharmacologic proph: medical contraindication (Fall risk, keeps jumping up out of bed) Hospitalist MIPS Advance Care Plan I have confirmed that the patient's Advanced Care Plan is present, code status is documented, or surrogate decision maker is listed in patient medical record.: Yes Medication Reconciliation I have utilized all available resources to obtain, update and review the patients current medications (includes all prescriptions, OTC, herbals, cannabis, and nutritional supplements).: Yes
[2024-12-11] MEDS: SODIUM CHLORIDE 0.9% IV 1,000 ML 125 ML IV CONT (01:16)
[2024-12-11] MEDS: ENOXAPARIN 40 MG/0.4 ML SYRINGE SUB-Q (01:25)
[2024-12-11] MEDS: dilTIAZem HCL 30 MG TABLET PO (03:15)
--- NOTE | 2024-12-11 03:31 | ADMGEN ---
This patient, Jose Manuel Escamilla, was admitted to IMU Room 200-01. Patient/family oriented to hospital policies and general routines including ID bracelet, bed and alarms, visiting hours, pain management, procedures, bathroom and other care routines, personal items, smoking policy, room service/diet, and visiting hours. Information on how to activate the Rapid Response Team has been discussed. Patient/Family are encouraged to report perceived risks to care and to ask questions if they do not understand what they are told or what they should do.
[2024-12-11] MEDS: INSULIN ASPART (*BKC) 100 UNITS/ML SUB-Q (08:59)
[2024-12-11] MEDS: ACETAMINOPHEN 325 MG TABLET 650 MG PO (09:00)
[2024-12-11] MEDS: ESCITALOPRAM OXALATE 10 MG TABLET PO (09:01)
[2024-12-11] MEDS: buPROPion HCL SR (12 HR) 150 MG TAB PO (09:01)
[2024-12-11] MEDS: dilTIAZem HCL CD 120 MG CAP.24HR PO (09:01)
[2024-12-11] MEDS: busPIRone HCL 10 MG TABLET PO (09:01)
[2024-12-11] MEDS: ASPIRIN 81 MG ENTERIC TABLET PO (09:02)
[2024-12-11 09:12] LABS: Glucose Point of Care 202 mg/dl (65-105)
[2024-12-11 09:25] LABS: Basophils Percent Auto 0.4 % (0.2-1.2); Eosinophils Absolute Auto 0.1 K/mm3 (0-0.3); Hematocrit 37.7 % (42.0-52.0); Hemoglobin 12.7 g/dL (14.0-18.0); Immature Granulocyte Absolute 0.03 K/mm3 (0.00-0.031); Immature Granulocyte Percent A 0.4 % (0-0.5); Lymphocytes Percent Auto 13.8 % (18.3-44.2); Mean Corpuscular HGB Conc 33.7 g/dl (32-36); Mean Corpuscular Hemoglobin 33.2 pg (26-34); Mean Corpuscular Volume 98.4 fl (80-100); Mean Platelet Volume 9.5 fl (7.4-10.4); Monocytes Absolute Auto 0.8 K/mm3 (0.1-0.6); Monocytes Percent Auto 10.4 % (2.6-8.5); Neutrophils Absolute Auto 5.9 K/mm3 (1.3-6.7); Platelet Count Result 183 k/mm3 (150-375); Red Blood Count 3.83 M/mm3 (4.6-6.20); Red Cell Distribution Width 12.6 % (11.5-14.5)
[2024-12-11 10:02] LABS: Alanine Aminotransferase 63 U/L (6-50); Albumin Level 3.3 g/dL (3.5-5.1); Alkaline Phosphatase 103 U/L (38-126); Anion Gap 5 mmol/L (4-12); Aspartate Amino Transferase 45 U/L (17-59); Bilirubin,Total 0.7 mg/dL (0.2-1.3); Blood Urea Nitrogen 14 mg/dL (9-20); Calcium 8.4 mg/dL (8.4-10.2); Carbon Dioxide 29 mmol/L (22-30); Chloride 98 mmol/L (98-107); Estimated CRCL calculation 70 ml/min; Estimated Glomerular Filt Rate > 60; Glucose 148 mg/dL (65-110); Magnesium 1.5 mg/dL (1.6-2.3); Phosphorus 3.1 mg/dL (2.5-4.5); Potassium 3.8 mmol/L (3.4-5.0); Sodium 132 mmol/L (137-145)
[2024-12-11] MEDS: REMDESIVIR 200 MG/NS 250 ML 200 MG/250 ML BAG 250 MG IVPB (10:16)
--- NOTE | 2024-12-11 12:16 | P.CONCA_ITS ---
Assessment and Plan Assessment and plan (1) Sinus tachycardia: Code(s): R00.0 - Tachycardia, unspecified Status: Acute Plan 74-year-old man was brought in by EMS for generalized weakness and confusion now admitted for atrial arrhythmia and COVID infection Sinus tachycardia -presenting EKG and telemetry suggests more likely sinus tachycardia and atrial arrhythmias -sinus tachycardia most likely secondary to underlying acute illness -recommend outpatient follow-up and may need 30 day event monitor Please call Cardiology with additional questions. History of Present Illness History of Present Illness Consult date/time: 12/11/24 12:16 Requesting physician: Jerry Okeefe APRN Consult reason: atrial fibrillation Reason For Visit: COVID, New onset afib Narrative: 74-year-old man was brought in by EMS for generalized weakness and confusion now admitted for atrial arrhythmia and COVID infection. He denies any chest discomfort shortness of breath. He states that he is able to ambulate within the confines of his home without any significant cardiopulmonary limitations. He denies any a episodes of syncope. He denies palpitations. Review of Systems 2 Cardiovascular: Cardiovascular: Reports as per HPI Respiratory: Respiratory: Reports as per HPI [facility] Past Medical History Medical History Chronic anemia Benign prostatic hyperplasia Insulin dependent type 2 diabetes mellitus Skin cancer Kidney stones Anxiety and depression Surgical History Surgical History History of inguinal hernia repair History of right hip replacement Family History Family History Father Cerebrovascular accident Acute myocardial infarction Mother No problems noted. Sibling Cerebral palsy Social History Social History Social History: Surrogate medical decision maker: Kasey Escamilla, spouse. Code status: Full code. Smoking status: Never smoker Alcohol intake: never Substance use: never Substance use type: does not use Do You Feel Safe in your Home?: Yes Lack of Transportation: No Lack of Food: Never True Current Housing: I Have Housing Concerned About Future Housing: No Difficulty Paying Gas/Electric Bills: No Difficulty Paying for Meds: No Currently Unemployed: No Education: High School Diploma/GED Difficulty w/ Childcare or Family Care: No Living arrangements: with family Additional living arrangements comments: He lives in [place] with his . Additional occupation/education comments: He is retired from the refrigeration industry. Spiritual care concerns: No Meds Home Medications and Allergies Home Medications ?Medication ?Instructions ?Recorded ?Confirmed ?Type bupropion HCl 150 mg tablet,12 hr 150 mg PO BID 01/16/24 12/11/24 History sustained-release buspirone 10 mg tablet 10 mg PO BID 01/16/24 12/11/24 History escitalopram oxalate 20 mg tablet 10 mg PO DAILY 01/16/24 12/11/24 History fluticasone propionate 50 2 spray intranasal DAILY PRN 01/16/24 12/11/24 History mcg/actuation nasal Congestion spray,suspension insulin glargine 100 unit/mL (3 12 unit (0.12 mL) subcut QPM #15 mL 01/18/24 12/11/24 Rx mL) subcutaneous pen (Lantus Solostar U-100 Insulin) aspirin 81 mg tablet,delayed 81 mg PO DAILY 12/11/24 12/11/24 History release (Adult Aspirin Regimen) atorvastatin 10 mg tablet 10 mg PO QPM 12/11/24 12/11/24 History metformin 500 mg tablet 1,000 mg PO DAILY@1700 12/11/24 12/11/24 History Allergies Allergy/AdvReac Type Severity Reaction Status Date / Time No Known Allergies Allergy Verified 02/08/24 20:26 Vital Signs Vital Signs - 24 hr 12/10/24 21:35 12/10/24 21:55 12/10/24 22:06 Temperature 37.0 C Pulse Rate 118 H Respiratory Rate 18 Blood Pressure 159/86 H Pulse Oximetry 100 96 97 Oxygen Delivery Room Air Room Air 12/10/24 22:15 12/10/24 22:32 12/10/24 23:25 Temperature Pulse Rate 119 H 120 H 117 H Respiratory Rate 18 18 Blood Pressure 139/89 Pulse Oximetry Oxygen Delivery 12/11/24 00:43 12/11/24 01:00 12/11/24 03:00 Temperature 36.8 C Pulse Rate 104 H 103 H 90 Respiratory Rate 15 Blood Pressure 110/89 124/82 Pulse Oximetry 99 Oxygen Delivery 12/11/24 04:00 12/11/24 06:00 12/11/24 08:00 Temperature 37.6 C 37.1 C Pulse Rate 95 77 79 Respiratory Rate 18 18 Blood Pressure 119/60 110/83 Pulse Oximetry 94 100 Oxygen Delivery 12/11/24 08:00 12/11/24 08:00 12/11/24 10:00 Temperature Pulse Rate 83 77 Respiratory Rate Blood Pressure Pulse Oximetry Oxygen Delivery Room Air 12/11/24 12:00 Temperature 36.7 C Pulse Rate 74 Respiratory Rate 18 Blood Pressure 115/51 L Pulse Oximetry 97 Oxygen Delivery Exam 2 Const: General: comfortable HENMT: Mouth: Yes moist mucous membranes Eyes: EOM: EOMs intact bilaterally Neck: Neck: no JVD Resp: Effort & Inspection: normal respiratory effort Cardio: Rate: regular rate Rhythm: regular rhythm Extrem: General: no pedal edema Results Labs and Meds 12/11/24 09:15 12/11/24 09:15 Lab results: Cardiac Enzymes 12/10/24 12/11/24 Range/Units 22:22 09:15 AST 70 H 45 (17-59) U/L Troponin I < 0.012 (0.000-0.034) ng/mL Coagulation 12/10/24 Range/Units 22:22 PT 14.8 H (11.1-14.7) Seconds APTT 33.0 (22.3-36.8) Seconds CBC 12/10/24 12/11/24 Range/Units 22:22 09:15 WBC 9.4 8.0 (4.5-10.0) K/mm3 RBC 4.07 L 3.83 L (4.6-6.20) M/mm3 Hgb 13.6 L 12.7 L (14.0-18.0) g/dL Hct 39.4 L 37.7 L (42.0-52.0) % Plt Count 199 183 (150-375) k/mm3 Lymph # (Auto) 0.50 L 1.10 (0.9-3.2) K/mm3 [place] # (Auto) 0.8 H 0.8 H (0.1-0.6) K/mm3 Eos # (Auto) 0.0 0.1 (0-0.3) K/mm3 Baso # (Auto) 0.0 0.0 (0.0-0.1) K/mm3 Comprehensive Metabolic Panel 12/10/24 12/11/24 Range/Units 22:22 09:15 Sodium 133 L 132 L (137-145) mmol/L Potassium 4.1 3.8 (3.4-5.0) mmol/L Chloride 97 L 98 (98-107) mmol/L Carbon Dioxide 27 29 (22-30) mmol/L BUN 16 14 (9-20) mg/dL Creatinine 0.80 0.71 (0.7-1.3) mg/dL Glucose 175 H 148 H (65-110) mg/dL Calcium 9.4 8.4 (8.4-10.2) mg/dL AST 70 H 45 (17-59) U/L ALT 87 H 63 H (6-50) U/L Alkaline Phosphatase 147 H 103 (38-126) U/L Total Protein 7.0 6.0 L (6.3-8.2) g/dL Albumin 4.2 3.3 L (3.5-5.1) g/dL Intake and Output 12/10/24 12/11/24 12/11/24 23:59 07:59 15:59 Intake Total 100 2000 240 Output Total 200 Balance 100 1800 240 Intake: IV 100 2000 Lactated Ringers 1,000 ml @ 294 755 5024 mls/hr IV CONT .Q1H1M STA Rx#: [id number] Oral 240 Output: Urine 200 Patient Weight 12/11/24 23:59 Weight 65.1 kg
[2024-12-11 12:26] LABS: Glucose Point of Care 182 mg/dl (65-105)
--- NOTE | 2024-12-11 14:15 | PM.DS ---
DS: Admitting Diagnosis Discharge Date 12/11 Admitting Diagnosis Confusion, weakness, COVID positive, abnormal heart rhythm DS: Discharge Diagnosis Discharge Diagnosis (1) Atrial flutter: Code(s): I48.92 - Unspecified atrial flutter Status: Acute (2) COVID-19: Code(s): U07.1 - COVID-19 Status: Acute DS: Summary Hospital Course Hospital Course: This is a 74-year-old male patient who was admitted to the hospital due to COVID positive status with abnormal heart rhythm apparently new onset atrial flutter requiring diltiazem. Patient also had episode of legs buckling at home generally weak. Last few days his blood sugar has been higher than usual and he has had a slight cough. Patient denies any difficulty breathing or chest pain. He denies any nausea. He was having increased confusion and not performing normal ADLs which is unusual for him. Workup in the emergency department shows that he was positive for COVID. Labs generally unremarkable except blood glucose was 175 and sodium was 133. Chest x-ray unremarkable. CT scan of the head shows old infarct and microvascular changes but nothing acute is obvious. There were 3 L of IV fluids ordered and he received at least 2 L in the ER. Patient was given IV push diltiazem and started on a diltiazem drip at 5 milligrams/hour and admitted to the intermediate care unit. Patient managed to pull out a couple of IV is and has been jumping out of bed. For this reason, discontinue continuous IV fluids. Rhythm converted to sinus with first-degree block per bedside telemetry per my independent interpretation. Ordered EKG as well as oral Cardizem. Today patient alert and oriented and oriented x3, eating and drinking and self ambulatory. Patient converted to NSR on PO cardizem. cardiology evaluated and noted that symptoms were likely related to acute illness and recommended holter monitor with outpatient follow up. Patient has received one dose of Remdesivir. Since he is on room air and at baseline function he was dishcarged on Cardizem 120 daily until follow up with cardiology. laso discharged on holter monitor and will contineu follow up with cardiology. F/u with PCP in 3-5 days F/u with cardiology as instructed Time Spent with Patient Time attestation: Total time spent providing and/or coordinating discharge services: DS: Data Data Completed and Pending Labs on day of discharge: Labs from last 24 hours 12/11/24 12/11/24 12/11/24 11:00 09:15 08:58 WBC 8.0 RBC 3.83 L Hgb 12.7 L Hct 37.7 L MCV 98.4 MCH 33.2 MCHC 33.7 RDW 12.6 Plt Count 183 MPV 9.5 Immature Gran % (Auto) 0.4 Neut % (Auto) 74.0 H Lymph % (Auto) 13.8 L [place] % (Auto) 10.4 H Eos % (Auto) 1.0 Baso % (Auto) 0.4 Lymph # (Auto) 1.10 [place] # (Auto) 0.8 H Eos # (Auto) 0.1 Baso # (Auto) 0.0 Abs Immat Gran (auto) 0.03 Absolute Neuts (auto) 5.9 Absolute Nucleated RBC 0.000 Nucleated RBC % 0.0 PT INR APTT Sodium 132 L Potassium 3.8 Chloride 98 Carbon Dioxide 29 Anion Gap 5 BUN 14 Creatinine 0.71 Estim Creat Clear Calc 70 Estimated GFR > 60 Glucose 148 H POC Capillary Glucose 182 H 202 H Hemoglobin A1c 8.0 H Lactic Acid Calcium 8.4 Phosphorus 3.1 Magnesium 1.5 L Total Bilirubin 0.7 AST 45 ALT 63 H Alkaline Phosphatase 103 Total Creatine Kinase Troponin I C-Reactive Protein NT-Pro-B Natriuret Pep Total Protein 6.0 L Albumin 3.3 L Lipase Urine Color Urine Appearance Urine pH Ur Specific [place] Urine Protein Urine Glucose (UA) Urine Ketones Ur Blood (Man) Urine Nitrate Urine Bilirubin Urine Urobilinogen Leukocyte Esterase Rfl Urine RBC Urine WBC Ur Squamous Epith Cells Urine Bacteria Urine Casts Influenza A (RT-PCR) Influenza B (RT-PCR) RSV (RT-PCR) SARS-CoV-2 RNA (RT-PCR) 12/10/24 12/10/24 12/10/24 22:51 22:22 22:17 WBC 9.4 RBC 4.07 L Hgb 13.6 L Hct 39.4 L MCV 96.8 MCH 33.4 MCHC 34.5 RDW 12.5 Plt Count 199 MPV 9.6 Immature Gran % (Auto) 0.3 Neut % (Auto) 85.9 H Lymph % (Auto) 5.3 L [place] % (Auto) 8.1 Eos % (Auto) 0.1 Baso % (Auto) 0.3 Lymph # (Auto) 0.50 L [place] # (Auto) 0.8 H Eos # (Auto) 0.0 Baso # (Auto) 0.0 Abs Immat Gran (auto) 0.03 Absolute Neuts (auto) 8.0 H Absolute Nucleated RBC 0.000 Nucleated RBC % 0.0 PT 14.8 H INR 1.1 APTT 33.0 Sodium 133 L Potassium 4.1 Chloride 97 L Carbon Dioxide 27 Anion Gap 9 BUN 16 Creatinine 0.80 Estim Creat Clear Calc 67 Estimated GFR > 60 Glucose 175 H POC Capillary Glucose Hemoglobin A1c Lactic Acid 0.9 Calcium 9.4 Phosphorus Magnesium Total Bilirubin 0.8 AST 70 H ALT 87 H Alkaline Phosphatase 147 H Total Creatine Kinase 110 Troponin I < 0.012 C-Reactive Protein 6.1 H NT-Pro-B Natriuret Pep 287 H Total Protein 7.0 Albumin 4.2 Lipase 77 Urine Color Yellow Urine Appearance Turbid H Urine pH 8.0 Ur Specific [place] 1.016 Urine Protein Trace Urine Glucose (UA) Negative Urine Ketones 1+ H Ur Blood (Man) Negative Urine Nitrate Negative Urine Bilirubin Negative Urine Urobilinogen 1.0 Leukocyte Esterase Rfl Negative Urine RBC 0-2 Urine WBC 0-5 Ur Squamous Epith Cells None seen Urine Bacteria None seen Urine Casts 0-2 Influenza A (RT-PCR) Negative Influenza B (RT-PCR) Negative RSV (RT-PCR) Negative SARS-CoV-2 RNA (RT-PCR) Positive A Preliminary micro results at discharge 12/10/24 22:23 Blood Culture - Preliminary Blood 12/10/24 22:17 Blood Culture - Preliminary Blood Discharge Plan Discharge Attending physician on discharge: Clementina Sparrow Consulting providers: Judy Cruz Discharging Clinician: Clementina Sparrow Anticipated Discharge Date/Time: 12/11/24 14:07 Patient Disposition: Home, Self-Care Activity: as tolerated Diet: as tolerated Discharge Instructions: 30 days holter monitor Call Dr Rivera for follow up Patient Instructions: Antibiotic Form Patient Language: Slovenian Stand Alone Forms: General Discharge Information Follow-up/Referrals: Farroll,Suzan Larson MD [Primary Care Provider] - (F/u with PCP in 3-5 days ) Judy Cruz, RN [facility] [Advanced Practice Nurse] - (F/u with cardiology in 2 weeks ) Discharge Medications: New diltiazem HCl 120 mg Capsule,Extended Release 24hr 120 mg PO QAM 30 Days Qty: 30 0RF Continued bupropion HCl 150 mg tablet sustained-release 12 hr 150 mg PO BID buspirone 10 mg tablet 10 mg PO BID fluticasone propionate 50 mcg/actuation spray,suspension 2 spray INTRANASAL DAILY PRN (Reason: Congestion) escitalopram oxalate 20 mg tablet 10 mg PO DAILY insulin glargine [Lantus Solostar U-100 Insulin] 100 unit/mL (3 mL) insulin pen 12 unit subcut QPM Qty: 15 0RF atorvastatin 10 mg tablet 10 mg PO QPM aspirin [Adult Aspirin Regimen] 81 mg tablet,delayed release (DR/EC) 81 mg PO DAILY metformin 500 mg tablet 1,000 mg PO DAILY@1700 Rx Instructions: take with dinner Date of admission: 12/11/24 00:59 Primary Care Provider: Dangelo,Suzan Larson Admitting Provider: Clementina Sparrow Attending physician on admission: Clementina Sparrow Condition: Stable
== END 2024-12-11 16:06 | disposition home or self-care (01) ==
LOC: ANHED 12-11 01:21 → ANHIMU 12-11 01:31
PROVIDERS: Nurse Practitioner; Admitting Provider Internal Medicine; Emergency Provider Physician Assistant; PCP Emergency Medicine; Visit Provider Internal Medicine
DX: U07.1 COVID-19 (principal); I48.92 Unspecified atrial flutter; E11.8 Type 2 diabetes mellitus with unspecified complications; R53.1 Weakness; F03.90 Unspecified dementia, unspecified severity, without behavioral disturbance, psychotic disturbance, mood disturbance, and anxiety; N40.0 Benign prostatic hyperplasia without lower urinary tract symptoms; F41.9 Anxiety disorder, unspecified; F32.A Depression, unspecified; D64.9 Anemia, unspecified; Z79.4 Long term (current) use of insulin; Z79.82 Long term (current) use of aspirin; Z79.84 Long term (current) use of oral hypoglycemic drugs; Z79.899 Other long term (current) drug therapy; Z85.828 Personal history of other malignant neoplasm of skin; Z96.641 Presence of right artificial hip joint; Z98.890 Other specified postprocedural states; Z87.442 Personal history of urinary calculi
CPT/HCPCS: 36415; 70450; 71046; 80053; 80069; 81001; 82550; 82948; 83036; 83605; 83690; 83735; 83880; 84484; 85025; 85610; 85730; 86140; 87040; 87637; 93005; 96361; 96372; 96374; 96375; 96376; 99285; A9270; G0378; J0248; J1650; J1815; J7030; J7120